=== PATIENT | male | born 1940 | race Caucasian/White ===

== ENCOUNTER 2018-04-08 19:12 | Inpatient (IN) | payer MEDICARE ==
--- NOTE | 2018-04-08 19:54 | C.PDOC ---
History Of Present Illness 78 year old male presents to the emergency department status-post falling in his bathroom and hitting his head on the bathtub. Patient complains of pain in the back of his head, but denies loss of consciousness. Patient reports that he is feeling nauseous, and states that he has had two episodes of vomiting since the incident. - HPI Chief Complaint (Nursing): Trauma History Per: Patient History/Exam Limitations: no limitations Onset/Duration Of Symptoms: Hrs Location Of Injury: Posterior: Head, Neck - Fall Fall:Prior To Injury: Slipped Past Medical History Reviewed: Historical Data, Nursing Documentation, Vital Signs Vital Signs: Last Vital Signs Temp 97.6 F 04/08/18 19:24 Pulse 60 04/08/18 21:02 Resp 12 04/08/18 21:02 BP 156/94 H 04/08/18 21:02 Pulse Ox 97 04/08/18 21:21 - Medical History PMH: HTN, Hypercholesterolemia Denies: Chronic Kidney Disease Surgical History: No Surg Hx - [facility] Procedures CLOSED ENDOSCOPIC BIOPSY OF LARGE INTESTINE (11/15/14) ESOPHAGOGASTRODUODENOSCOPY [EGD] W/CLOSED BIOPSY (11/15/14) Family History: States: No Known Family Hx - Social History Hx Tobacco Use: No Hx Alcohol Use: No Hx Substance Use: No - Immunization History Hx Tetanus Toxoid Vaccination: No Hx Influenza Vaccination: Yes Hx Pneumococcal Vaccination: Yes Review Of Systems Gastrointestinal: Positive for: Nausea, Vomiting (x2) Musculoskeletal: Positive for: Neck Pain Physical Exam - Physical Exam Appears: Non-toxic, No Acute Distress Skin: Warm, Dry, No Rash Head: Normacephalic Eye(s): bilateral: Normal Inspection Nose: Normal Neck: Normal ROM (no limitations), Midline Cervical Tenderness, Supple Chest: Symmetrical Cardiovascular: Rhythm Regular, No Murmur Respiratory: Normal Breath Sounds, No Rales, No Rhonchi, No Wheezing Gastrointestinal/Abdominal: Normal Exam, Soft, No Tenderness, No Guarding, No Rebound Extremity: Normal ROM Neurological/Psych: Oriented x3, Normal Speech, Normal Cognition, Normal Motor, Normal Sensation, Normal Reflexes ED Course And Treatment - Laboratory Results Result Diagrams: 04/08/18 20:26 04/08/18 20:26 ECG: Interpreted By Me, Viewed By Me ECG Rhythm: Sinus Rhythm, 1st Degree HB, R BBB Interpretation Of ECG: Sinus bradycardia, non-spc IVCD. no acute changes, borderline tracings. Rate From EC O2 Sat by Pulse Oximetry: 97 (RA) Pulse Ox Interpretation: Normal - Radiology CXR: Interpreted by Me CXR Interpretation: Yes: No Acute Disease, Other (multiple odl healed fractured ribs.). No: Infiltrates Nexus Criteria: . Focal Neuro Deficit - CT Scan/US Head Other Rad Studies (CT/US): Read By Radiologist, Radiology Report Reviewed CT/US Interpretation: EXAM: CT Head Without Intravenous Contrast. . EXAM DATE /TIME: 04/08/2018 7:51 PM. . CLINICAL HISTORY: 78 years old, male; Injury or trauma; Fall; Initial encounter; Blunt trauma. (contusions or hematomas) and concussion / head injury. . TECHNIQUE: Axial computed tomography images of the head/brain without intravenous. contrast. All CT scans at this facility use one or more dose reduction. techniques, viz.: automated exposure control; ma/kV adjustment per patient size. (including targeted exams where dose is matched to indication; i.e. head); or. iterative reconstruction technique. . COMPARISON: There are no prior studies for comparison. . FINDINGS: Brain: Ventricles, sulci and gyri appear mildly small for the patient's age. There is no midline shift. Jon white differentiation is maintained. There are. acute bilateral subdural hematomas. There is a chronic component to the. subdural collections bilaterally.. There is subarachnoid hemorrhage along the. right parietal lobe. There is subdural hemorrhage along the tentorium. There. are vascular calcifications. Ventricles: See above. Bones: Cranial vault is intact. Soft tissues: There is a left posterior parietal scalp hematoma. Sinuses: There is no acute sinusitis. There are retention cyst/polyps in the. sinuses. Ears and mastoids: Middle ears and mastoids are unremarkable. Orbits : Orbital contents are unremarkable. . IMPRESSION: Acute bilateral subdural hematomas with chronic component. bilaterally; small amount of subarachnoid hemorrhage along the right parietal. lobe; ventricles, sulci and gyri appear mildly small for patient's age. suggesting possible increase intracranial pressure. . Addendum Dictated By: Rosario Kaba MD. Addendum Dictated Date Time:04/08/18. Addendum Signed by:Rosario Kaba MD. Addendum signed Date Time: 04/08/182104. Addendum Transcribed By: [facility]. Addendum Transcribed Date Time: 04/08/18. . ELENA/ . EXAM: CT Head Without Intravenous Contrast. . EXAM DATE/TIME: 04/08/2018 7: 51 PM. . CLINICAL HISTORY: 78 years old, male; Injury or trauma; Fall; Initial encounter; Blunt trauma. (contusions or hematomas) and concussion / head injury. . TECHNIQUE: Axial computed tomography images of the head/brain without intravenous. contrast. All CT scans at this facility use one or more dose reduction. techniques, viz.: automated exposure control; ma/kV adjustment per patient size. (including targeted exams where dose is matched to indication ; i.e. head); or. iterative reconstruction technique. . COMPARISON: There are no prior studies for comparison. . FINDINGS: Brain: Ventricles, sulci and gyri appear mildly small for the patient's age. There is no midline shift. Jon white differentiation is maintained. There are. acute bilateral subdural hematomas. There is a chronic component to the. subdural collections bilaterally.. There is subarachnoid hemorrhage along the. right parietal lobe. There is subdural hemorrhage along the tentorium. There. are vascular calcifications. Ventricles: See above. Bones: Cranial vault is intact. Soft tissues: There is a left posterior parietal scalp hematoma. Sinuses: There is no acute sinusitis. There are retention cyst/polyps in the. sinuses. Ears and mastoids: Middle ears and mastoids are unremarkable. Orbits: Orbital contents are unremarkable. . IMPRESSION: Acute bilateral subdural hematomas with chronic component. bilaterally; small amount of subarachnoid hemorrhage along the right parietal. lobe; ventricles, sulci and gyri appear mildly small for patient's age. suggesting possible increase intracranial pressure C-Spine CT Other Rad Studies (CT/US): Read By Radiologist, Radiology Report Reviewed CT/US Interpretation: CLINICAL HISTORY: 78 years old, male; Pain; Neck pain; Additional info: Injury. . TECHNIQUE: Axial computed tomography images of the cervical spine without intravenous. contrast. All CT scans at this facility use one or more dose reduction. techniques, viz.: automated exposure control; ma/kV adjustment per patient size. (including targeted exams where dose is matched to indication; i.e. head); or. iterative reconstruction technique. Coronal and sagittal reformatted images were created and reviewed. . COMPARISON: There are no prior studies for comparison. . FINDINGS: Limitations: Technique limits evaluation of intracranial structures. Vertebrae : There is maintenance of the cervical lordosis. There is no. prevertebral soft tissue swelling. There are no fractures. There is multilevel. degenerative change. There is disc space narrowing greatest at C5-C6 and C6-C7. There are degenerative osteophytes greatest at C4-C7. There is degenerative. facet disease at multiple levels.. Facet joints align anatomically. Spinous. processes align in the expected fashion. bony structures are osteopenic. Discs/ spinal canal/neural foramina: See above. Soft tissues: See above. Vasculature: There are vascular calcifications. Dental: There are dental caries and erosions. Thyroid: Thyroid is not optimally demonstrated. Lung apices: Lung apices are clear. Progress Note: Plan: CT C-Spine w/o Contrast. CT Head w/o Contrast. EKG. CMP. CBC Disposition Discussed With Dr.: Israel Salinas Doctor Will See Patient In The: Hospital Counseled Patient/Family Regarding: Diagnosis - Disposition Disposition: HOSPITALIZED Disposition Time: 21:25 Condition: GUARDED Forms: [employer] (Stateless) - Clinical Impression Clinical Impression: Subdural hematoma, post-traumatic, Subarachnoidal hemorrhage - Scribe Statement The provider has reviewed the documentation as recorded by the Scribe (Samir Martinez) Provider Attestation: All medical record entries made by the Scribe were at my direction and personally dictated by me. I have reviewed the chart and agree that the record accurately reflects my personal performance of the history, physical exam, medical decision making, and the department course for this patient. I have also personally directed, reviewed, and agree with the discharge instructions and disposition.
--- NOTE | 2018-04-08 19:56 | C.PDOC ---
- HPI Chief Complaint (Nursing): Trauma Past Medical History Vital Signs: Last Vital Signs Temp 97.6 F 04/08/18 19:24 Pulse 60 04/08/18 19:24 Resp 16 04/08/18 19:24 BP 164/84 H 04/08/18 19:24 Pulse Ox 97 04/08/18 19:24 - Medical History PMH: HTN, Hypercholesterolemia Denies: Chronic Kidney Disease - [facility] Procedures CLOSED ENDOSCOPIC BIOPSY OF LARGE INTESTINE (11/15/14) ESOPHAGOGASTRODUODENOSCOPY [EGD] W/CLOSED BIOPSY (11/15/14) Family History: States: Unknown Family Hx - Social History Hx Tobacco Use: No Hx Alcohol Use: No Hx Substance Use: No - Immunization History Hx Tetanus Toxoid Vaccination: No Hx Influenza Vaccination: Yes Hx Pneumococcal Vaccination: Yes ED Course And Treatment O2 Sat by Pulse Oximetry: 97 Disposition - Disposition
[2018-04-08 20:29] LABS: BASO # 0.1 K/uL (0.0-0.2); BASO % 0.6 % (0.0-2.0); EOS # 0.4 K/uL (0.0-0.7); EOS % 4.2 % (0.0-4.0); HEMOGLOBIN 14.3 g/dL (12.0-18.0); LYMPH # 2.2 K/uL (1.0-4.3); LYMPH % 21.7 % (20.0-40.0); MEAN CELL VOLUME 91.5 fL (80.0-94.0); MEAN CORPUSCULAR HEMOGLOBIN 31.6 pg (27.0-31.0); MEAN CORPUSCULAR HGB CONC 34.5 g/dL (33.0-37.0); MONO # 0.5 K/uL (0.0-0.8); MONO % 4.8 % (0.0-10.0); NEUT # 7.1 K/uL (1.8-7.0); NEUT % 68.7 % (50.0-75.0); RBC 4.52 Mil/uL (4.40-5.90); RED CELL DISTRIBUTION WIDTH 14.6 % (11.5-14.5)
[2018-04-08 20:31] LABS: WHITE BLOOD COUNT 10.4 K/uL (4.8-10.8)
[2018-04-08 20:42] LABS: ALB/GLOB RATIO 1.2 (1.0-2.1); ALBUMIN 4.6 g/dL (3.5-5.0); ALT/SGPT 27 U/L (21-72); AST/SGOT 37 U/L (17-59); BLOOD UREA NITROGEN 19 mg/dL (9-20); CALCIUM 11.1 mg/dl (8.6-10.4); GFR AFRICAN-AMERICAN > 60; GFR NON-AFRICAN AMERICAN > 60
--- NOTE | 2018-04-08 21:03 | CT ---
EXAM: CT Head Without Intravenous Contrast EXAM DATE/TIME: 04/08/2018 7:51 PM CLINICAL HISTORY: 78 years old, male; Injury or trauma; Fall; Initial encounter; Blunt trauma (contusions or hematomas) and concussion / head injury TECHNIQUE: Axial computed tomography images of the head/brain without intravenous contrast. All CT scans at this facility use one or more dose reduction techniques, viz.: automated exposure control; ma/kV adjustment per patient size (including targeted exams where dose is matched to indication; i.e. head); or iterative reconstruction technique. COMPARISON: There are no prior studies for comparison. FINDINGS: Brain: Ventricles, sulci and gyri appear mildly small for the patient's age. There is no midline shift. Jon white differentiation is maintained. There are acute bilateral subdural hematomas. There is a chronic component to the subdural collections bilaterally.. There is subarachnoid hemorrhage along the right parietal lobe. There is subdural hemorrhage along the tentorium. There are vascular calcifications. Ventricles: See above Bones: Cranial vault is intact. Soft tissues: There is a left posterior parietal scalp hematoma Sinuses: There is no acute sinusitis. There are retention cyst/polyps in the sinuses. Ears and mastoids: Middle ears and mastoids are unremarkable Orbits: Orbital contents are unremarkable. IMPRESSION: Acute bilateral subdural hematomas with chronic component bilaterally; small amount of subarachnoid hemorrhage along the right parietal lobe; ventricles, sulci and gyri appear mildly small for patient's age suggesting possible increase intracranial pressure
--- NOTE | 2018-04-08 21:10 | CT ---
EXAM: CT Cervical Spine Without Intravenous Contrast EXAM DATE/TIME: 04/08/2018 7:53 PM CLINICAL HISTORY: 78 years old, male; Pain; Neck pain; Additional info: Injury TECHNIQUE: Axial computed tomography images of the cervical spine without intravenous contrast. All CT scans at this facility use one or more dose reduction techniques, viz.: automated exposure control; ma/kV adjustment per patient size (including targeted exams where dose is matched to indication; i.e. head); or iterative reconstruction technique. Coronal and sagittal reformatted images were created and reviewed. COMPARISON: There are no prior studies for comparison. FINDINGS: Limitations: Technique limits evaluation of intracranial structures. Vertebrae: There is maintenance of the cervical lordosis. There is no prevertebral soft tissue swelling. There are no fractures. There is multilevel degenerative change. There is disc space narrowing greatest at C5-C6 and C6-C7. There are degenerative osteophytes greatest at C4-C7. There is degenerative facet disease at multiple levels.. Facet joints align anatomically. Spinous processes align in the expected fashion. bony structures are osteopenic Discs/spinal canal/neural foramina: See above. Soft tissues: See above. Vasculature: There are vascular calcifications. Dental: There are dental caries and erosions. Thyroid: Thyroid is not optimally demonstrated. Lung apices: Lung apices are clear. IMPRESSION: Osteopenia and degenerative change, no fracture; dental disease
[2018-04-08 21:30] LABS: PROTHROMBIN TIME 10.8 SECONDS (9.7-12.2)
--- NOTE | 2018-04-08 22:37 | CT ---
EXAM: CT Head Without Intravenous Contrast EXAM DATE/TIME: 04/08/2018 10:05 PM CLINICAL HISTORY: 78 years old, male; Injury or trauma; Fall; Initial encounter; Bleeding / hemorrhage; Additional info: Change in mental status; Subdural hematoma TECHNIQUE: Axial computed tomography images of the head/brain without intravenous contrast. All CT scans at this facility use one or more dose reduction techniques, viz.: automated exposure control; ma/kV adjustment per patient size (including targeted exams where dose is matched to indication; i.e. head); or iterative reconstruction technique. Coronal and sagittal reformatted images were created and reviewed. COMPARISON: CT - HEAD W/O CONTRAST 2018-04-08 20:20 FINDINGS: Brain: Ventricles are mildly effaced. There is a 4 mm midline shift to the left at the level of the third ventricle. There is mild effacement of sulci and gyri. Jon white differentiation is visualized. There is been interval increase in size of the acute bilateral subdural hemorrhages. Small chronic components continue to be visualized. There is been interval increase in subarachnoid hemorrhage. There is increased subdural blood along the falx. There continues to be subdural hemorrhage along the tentorium. Ventricles: See above Bones: Cranial vault is intact. Soft tissues: There is a small left posterior parietal scalp hematoma. Sinuses: There is no acute sinusitis. There are retention cyst/polyps in the sinuses. Mastoid air cells: Ears and mastoids: Middle ears and mastoids are unremarkable Orbits: Orbital contents are unremarkable. IMPRESSION: Increasing size of bilateral subdural hematomas, increasing subdural hematoma along the falx; increasing right subarachnoid hemorrhage; interval development of 4 mm midline shift to the left Right subdural collection measures approximately 12.4 mm in the high right parietal region, image 43 series 602 Additional nonemergent findings as described above.
--- NOTE | 2018-04-08 23:07 | CP.PCM.HP ---
Past Patient History - Past Medical History & Family History Past Medical History?: Yes - Past Social History Smoking Status: Never Smoked - CARDIAC Hx Hypercholesterolemia: Yes Hx Hypertension: Yes - PULMONARY Hx Respiratory Disorders: No - NEUROLOGICAL Hx Neurological Disorder: Yes - HEENT Hx HEENT Problems: No - RENAL Hx Chronic Kidney Disease: No - ENDOCRINE/METABOLIC Hx Endocrine Disorders: Yes Hx Diabetes Mellitus Type 1: Yes - HEMATOLOGICAL/ONCOLOGICAL Hx Blood Disorders: No - INTEGUMENTARY Hx Dermatological Problems: No - MUSCULOSKELETAL/RHEUMATOLOGICAL Hx Musculoskeletal Disorders: No Hx Falls: No - GASTROINTESTINAL Hx Gastrointestinal Disorders: No Other/Comment: Colonoscopy 2011 - GENITOURINARY/GYNECOLOGICAL Hx Genitourinary Disorders: Yes Hx Prostate Problems: Yes - PSYCHIATRIC Hx Substance Use: No - SURGICAL HISTORY Hx Surgeries: Yes Hx Herniorrhaphy: Yes (2006) Other/Comment: Prostate sx. - ANESTHESIA Hx Anesthesia: Yes Hx Anesthesia Reactions: No Hx Malignant Hyperthermia: No Meds Allergies/Adverse Reactions: Allergies Allergy/AdvReac Type Severity Reaction Status Date / Time No Known Allergies Allergy Unverified 04/08/18 19:31 Results - Vital Signs Recent Vital Signs: Last Vital Signs Temp 97.6 F 04/08/18 19:24 Pulse 66 04/08/18 22:36 Resp 20 04/08/18 22:36 BP 152/107 H 04/08/18 22:41 Pulse Ox 100 04/08/18 22:36 - Labs Result Diagrams: 04/08/18 20:26 04/08/18 20:26 Labs: Laboratory Results - last 24 hr 04/08/18 04/08/18 04/08/18 20:26 20:26 21:13 WBC 10.4 D RBC 4.52 Hgb 14.3 Hct 41.4 MCV 91.5 MCH 31.6 H MCHC 34.5 RDW 14.6 H Plt Count 181 MPV 9.0 Neut % (Auto) 68.7 Lymph % (Auto) 21.7 [place] % (Auto) 4.8 Eos % (Auto) 4.2 H Baso % (Auto) 0.6 Neut # (Auto) 7.1 H Lymph # (Auto) 2.2 [place] # (Auto) 0.5 Eos # (Auto) 0.4 Baso # (Auto) 0.1 PT 10.8 INR 1.0 APTT 33 Sodium 142 Potassium 4.1 Chloride 104 Carbon Dioxide 27 Anion Gap 14 BUN 19 Creatinine 1.0 Est GFR ( Amer) > 60 Est GFR (Non-Af Amer) > 60 Random Glucose 127 H Calcium 11.1 H Total Bilirubin 0.6 AST 37 ALT 27 Alkaline Phosphatase 134 H Total Protein 8.5 H Albumin 4.6 Globulin 3.8 Albumin/Globulin Ratio 1.2
--- NOTE | 2018-04-08 23:36 | CP.PCM.CON ---
History of Present Illness - History of Present Illness History of Present Illness: 78 M with h/o htn, dm, hyperlipidimia, brought in post fall from the ladder back wards with hitting head during the fall. Patient vomited 3 times in he ER. Patient when he came to ER was awake, alert and no neurological weakness noted. Head CT showed small b/l acute and some suspected chronic subdural hematoma, and small right subarachnoid hemorrhage. Patient at time of my eval was slightly lethargic, speech was slightly slurred, during interview, exam also conducted showed 4/5 right arm, right leg, weakness, tongue deviated to the right, slight weakness and prominience of right eyebrow, and facial weakness on right. Patient still knew his age, current month, he was in the hospital and why. With changes in the neuro exam repeat CT was done which showed worsening of b/l subdural hematoma, midline shift towards the left. Neurosurgery called again and Dr Decker will come urgently to for urgent evacuation of hematoma. OR being arranged. PMH as above PSH hernia surg Allergies NKDA Social history lives with family, denies smoking, alcohol, illicit drugs Meds reviewed, patient is on low dose ASA Review of Systems - Review of Systems All systems: reviewed and no additional remarkable complaints except (HPI) Past Patient History - Past Medical History & Family History Past Medical History?: Yes - Past Social History Smoking Status: Never Smoked Alcohol: None Drugs: Denies Home Situation {Lives}: With Family - CARDIAC Hx Hypercholesterolemia: Yes Hx Hypertension: Yes - PULMONARY Hx Respiratory Disorders: No - NEUROLOGICAL Hx Neurological Disorder: Yes - HEENT Hx HEENT Problems: No - RENAL Hx Chronic Kidney Disease: No - ENDOCRINE/METABOLIC Hx Endocrine Disorders: Yes Hx Diabetes Mellitus Type 1: Yes - HEMATOLOGICAL/ONCOLOGICAL Hx Blood Disorders: No - INTEGUMENTARY Hx Dermatological Problems: No - MUSCULOSKELETAL/RHEUMATOLOGICAL Hx Musculoskeletal Disorders: No Hx Falls: No - GASTROINTESTINAL Hx Gastrointestinal Disorders: No Other/Comment: Colonoscopy 2011 - GENITOURINARY/GYNECOLOGICAL Hx Genitourinary Disorders: Yes Hx Prostate Problems: Yes - PSYCHIATRIC Hx Substance Use: No - SURGICAL HISTORY Hx Surgeries: Yes Hx Herniorrhaphy: Yes (2006) Other/Comment: Prostate sx. - ANESTHESIA Hx Anesthesia: Yes Hx Anesthesia Reactions: No Hx Malignant Hyperthermia: No Meds Allergies/Adverse Reactions: Allergies Allergy/AdvReac Type Severity Reaction Status Date / Time No Known Allergies Allergy Unverified 04/08/18 19:31 - Medications Medications: Current Medications Amlodipine Besylate (Norvasc) 5 mg PO DAILY [facility] Home Med (Carvedilol [Carvedilol]) 12.5 mg PO BID [facility] Losartan Potassium (Cozaar) 100 mg PO DAILY [facility] Metformin HCl (Glucophage) 500 mg PO BID [facility] Physical Exam - Additional Findings Additional findings: * HEENT ISAURA, * Neck Supple * Chest Clear * CVS Regular, no gallop or rub * PA soft, nt bs present * Ext No edema * [employer] lethargic, 4/5 weakness in right arm, right leg, tongue deviating to right , weak right NL fold, no clear sensory deficit, slurred speech, language fine, plantars going down b/l, patient knew he is in hospital, his age and current month. * Skin turgor normal. Results - Vital Signs Recent Vital Signs: Last Vital Signs Temp 97.6 F 04/08/18 19:24 Pulse 66 04/08/18 22:36 Resp 20 04/08/18 22:36 BP 152/107 H 04/08/18 22:41 Pulse Ox 100 04/08/18 22:36 - Labs Result Diagrams: 04/08/18 20:26 04/08/18 20:26 Labs: Laboratory Results - last 24 hr 04/08/18 04/08/18 04/08/18 20:26 20:26 21:13 WBC 10.4 D RBC 4.52 Hgb 14.3 Hct 41.4 MCV 91.5 MCH 31.6 H MCHC 34.5 RDW 14.6 H Plt Count 181 MPV 9.0 Neut % (Auto) 68.7 Lymph % (Auto) 21.7 [place] % (Auto) 4.8 Eos % (Auto) 4.2 H Baso % (Auto) 0.6 Neut # (Auto) 7.1 H Lymph # (Auto) 2.2 [place] # (Auto) 0.5 Eos # (Auto) 0.4 Baso # (Auto) 0.1 PT 10.8 INR 1.0 APTT 33 Sodium 142 Potassium 4.1 Chloride 104 Carbon Dioxide 27 Anion Gap 14 BUN 19 Creatinine 1.0 Est GFR ( Amer) > 60 Est GFR (Non-Af Amer) > 60 Random Glucose 127 H Calcium 11.1 H Total Bilirubin 0.6 AST 37 ALT 27 Alkaline Phosphatase 134 H Total Protein 8.5 H Albumin 4.6 Globulin 3.8 Albumin/Globulin Ratio 1.2 Assessment & Plan - Assessment and Plan (Free Text) Assessment: * Traumatic subdural b/l with worsening clinical findings and ct scan, will go for urgent evacuation tonight by neuro-surgery * H/o HTN, NIDDM, hyperlipidimia, * Patient is on low dose ASA. Plan: * Evacuation of hematoma, pt would come to icu post surg * Supportive care * GI/DVT prophylaxis * Keep head elevated * See orders for detail.
[2018-04-09] MEDS ORDERED: Propofol 10 mg/ml 1,000 MG/100 ML VIAL ONE ×2 (00:02)
[2018-04-09] MEDS ORDERED: Propofol 10 mg/ml Inj (20 ML) ONE ×2 (00:04→01:52)
[2018-04-09] MEDS ORDERED: Midazolam 2 MG/2 ML VIAL ONE (00:04)
[2018-04-09] MEDS ORDERED: Lidocaine/Epinephrine 1% 1:100000 10 ML IJ ONE (00:13)
[2018-04-09] MEDS ORDERED: Absorbable Gelatin Sponge Size 100 ONE (00:13)
[2018-04-09] MEDS ORDERED: Thrombin Topical 20,000 Intl Units Spray Kit TOP ONE (00:14)
[2018-04-09] MEDS ORDERED: Thrombin Topical 5,000 Int Units Spray Kit ONE (00:14)
[2018-04-09] MEDS ORDERED: Bacitracin Ointment 30 GM TUBE ONE (00:14)
[2018-04-09] MEDS ORDERED: cefTRIAXone IV 1 gm in Dextros 50 ML IVPB ONE ×2 (00:14→00:55)
[2018-04-09] MEDS ORDERED: Rocuronium 10 mg/ml (5 ml) ONE (01:34)
[2018-04-09 03:37] LABS: ARTERIAL BLOOD GAS HEMOGLOBIN 13.1 g/dL (11.7-17.4); ARTERIAL BLOOD GAS PCO2 52 mm/Hg (35-45); ARTERIAL BLOOD GAS PH 7.34 (7.35-7.45); ARTERIAL BLOOD GAS PO2 131 mm/Hg (80-100); ARTERIAL BLOOD GAS TCO2 29.7 mmol/L (22-28)
[2018-04-09 06:34] LABS: BASO % 0.2 % (0.0-2.0); LYMPH # 1.2 K/uL (1.0-4.3); LYMPH % 10.4 % (20.0-40.0); MEAN CELL VOLUME 90.7 fL (80.0-94.0); MEAN CORPUSCULAR HEMOGLOBIN 31.2 pg (27.0-31.0); MEAN CORPUSCULAR HGB CONC 34.4 g/dL (33.0-37.0); MONO # 0.7 K/uL (0.0-0.8); MONO % 5.8 % (0.0-10.0); NEUT # 9.5 K/uL (1.8-7.0); NEUT % 83.6 % (50.0-75.0); RBC 4.19 Mil/uL (4.40-5.90); RED CELL DISTRIBUTION WIDTH 14.4 % (11.5-14.5); WHITE BLOOD COUNT 11.4 K/uL (4.8-10.8)
[2018-04-09 06:48] LABS: ALB/GLOB RATIO 1.2 (1.0-2.1); ALBUMIN 4.1 g/dL (3.5-5.0); ALT/SGPT 23 U/L (21-72); AST/SGOT 36 U/L (17-59); BLOOD UREA NITROGEN 19 mg/dL (9-20); GFR AFRICAN-AMERICAN > 60; GFR NON-AFRICAN AMERICAN > 60
[2018-04-09] MEDS ORDERED: Propofol 10 mg/ml 1,000 MG/100 ML VIAL IV PRN ×2 (07:00→10:05)
[2018-04-09] MEDS: niCARdipine IV 25 MG in Sodium Chloride 0.9% 240 ML IV SCH ×6 (07:19→20:19)
--- NOTE | 2018-04-09 09:31 | RAD ---
HISTORY: ICU admit/ head injury COMPARISON: Frontal chest radiograph 11/13/2014. FINDINGS: LUNGS: No active pulmonary disease. PLEURA: No significant pleural effusion identified, no pneumothorax apparent. CARDIOVASCULAR: Normal. OSSEOUS STRUCTURES: No significant abnormalities. VISUALIZED UPPER ABDOMEN: Normal. OTHER FINDINGS: Stable mild left hemidiaphragm elevation is evident, indeterminate etiology. IMPRESSION: No acute cardiopulmonary is appreciable. Stable limited left hemidiaphragm elevation of uncertain origin.
--- NOTE | 2018-04-09 09:33 | RAD ---
HISTORY: intubation COMPARISON: Portable chest 04/08/2018. FINDINGS: LUNGS: Endotracheal tube has now been placed terminating prostate 4 cm above the brandon. Limited patchy atelectasis or infiltrate seen the left base in the interval. The hemidiaphragm remains mildly elevated. No right-sided alveolar disease. PLEURA: No significant pleural effusion identified, no pneumothorax apparent. CARDIOVASCULAR: Normal. OSSEOUS STRUCTURES: No significant abnormalities. VISUALIZED UPPER ABDOMEN: Normal. OTHER FINDINGS: None. IMPRESSION: ET tube in position as described above. Limited left basilar patchy airspace disease now evident. Stable mild left hemidiaphragm elevation reiterated.
[2018-04-09] MEDS ORDERED: Propofol 10 mg/ml 1,000 MG/100 ML VIAL IVP PRN ×2 (09:49→10:02)
[2018-04-09] MEDS ORDERED: Vancomycin 1 gm/NS 200 ml 1 GM/200 ML BAG IVPB SCH ×2 (10:00→11:00)
[2018-04-09] MEDS: Piperacillin/Tazobact 3.375 GM in Sodium Chloride 100 ML IVPB SCH ×3 (10:48→21:25)
[2018-04-09] MEDS ORDERED: Mannitol 12.5 gm/50 ml Inj IV ONE (13:34)
--- NOTE | 2018-04-09 13:40 | CT ---
PROCEDURE: CT HEAD WITHOUT CONTRAST. HISTORY: off sedation mo motor movement, COMPARISON: Noncontrast head CT 04/08/2018. TECHNIQUE: Axial computed tomography images were obtained through the head/brain without intravenous contrast. Radiation dose: Total exam DLP = 1571.27 mGy-cm. This CT exam was performed using one or more of the following dose reduction techniques: Automated exposure control, adjustment of the mA and/or kV according to patient size, and/or use of iterative reconstruction technique. FINDINGS: In the interval, the patient is status post right parietal Kalli craniotomy with evacuation of the majority of right subdural hematoma noted with significant residual remaining across the convexity of the mid to superior right cerebrum. Left convexity subdural hematoma persists measuring up to 1 cm greatest thickness with a reversal of midline shift, previously to the left only 4 mm and now toward the right and 8 mm. Diffuse loss of sulcation persists secondary mass effect trace parafalcine and subdural hematoma persists. No definite parenchymal edema is appreciated above or below the tentorium at this time this cyst in surrounding the brainstem remain completely effaced. PARANASAL SINUSES: Lymphocytic polyp persist again evident. MASTOID AIR CELLS: Unremarkable as visualized. No inflammatory changes. OTHER FINDINGS: None. IMPRESSION: Status post right parietal craniotomy and evacuation of right convexity subdural hematoma with limited residual noted. Stable left convexity subdural hematoma remains up to 1 cm greatest thickness as unchanged in overall appearance. Trace parafalcine and tentorial subdural remains as well. Mass-effect is against exerted on the brain with no sulcal spaces apparent at this time and the basilar cisterns are completely effaced. No definite parenchymal edema appreciable. Continued clinical and CT monitoring are advised.
--- NOTE | 2018-04-09 13:57 | CP.PCM.PN ---
Subjective - Date & Time of Evaluation Date of Evaluation: 04/09/18 Time of Evaluation: 13:51 - Subjective Subjective: Pt was following commands and ADDISON this AM suddenly deteriorated Now pupils 8mm and unreactive weak corneal on R absent L min gag decerebrates to noxious New CT expasion of SDH on L as well as diffuse SAH and cerebral edema R side well evacuated A and P unfortunately Pt must have bleeding disorder likely 2 to ASA prognosis now dismal to hopeless agree w Dr Salinas plan hyperosmolarity ,platelets etc but likely to be futile Objective - Vital Signs/Intake and Output Vital Signs (last 24 hours): Temp Pulse Resp BP Pulse Ox 97.7 F 70 13 141/75 100 04/09/18 12:00 04/09/18 13:44 04/09/18 13:44 04/09/18 13:44 04/09/18 13:44 Intake and Output: 04/09/18 04/09/18 06:59 18:59 Intake Total 1000.0 777.8 Output Total 0 680 Balance 1000.0 97.8 - Medications Medications: Current Medications Nicardipine HCl 25 mg/ Sodium (Chloride) 250 mls @ 50 mls/hr IV .Q5H CARIN; 5 MG/ HR PRN Reason: Protocol Last Titration: 04/09/18 13:48 Dose: 5 mg/hr, 50 mls/hr Mannitol (Mannitol) 250 mls @ 0 mls/hr IV .Q0M CARIN PRN Reason: UD Mannitol (Mannitol) 250 mls @ 0 mls/hr IV .Q0M CARIN PRN Reason: UD Piperacillin Sod/Tazobactam (Sod 3.375 gm/ Sodium Chloride) 100 mls @ 200 mls/ hr IVPB Q6H CARIN PRN Reason: Protocol Last Admin: 04/09/18 10:48 Dose: 200 mls/hr Levetiracetam 500 mg/ Dextrose 105 mls @ 420 mls/hr IVPB Q12H [facility] Last Admin: 04/09/18 10:47 Dose: 420 mls/hr Propofol (Diprivan) 1,000 mg in 100 mls @ 2.558 mls/hr IV .Q24H PRN; Protocol; 5 MCG/KG/MIN PRN Reason: TITRATE PER MD ORDER Last Titration: 05/27/18 12:10 Dose: 10 mcg/kg/min, 5.117 mls/hr Vancomycin/Sodium Chloride (Vancomycin 1 Gm/Ns 200 Ml) 1 gm in 200 mls @ 166.7 mls/hr IVPB STAT CARIN PRN Reason: Protocol Stop: 04/14/18 11:01 Last Admin: 04/09/18 11:12 Dose: 166.7 mls/hr Sodium Chloride (Hypertonic Saline 3%) 500 mls @ 75 mls/hr IV ONCE ONE Stop: 04/09/18 20:39 Ondansetron HCl (Zofran Inj) 4 mg IVP Q6H PRN PRN Reason: Nausea/Vomiting Pantoprazole Sodium (Protonix Inj) 40 mg IVP DAILY [facility] Last Admin: 04/09/18 10:02 Dose: 40 mg - Labs Labs: 04/09/18 06:27 04/09/18 06:27 PT 10.8 SECONDS (9.7-12.2) 04/08/18 21:13 INR 1.0 04/08/18 21:13 APTT 33 SECONDS (21-34) 04/08/18 21:13
[2018-04-09] MEDS ORDERED: MANNITOL IV ONE ×2 (14:00)
[2018-04-09] MEDS ORDERED: Sodium Chloride 3% 500 ML IV ONE (14:00)
[2018-04-09 15:26] LABS: URINE BACTERIA RARE (<OCC); URINE BILIRUBIN NEGATIVE (NEGATIVE); URINE BLOOD NEGATIVE (NEGATIVE); URINE CLARITY Hazy (Clear); URINE COLOR Yellow (YELLOW); URINE GLUCOSE (UA) NORMAL (Normal); URINE LEUKOCYTE ESTERASE NEG Leu/uL (Negative); URINE PROTEIN 1+ mg/dL (NEGATIVE); URINE UROBILINOGEN NORMAL mg/dL (0.2-1.0)
[2018-04-09 15:36] LABS: BARBITURATES, UR NEGATIVE (NEGATIVE); BENZODIAZEPINES, UR NEGATIVE (NEGATIVE); OPIATES, UR NEGATIVE (NEGATIVE); PHENCYCLIDINE, UR NEGATIVE (NEGATIVE)
[2018-04-09] MEDS: Sodium Chloride 0.9% 1,000 ML IV SCH (16:19)
--- NOTE | 2018-04-09 18:10 | RAD ---
HISTORY: post NGT insertion COMPARISON: Portable chest 04/09/2018 3:27 a.m.. FINDINGS: LUNGS: Endotracheal tube is unchanged in position with nasogastric tube now placed terminating at the left upper quadrant abdomen. There is improved aeration at the left base with no infiltrate appreciated bilaterally. PLEURA: No significant pleural effusion identified, no pneumothorax apparent. Only marginal left hemidiaphragm elevation is now identified. CARDIOVASCULAR: Normal. OSSEOUS STRUCTURES: No significant abnormalities. VISUALIZED UPPER ABDOMEN: Normal. OTHER FINDINGS: None. IMPRESSION: No acute infiltrate or pleural effusion appreciated bilaterally. Nasogastric tube identified in good apparent position with stable appearing endotracheal intubation.
--- NOTE | 2018-04-09 18:14 | CP.PCM.PN ---
Subjective - Date & Time of Evaluation Date of Evaluation: 04/09/18 Time of Evaluation: 13:40 - Subjective Subjective: clinically same Objective - Vital Signs/Intake and Output Vital Signs (last 24 hours): Temp Pulse Resp BP Pulse Ox 100.5 F H 56 L 0 L 118/66 100 04/09/18 16:00 04/09/18 18:00 04/09/18 18:00 04/09/18 17:08 04/09/18 18:00 Intake and Output: 04/09/18 04/09/18 06:59 18:59 Intake Total 1000.0 1888.8 Output Total 0 1630 Balance 1000.0 258.8 - Medications Medications: Current Medications Nicardipine HCl 25 mg/ Sodium (Chloride) 250 mls @ 50 mls/hr IV .Q5H CARIN; 5 MG/ HR PRN Reason: Protocol Last Admin: 04/09/18 15:23 Dose: Not Given Mannitol (Mannitol) 250 mls @ 0 mls/hr IV .Q0M CARIN PRN Reason: UD Mannitol (Mannitol) 250 mls @ 0 mls/hr IV .Q0M CARIN PRN Reason: UD Piperacillin Sod/Tazobactam (Sod 3.375 gm/ Sodium Chloride) 100 mls @ 200 mls/ hr IVPB Q6H CARIN PRN Reason: Protocol Last Admin: 04/09/18 16:18 Dose: 200 mls/hr Levetiracetam 500 mg/ Dextrose 105 mls @ 420 mls/hr IVPB Q12H [facility] Last Admin: 04/09/18 10:47 Dose: 420 mls/hr Propofol (Diprivan) 1,000 mg in 100 mls @ 2.558 mls/hr IV .Q24H PRN; Protocol; 5 MCG/KG/MIN PRN Reason: TITRATE PER MD ORDER Last Titration: 04/09/18 12:10 Dose: 10 mcg/kg/min, 5.117 mls/hr Vancomycin/Sodium Chloride (Vancomycin 1 Gm/Ns 200 Ml) 1 gm in 200 mls @ 166.7 mls/hr IVPB STAT CARIN PRN Reason: Protocol Stop: 04/14/18 11:01 Last Admin: 04/09/18 11:12 Dose: 166.7 mls/hr Sodium Chloride (Hypertonic Saline 3%) 500 mls @ 75 mls/hr IV ONCE ONE Stop: 04/09/18 20:39 Last Admin: 04/09/18 14:02 Dose: 75 mls/hr Sodium Chloride (Sodium Chloride 0.9%) 1,000 mls @ 75 mls/hr IV .[id number] [facility] Last Admin: 04/09/18 16:19 Dose: 75 mls/hr Ondansetron HCl (Zofran Inj) 4 mg IVP Q6H PRN PRN Reason: Nausea/Vomiting Pantoprazole Sodium (Protonix Inj) 40 mg IVP DAILY [facility] Last Admin: 04/09/18 10:02 Dose: 40 mg - Labs Labs: 04/09/18 06:27 04/09/18 06:27 PT 10.8 SECONDS (9.7-12.2) 04/08/18 21:13 INR 1.0 04/08/18 21:13 APTT 33 SECONDS (21-34) 04/08/18 21:13 - Constitutional Appears: Well - Head Exam Head Exam: ATRAUMATIC, NORMAL INSPECTION, NORMOCEPHALIC - Eye Exam Eye Exam: EOMI, Normal appearance, PERRL Pupil Exam: NORMAL ACCOMODATION, PERRL - ENT Exam ENT Exam: Mucous Membranes Moist, Normal Exam - Neck Exam Neck Exam: Full ROM, Normal Inspection. absent: Lymphadenopathy - Respiratory Exam Respiratory Exam: Decreased Breath Sounds - Cardiovascular Exam Cardiovascular Exam: REGULAR RHYTHM, +S1, +S2 - GI/Abdominal Exam GI & Abdominal Exam: Soft, Diminished Bowel Sounds - Rectal Exam Rectal Exam: Deferred Assessment and Plan (1) Coma Status: Acute (2) Subarachnoidal hemorrhage Status: Acute (3) Subdural hematoma, post-traumatic Status: Acute (4) H/O diverticulitis of colon Status: Acute (5) Hemorrhoids Status: Acute (6) Hyperlipidemia Status: Acute (7) Hypertension Status: Acute (8) Prophylactic measure Status: Acute (9) Rectal bleeding Status: Acute - Assessment and Plan (Free Text) Plan: iv zosyn iv mannitol angel same s/p neuro surg s/p intessivist s/pneurologist pulm follow up disc uss iwth famiy pt is lethagic post surg he was talking today am as per son but now he is not answering follow upwith neurog disucsed with nurse on duty
[2018-04-09] MEDS ORDERED: Acetaminophen 650mg/20.3ml solution UD PO ONE (20:00)
[2018-04-09 21:03] LABS: ALB/GLOB RATIO 1.2 (1.0-2.1); ALBUMIN 3.9 g/dL (3.5-5.0); ALT/SGPT 26 U/L (21-72); AST/SGOT 35 U/L (17-59); BLOOD UREA NITROGEN 19 mg/dL (9-20); CALCIUM 9.7 mg/dl (8.6-10.4); GFR AFRICAN-AMERICAN > 60; GFR NON-AFRICAN AMERICAN > 60
--- NOTE | 2018-04-09 23:15 | CON ---
DATE: ATTENDING PHYSICIAN: Bo Salinas MD LOCATION: The patient is in room number ICU bed 18. REASON FOR CONSULTATION: Head trauma, abnormal CAT scan, status post surgery. I was called in to assist his neuro status. CHIEF COMPLAINT: The patient was brought into [facility] by the family members through 911 with a history of trauma at home. From the history as per his son, while he was trying to fix up the curtain on finding the ladder in the bathroom, he fell backwards and hit his head on the tub. There is no clear documentation or witnessed how long he was on the floor or any loss of consciousness. From the fall, he did not have any external injuries; however, he had vomiting 3 times. He called his son for help. Son approached to him and brought him to the hospital for further evaluation. The patient was arrived here around 8 o'clock, has had a CAT scan which showed subdural hematoma. Two hours later, his mental status got worsened up. A repeat CAT scan was done, showed increasing his subdural hematoma. The patient was taken to the OR, and evacuation of the blood was done. Prior to that, ICP was brought down by mannitol properly. No clear history or witnessed seizure activities from the fall. No history of any symptoms related to this problem in the past. PAST MEDICAL HISTORY: Diabetes mellitus, hypertension, dyslipidemia, being followed regularly by his own primary care physician. PERSONAL HISTORY: Denies smoking or alcohol use. ALLERGIES: NO KNOWN ALLERGIES. REVIEW OF SYSTEMS: A 12-point system being reviewed from neuro, status post head trauma. MEDICATIONS: Propofol, levetiracetam, nicardipine, piperacillin, pantoprazole, vancomycin, ondansetron. PHYSICAL EXAMINATION: VITAL SIGNS: Blood pressure 110/56, mean artery pressure 77, respiratory rate 18, on vent, pulse rate 53. NEUROLOGIC: The patient is examined in the presence of his son. The patient is on sedation, being off propofol. Some movements have been noted. The patient was also seen in the presence of the nurse. I was told off propofol the patient has been moving all 4 extremities. Eyes are closed. On forcibly opening eye, pupil reactive to light from 5 mm to 3.5 mm equally on both sides. Corneal reflex brisk on his left than his right side. On manipulating the endotracheal tube, some gag movements noted. No spontaneous movements under sedation and off sedation. Left arm, some movements noted. On noxious stimuli, good movement on his left side appropriately and the right side arm moved with noxious stimuli. Right leg is not moving with a painful stimuli. Deep tendon reflexes are absent. Plantars are upgoing on both sides. Coordination and gait deferred at this time because of the above description. WORKUP: CT of the head which was done around 8 o'clock to 10 o'clock last night. The latest CAT scan was reviewed by me showed 2-compartmental bleed subdural, right more than his left side with subfalcine herniation about 4 mm to the left side. Subarachnoid bleed also noted in the right parietal region. This current bleed was somewhat worsening than the previous one which he did not show any mass effect and shift. EKG: Sinus bradycardia with some PVCs. BLOOD WORKUP: WBC 11.4, hemoglobin 13, hematocrit 38, platelets 174. Sodium 142, potassium 3.7, chloride 103, bicarbonate 27, BUN 19, creatinine 0.9, GFR more than 60, glucose 158. Alkaline phosphatase 134, protein 8.5. CONCLUSION: Mr. Adryan Devi has been presenting with status post head trauma with bicompartmental bleed, which he requires decompression to suppress his intracranial pressure. Following surgery, the patient under sedation showed some right hemiparesis more on his leg than his arm. The patient also showed evidence of Babinski sign and also has left more than right supratentorial dysfunction. RECOMMENDATIONS: 1. Continue hydration. Keep the mean arterial pressure around 100. 2. Propofol can be given lower dose for his comfort. 3. Agree with Keppra for now for seizure prophylaxis. 4. Keep euglycemic stage. 5. The patient should have CT of the head, which can be done tomorrow morning to assess his intracranial status. When medically stable, the patient will also need MRI of the brain as well as electroencephalogram will be done. In the meantime, continue the present management. The patient's condition has been discussed with his son extensively. Sina Scruggs MD
[2018-04-10] MEDS: niCARdipine IV 25 MG in Sodium Chloride 0.9% 240 ML IV SCH ×7 (00:45→20:45)
[2018-04-10] MEDS: Piperacillin/Tazobact 3.375 GM in Sodium Chloride 100 ML IVPB SCH ×4 (03:02→21:28)
[2018-04-10 05:34] LABS: BASO % 0.2 % (0.0-2.0); HEMOGLOBIN 12.9 g/dL (12.0-18.0); LYMPH # 1.1 K/uL (1.0-4.3); LYMPH % 8.7 % (20.0-40.0); MEAN CELL VOLUME 92.3 fL (80.0-94.0); MEAN CORPUSCULAR HEMOGLOBIN 30.8 pg (27.0-31.0); MEAN CORPUSCULAR HGB CONC 33.3 g/dL (33.0-37.0); MEAN PLATELET VOLUME 8.8 fL (7.2-11.7); MONO % 8.2 % (0.0-10.0); NEUT # 10.3 K/uL (1.8-7.0); NEUT % 82.9 % (50.0-75.0); PLATELET COUNT 193 K/uL (130-400); RED CELL DISTRIBUTION WIDTH 14.8 % (11.5-14.5); WHITE BLOOD COUNT 12.4 K/uL (4.8-10.8)
[2018-04-10 05:54] LABS: ARTERIAL BLOOD GAS HCO3 28.6 mmol/L (21-28); ARTERIAL BLOOD GAS HEMOGLOBIN 13.3 g/dL (11.7-17.4); ARTERIAL BLOOD GAS O2 SAT 99.1 % (95-98); ARTERIAL BLOOD GAS PCO2 37 mm/Hg (35-45); ARTERIAL BLOOD GAS PH 7.49 (7.35-7.45); ARTERIAL BLOOD GAS PO2 161 mm/Hg (80-100); ARTERIAL BLOOD GAS TCO2 29.3 mmol/L (22-28)
[2018-04-10 06:07] LABS: ALB/GLOB RATIO 1.2 (1.0-2.1); ALBUMIN 4.5 g/dL (3.5-5.0); ALT/SGPT 14 U/L (21-72); AST/SGOT 47 U/L (17-59); BLOOD UREA NITROGEN 16 mg/dL (9-20); CALCIUM 10.4 mg/dl (8.6-10.4); GFR AFRICAN-AMERICAN > 60; GFR NON-AFRICAN AMERICAN 58
[2018-04-10] MEDS: Sodium Chloride 0.9% 1,000 ML IV SCH ×3 (06:45→21:31)
--- NOTE | 2018-04-10 08:04 | RAD ---
HISTORY: vented COMPARISON: Portable chest 04/09/2018. FINDINGS: Endotracheal tube is unchanged in position as well as nasogastric tube. LUNGS: No active pulmonary disease. PLEURA: No significant pleural effusion identified, no pneumothorax apparent. CARDIOVASCULAR: Normal. OSSEOUS STRUCTURES: No significant abnormalities. VISUALIZED UPPER ABDOMEN: Normal. OTHER FINDINGS: None. IMPRESSION: No interval infiltrate, pleural effusion or pneumothorax identified. No pulmonary vascular congestion.
[2018-04-10 08:37] LABS: LYMPHOCYTE 9 % (20-40); MONOCYTE 6 % (0-10); NEUTROPHIL 85 % (50-75); PLATELET ESTIMATE NORMAL (NORMAL); TOTAL CELLS COUNTED 100
[2018-04-10 08:38] LABS: ANISOCYTOSIS SLIGHT; TOXIC GRANULATION PRESENT
--- NOTE | 2018-04-10 13:04 | CP.PCM.PN ---
Subjective - Date & Time of Evaluation Date of Evaluation: 04/10/18 Time of Evaluation: 13:01 - Subjective Subjective: pt in nuc med for CBF study apparently further deteriorated certainly prognosis dismal would certainly agree with withdrawal care as dictated by study Objective - Vital Signs/Intake and Output Vital Signs (last 24 hours): Temp Pulse Resp BP Pulse Ox 99.8 F H 85 19 148/98 H 100 04/10/18 07:53 04/10/18 12:05 04/10/18 12:05 04/10/18 12:05 04/10/18 12:05 Intake and Output: 04/10/18 04/10/18 06:59 18:59 Intake Total 2190.8 810 Output Total 3350 1700 Balance -1159.2 -890 - Medications Medications: Current Medications Nicardipine HCl 25 mg/ Sodium (Chloride) 250 mls @ 50 mls/hr IV .Q5H CARIN; 5 MG/ HR PRN Reason: Protocol Last Admin: 04/10/18 12:07 Dose: Not Given Mannitol (Mannitol) 250 mls @ 0 mls/hr IV .Q0M CARIN PRN Reason: UD Mannitol (Mannitol) 250 mls @ 0 mls/hr IV .Q0M CARIN PRN Reason: UD Piperacillin Sod/Tazobactam (Sod 3.375 gm/ Sodium Chloride) 100 mls @ 200 mls/ hr IVPB Q6H CARIN PRN Reason: Protocol Last Admin: 04/10/18 09:26 Dose: 200 mls/hr Levetiracetam 500 mg/ Dextrose 105 mls @ 420 mls/hr IVPB Q12H [facility] Last Admin: 04/10/18 09:26 Dose: 420 mls/hr Propofol (Diprivan) 1,000 mg in 100 mls @ 2.558 mls/hr IV .Q24H PRN; Protocol; 5 MCG/KG/MIN PRN Reason: TITRATE PER MD ORDER Last Titration: 04/10/18 00:00 Dose: 0 mcg/kg/min, 0 mls/hr Vancomycin/Sodium Chloride (Vancomycin 1 Gm/Ns 200 Ml) 1 gm in 200 mls @ 166.7 mls/hr IVPB STAT CARIN PRN Reason: Protocol Stop: 04/14/18 11:01 Last Admin: 04/09/18 11:12 Dose: 166.7 mls/hr Sodium Chloride (Sodium Chloride 0.9%) 1,000 mls @ 75 mls/hr IV .[id number] [facility] Last Admin: 04/10/18 06:45 Dose: 75 mls/hr Ondansetron HCl (Zofran Inj) 4 mg IVP Q6H PRN PRN Reason: Nausea/Vomiting Pantoprazole Sodium (Protonix Inj) 40 mg IVP DAILY [facility] Last Admin: 04/10/18 09:29 Dose: 40 mg - Labs Labs: 04/10/18 05:22 04/10/18 05:22 PT 10.8 SECONDS (9.7-12.2) 04/08/18 21:13 INR 1.0 04/08/18 21:13 APTT 33 SECONDS (21-34) 04/08/18 21:13
--- NOTE | 2018-04-10 13:45 | CP.CCUPN ---
CCU Subjective - Physician Review Events Since Last Encounter (Free Text): 04/10/18 13:43 Patient is a 78-year-old male with a history of diabetes hypertension and high cholesterol admitted with the subdural, intracerebral bleeding. Underwent surgical intervention, craniotomy. Postoperatively patient was doing okay, but since yesterday known family history of having increasing lethargic. Currently patient is very poorly responding. No gag reflex noted, he is not having any eye contact, no reflexes noted. CCU Objective - Vital Signs / Intake & Output Vital Signs (Last 4 hours): Vital Signs Pulse Resp BP Pulse Ox 04/10/18 12:05 85 19 148/98 H 100 04/10/18 11:26 83 19 136/82 100 04/10/18 10:08 69 19 141/75 100 04/10/18 10:00 66 19 100 Intake and Output (Last 8hrs): Intake & Output 04/09/18 04/10/18 04/10/18 22:59 06:59 14:59 Intake Total 1921.6 1195.2 910 Output Total 1650 2550 1850 Balance 271.6 -1354.8 -940 Weight 178 lb 9.6 oz Intake: IV 210 290 Intake, IV Amount 1591.6 905.2 910 Left Antecubital 0 Right Antecubital 41.6 5.2 0 Right Distal Port Femoral 525 110 Right External Jugular 0 Right Medial Port Femoral 625 600 625 Right Proximal Port 200 200 175 Femoral right medial port y 200 100 Oral 0 Other 120 Output: Urine 1650 2550 1850 Urethral (Jimenez) 1650 2550 1850 - Physical Exam Narrative Physical Exam (Free Text): 04/10/18 13:43 Patient vital signs are stable. On ventilator. No extra breathing effort noted Regular heart sound, nontender abdomen. Pedal edema noted [employer] comatose to Extensor reflexes in the legs noted Knee and ankle reflexes unelicitable No gag reflex, no cough reflex noted, bilateral pupils dilated and fixed. Fixed eye. No pain reflexes noted. There is no spontaneous breathing effort noted. Physical Exam Limitations: Positive for: Altered Mental Status Head: Positive for: Normocephalic Extroacular Muscles: Positive for: EOMI Conjunctiva: Positive for: Normal Mouth: Positive for: Moist Mucous Membranes Pharnyx: Positive for: Normal Nose (External): Positive for: Atraumatic Nose (Internal): Positive for: Normal Inspection Neck: Positive for: Normal Range of Motion Respiratory/Chest: Positive for: Clear to Auscultation Cardiovascular: Positive for: Regular Rate and Rhythm Abdomen: Negative for: Tenderness Back: Positive for: GCS, CN, SP Upper Extremity: Positive for: Normal Inspection. Negative for: Cyanosis, Edema Lower Extremity: Positive for: Normal Inspection. Negative for: Edema Skin: Positive for: Warm, Dry, Normal Color. Negative for: Rashes Psychiatric: Positive for: Alert, Oriented x 3, Normal Insight, Normal Concentration - Medications Active Medications: Active Medications Generic Name Dose Route Start Last Admin Trade Name Freq PRN Reason Stop Dose Admin Nicardipine HCl 25 mg/ Sodium 250 mls @ 50 mls/hr 04/08/18 23:45 04/10/18 12: 07 Chloride IV Not Given .Q5H CARIN Protocol 5 MG/HR Mannitol 250 mls @ 0 mls/hr 04/09/18 01:45 Mannitol IV .Q0M CARIN UD Mannitol 250 mls @ 0 mls/hr 04/09/18 01:45 Mannitol IV .Q0M CARIN UD Piperacillin Sod/Tazobactam 100 mls @ 200 mls/hr 04/09/18 10:00 04/10/18 09: 26 Sod 3.375 gm/ Sodium Chloride IVPB 200 mls/hr Q6H CARIN Administration Protocol Levetiracetam 500 mg/ Dextrose 105 mls @ 420 mls/hr 04/09/18 10:00 04/10/18 09:26 IVPB 420 mls/hr Q12H CARIN Administration Propofol 1,000 mg in 100 mls @ 2.558 mls/hr 04/09/18 07:00 04/10/18 00:00 Diprivan IV 0 mcg/kg/min .Q24H PRN 0 mls/hr TITRATE PER MD ORDER Titration Protocol 5 MCG/KG/MIN Vancomycin/Sodium Chloride 1 gm in 200 mls @ 166.7 mls/hr 04/09/18 11:00 11:12 Vancomycin 1 Gm/Ns 200 Ml IVPB 04/14/18 11:01 166.7 mls/hr STAT CARIN Administration Protocol Sodium Chloride 1,000 mls @ 75 mls/hr 04/09/18 15:45 04/10/18 06:45 Sodium Chloride 0.9% IV 75 mls/hr .[id number] CARIN Administration Ondansetron HCl 4 mg 04/08/18 23:37 Zofran Inj IVP Q6H PRN Nausea/Vomiting Pantoprazole Sodium 40 mg 04/09/18 10:00 04/10/18 09:29 Protonix Inj IVP 40 mg DAILY CARIN Administration - Patient Studies Lab Studies: Microbiology Studies 04/09/18 Unknown MRSA Culture (Admit) - Final Nose MRSA NOT DETECTED 04/09/18 14:57 Urine Culture - Final Urine,Jimenez No Growth (<1,000 CFU/ML) Lab Studies 04/10/18 04/10/18 04/10/18 Range/Units 06:03 05:38 05:22 WBC (4.8-10.8) K/uL RBC (4.40-5.90) Mil/uL Hgb (12.0-18.0) g/dL Hct (35.0-51.0) % MCV (80.0-94.0) fL MCH (27.0-31.0) pg MCHC (33.0-37.0) g/dL RDW (11.5-14.5) % Plt Count (130-400) K/uL MPV (7.2-11.7) fL Neut % (Auto) (50.0-75.0) % Lymph % (Auto) (20.0-40.0) % Carter % (Auto) (0.0-10.0) % Eos % (Auto) (0.0-4.0) % Baso % (Auto) (0.0-2.0) % Neut # (Auto) (1.8-7.0) K/uL Lymph # (Auto) (1.0-4.3) K/uL Carter # (Auto) (0.0-0.8) K/uL Eos # (Auto) (0.0-0.7) K/uL Baso # (Auto) (0.0-0.2) K/uL Neutrophils % (Manual) (50-75) % Lymphocytes % (Manual) (20-40) % Monocytes % (Manual) (0-10) % Toxic Granulation Platelet Estimate (NORMAL) Anisocytosis (manual) Puncture Site Selam pCO2 37 (35-45) mm/Hg pO2 161 H (80-100) mm/Hg HCO3 28.6 H (21-28) mmol/L ABG pH 7.49 H (7.35-7.45) ABG Total CO2 29.3 H (22-28) mmol/L ABG O2 Saturation 99.1 H (95-98) % ABG Base Excess 4.7 H (-2.0-3.0) mmol/L ABG Hemoglobin 13.3 (11.7-17.4) g/dL ABG Carboxyhemoglobin 1.2 (0.5-1.5) % POC ABG HHb (Measured) 0.9 (0.0-5.0) % ABG Methemoglobin 1.1 (0.0-3.0) % Tres Test Na A-a O2 Difference 78.0 mm/Hg Respiratory Index 0.5 Hgb O2 Saturation 96.9 (95.0-98.0) % Vent Mode Prvc Mechanical Rate 19 FiO2 40.0 % Tidal Volume 500 PEEP 5 Sodium 159 H (132-148) mmol/L Potassium 3.7 (3.6-5.2) mmol/L Chloride 118 H (98-107) mmol/L Carbon Dioxide 28 (22-30) mmol/L Anion Gap 16 (10-20) BUN 16 (9-20) mg/dL Creatinine 1.2 (0.8-1.5) mg/dL Est GFR ( Amer) > 60 Est GFR (Non-Af Amer) 58 POC Glucose (mg/dL) (65-110) mg/dL Random Glucose 155 H (75-110) mg/dL Serum Osmolality 330 H (272-300) mosm/kg Calcium 10.4 (8.6-10.4) mg/dl Phosphorus 2.6 (2.5-4.5) mg/dL Magnesium 2.7 H (1.6-2.3) mg/dL Total Bilirubin 0.9 (0.2-1.3) mg/dL AST 47 (17-59) U/L ALT 14 L D (21-72) U/L Alkaline Phosphatase 88 (38-126) U/L Total Protein 8.2 (6.3-8.3) g/dL Albumin 4.5 (3.5-5.0) g/dL Globulin 3.7 (2.2-3.9) gm/dL Albumin/Globulin Ratio 1.2 (1.0-2.1) Urine Color (YELLOW) Urine Clarity (Clear) Urine pH (5.0-8.0) Ur Specific [place] (1.003-1.030) Urine Protein (NEGATIVE) mg/dL Urine Glucose (UA) (Normal) mg/dL Urine Ketones (NEGATIVE) mg/dL Urine Blood (NEGATIVE) Urine Nitrate (NEGATIVE) Urine Bilirubin (NEGATIVE) Urine Urobilinogen (0.2-1.0) mg/dL Ur Leukocyte Esterase (Negative) John/uL Urine WBC (Auto) (0-5) /hpf Urine RBC (Auto) (0-3) /hpf Urine Bacteria (<OCC) Urine Opiates Screen (NEGATIVE) Urine Methadone Screen (NEGATIVE) Ur Barbiturates Screen (NEGATIVE) Ur Phencyclidine Scrn (NEGATIVE) Ur Amphetamines Screen (NEGATIVE) U Benzodiazepines Scrn (NEGATIVE) U Oth Cocaine Metabols (NEGATIVE) U Cannabinoids Screen (NEGATIVE) Blood Type Antibody Screen 04/10/18 04/10/18 04/10/18 Range/Units 05:22 05:13 00:13 WBC 12.4 H (4.8-10.8) K/uL RBC 4.20 L (4.40-5.90) Mil/uL Hgb 12.9 (12.0-18.0) g/dL Hct 38.8 (35.0-51.0) % MCV 92.3 (80.0-94.0) fL MCH 30.8 (27.0-31.0) pg MCHC 33.3 (33.0-37.0) g/dL RDW 14.8 H (11.5-14.5) % Plt Count 193 (130-400) K/uL MPV 8.8 (7.2-11.7) fL Neut % (Auto) 82.9 H (50.0-75.0) % Lymph % (Auto) 8.7 L (20.0-40.0) % Carter % (Auto) 8.2 (0.0-10.0) % Eos % (Auto) 0.0 (0.0-4.0) % Baso % (Auto) 0.2 (0.0-2.0) % Neut # (Auto) 10.3 H (1.8-7.0) K/uL Lymph # (Auto) 1.1 (1.0-4.3) K/uL Carter # (Auto) 1.0 H (0.0-0.8) K/uL Eos # (Auto) 0.0 (0.0-0.7) K/uL Baso # (Auto) 0.0 (0.0-0.2) K/uL Neutrophils % (Manual) 85 H (50-75) % Lymphocytes % (Manual) 9 L (20-40) % Monocytes % (Manual) 6 (0-10) % Toxic Granulation Present Platelet Estimate Normal (NORMAL) Anisocytosis (manual) Slight Puncture Site pCO2 (35-45) mm/Hg pO2 (80-100) mm/Hg HCO3 (21-28) mmol/L ABG pH (7.35-7.45) ABG Total CO2 (22-28) mmol/L ABG O2 Saturation (95-98) % ABG Base Excess (-2.0-3.0) mmol/L ABG Hemoglobin (11.7-17.4) g/dL ABG Carboxyhemoglobin (0.5-1.5) % POC ABG HHb (Measured) (0.0-5.0) % ABG Methemoglobin (0.0-3.0) % Tres Test A-a O2 Difference mm/Hg Respiratory Index Hgb O2 Saturation (95.0-98.0) % Vent Mode Mechanical Rate FiO2 % Tidal Volume PEEP Sodium (132-148) mmol/L Potassium (3.6-5.2) mmol/L Chloride (98-107) mmol/L Carbon Dioxide (22-30) mmol/L Anion Gap (10-20) BUN (9-20) mg/dL Creatinine (0.8-1.5) mg/dL Est GFR ( Amer) Est GFR (Non-Af Amer) POC Glucose (mg/dL) 181 H 171 H (65-110) mg/dL Random Glucose (75-110) mg/dL Serum Osmolality (272-300) mosm/kg Calcium (8.6-10.4) mg/dl Phosphorus (2.5-4.5) mg/dL Magnesium (1.6-2.3) mg/dL Total Bilirubin (0.2-1.3) mg/dL AST (17-59) U/L ALT (21-72) U/L Alkaline Phosphatase (38-126) U/L Total Protein (6.3-8.3) g/dL Albumin (3.5-5.0) g/dL Globulin (2.2-3.9) gm/dL Albumin/Globulin Ratio (1.0-2.1) Urine Color (YELLOW) Urine Clarity (Clear) Urine pH (5.0-8.0) Ur Specific [place] (1.003-1.030) Urine Protein (NEGATIVE) mg/dL Urine Glucose (UA) (Normal) mg/dL Urine Ketones (NEGATIVE) mg/dL Urine Blood (NEGATIVE) Urine Nitrate (NEGATIVE) Urine Bilirubin (NEGATIVE) Urine Urobilinogen (0.2-1.0) mg/dL Ur Leukocyte Esterase (Negative) John/uL Urine WBC (Auto) (0-5) /hpf Urine RBC (Auto) (0-3) /hpf Urine Bacteria (<OCC) Urine Opiates Screen (NEGATIVE) Urine Methadone Screen (NEGATIVE) Ur Barbiturates Screen (NEGATIVE) Ur Phencyclidine Scrn (NEGATIVE) Ur Amphetamines Screen (NEGATIVE) U Benzodiazepines Scrn (NEGATIVE) U Oth Cocaine Metabols (NEGATIVE) U Cannabinoids Screen (NEGATIVE) Blood Type Antibody Screen 04/09/18 04/09/18 04/09/18 Range/Units 20:38 20:38 17:44 WBC (4.8-10.8) K/uL RBC (4.40-5.90) Mil/uL Hgb (12.0-18.0) g/dL Hct (35.0-51.0) % MCV (80.0-94.0) fL MCH (27.0-31.0) pg MCHC (33.0-37.0) g/dL RDW (11.5-14.5) % Plt Count (130-400) K/uL MPV (7.2-11.7) fL Neut % (Auto) (50.0-75.0) % Lymph % (Auto) (20.0-40.0) % Carter % (Auto) (0.0-10.0) % Eos % (Auto) (0.0-4.0) % Baso % (Auto) (0.0-2.0) % Neut # (Auto) (1.8-7.0) K/uL Lymph # (Auto) (1.0-4.3) K/uL Carter # (Auto) (0.0-0.8) K/uL Eos # (Auto) (0.0-0.7) K/uL Baso # (Auto) (0.0-0.2) K/uL Neutrophils % (Manual) (50-75) % Lymphocytes % (Manual) (20-40) % Monocytes % (Manual) (0-10) % Toxic Granulation Platelet Estimate (NORMAL) Anisocytosis (manual) Puncture Site pCO2 (35-45) mm/Hg pO2 (80-100) mm/Hg HCO3 (21-28) mmol/L ABG pH (7.35-7.45) ABG Total CO2 (22-28) mmol/L ABG O2 Saturation (95-98) % ABG Base Excess (-2.0-3.0) mmol/L ABG Hemoglobin (11.7-17.4) g/dL ABG Carboxyhemoglobin (0.5-1.5) % POC ABG HHb (Measured) (0.0-5.0) % ABG Methemoglobin (0.0-3.0) % Tres Test A-a O2 Difference mm/Hg Respiratory Index Hgb O2 Saturation (95.0-98.0) % Vent Mode Mechanical Rate FiO2 % Tidal Volume PEEP Sodium 149 H (132-148) mmol/L Potassium 3.6 (3.6-5.2) mmol/L Chloride 111 H (98-107) mmol/L Carbon Dioxide 27 (22-30) mmol/L Anion Gap 15 (10-20) BUN 19 (9-20) mg/dL Creatinine 1.0 (0.8-1.5) mg/dL Est GFR ( Amer) > 60 Est GFR (Non-Af Amer) > 60 POC Glucose (mg/dL) 154 H (65-110) mg/dL Random Glucose 160 H (75-110) mg/dL Serum Osmolality 318 H (272-300) mosm/kg Calcium 9.7 (8.6-10.4) mg/dl Phosphorus 2.9 (2.5-4.5) mg/dL Magnesium 2.1 (1.6-2.3) mg/dL Total Bilirubin 0.9 (0.2-1.3) mg/dL AST 35 (17-59) U/L ALT 26 (21-72) U/L Alkaline Phosphatase 86 (38-126) U/L Total Protein 7.1 (6.3-8.3) g/dL Albumin 3.9 (3.5-5.0) g/dL Globulin 3.3 (2.2-3.9) gm/dL Albumin/Globulin Ratio 1.2 (1.0-2.1) Urine Color (YELLOW) Urine Clarity (Clear) Urine pH (5.0-8.0) Ur Specific [place] (1.003-1.030) Urine Protein (NEGATIVE) mg/dL Urine Glucose (UA) (Normal) mg/dL Urine Ketones (NEGATIVE) mg/dL Urine Blood (NEGATIVE) Urine Nitrate (NEGATIVE) Urine Bilirubin (NEGATIVE) Urine Urobilinogen (0.2-1.0) mg/dL Ur Leukocyte Esterase (Negative) John/uL Urine WBC (Auto) (0-5) /hpf Urine RBC (Auto) (0-3) /hpf Urine Bacteria (<OCC) Urine Opiates Screen (NEGATIVE) Urine Methadone Screen (NEGATIVE) Ur Barbiturates Screen (NEGATIVE) Ur Phencyclidine Scrn (NEGATIVE) Ur Amphetamines Screen (NEGATIVE) U Benzodiazepines Scrn (NEGATIVE) U Oth Cocaine Metabols (NEGATIVE) U Cannabinoids Screen (NEGATIVE) Blood Type Antibody Screen 04/09/18 04/09/18 04/08/18 Range/Units 15:01 14:57 23:25 WBC (4.8-10.8) K/uL RBC (4.40-5.90) Mil/uL Hgb (12.0-18.0) g/dL Hct (35.0-51.0) % MCV (80.0-94.0) fL MCH (27.0-31.0) pg MCHC (33.0-37.0) g/dL RDW (11.5-14.5) % Plt Count (130-400) K/uL MPV (7.2-11.7) fL Neut % (Auto) (50.0-75.0) % Lymph % (Auto) (20.0-40.0) % Carter % (Auto) (0.0-10.0) % Eos % (Auto) (0.0-4.0) % Baso % (Auto) (0.0-2.0) % Neut # (Auto) (1.8-7.0) K/uL Lymph # (Auto) (1.0-4.3) K/uL Carter # (Auto) (0.0-0.8) K/uL Eos # (Auto) (0.0-0.7) K/uL Baso # (Auto) (0.0-0.2) K/uL Neutrophils % (Manual) (50-75) % Lymphocytes % (Manual) (20-40) % Monocytes % (Manual) (0-10) % Toxic Granulation Platelet Estimate (NORMAL) Anisocytosis (manual) Puncture Site pCO2 (35-45) mm/Hg pO2 (80-100) mm/Hg HCO3 (21-28) mmol/L ABG pH (7.35-7.45) ABG Total CO2 (22-28) mmol/L ABG O2 Saturation (95-98) % ABG Base Excess (-2.0-3.0) mmol/L ABG Hemoglobin (11.7-17.4) g/dL ABG Carboxyhemoglobin (0.5-1.5) % POC ABG HHb (Measured) (0.0-5.0) % ABG Methemoglobin (0.0-3.0) % Tres Test A-a O2 Difference mm/Hg Respiratory Index Hgb O2 Saturation (95.0-98.0) % Vent Mode Mechanical Rate FiO2 % Tidal Volume PEEP Sodium (132-148) mmol/L Potassium (3.6-5.2) mmol/L Chloride (98-107) mmol/L Carbon Dioxide (22-30) mmol/L Anion Gap (10-20) BUN (9-20) mg/dL Creatinine (0.8-1.5) mg/dL Est GFR ( Amer) Est GFR (Non-Af Amer) POC Glucose (mg/dL) (65-110) mg/dL Random Glucose (75-110) mg/dL Serum Osmolality (272-300) mosm/kg Calcium (8.6-10.4) mg/dl Phosphorus (2.5-4.5) mg/dL Magnesium (1.6-2.3) mg/dL Total Bilirubin (0.2-1.3) mg/dL AST (17-59) U/L ALT (21-72) U/L Alkaline Phosphatase (38-126) U/L Total Protein (6.3-8.3) g/dL Albumin (3.5-5.0) g/dL Globulin (2.2-3.9) gm/dL Albumin/Globulin Ratio (1.0-2.1) Urine Color Yellow (YELLOW) Urine Clarity Hazy (Clear) Urine pH 5.0 (5.0-8.0) Ur Specific [place] 1.018 (1.003-1.030) Urine Protein 1+ H (NEGATIVE) mg/dL Urine Glucose (UA) Normal (Normal) mg/dL Urine Ketones Trace (NEGATIVE) mg/dL Urine Blood Negative (NEGATIVE) Urine Nitrate Negative (NEGATIVE) Urine Bilirubin Negative (NEGATIVE) Urine Urobilinogen Normal (0.2-1.0) mg/dL Ur Leukocyte Esterase Neg (Negative) John/uL Urine WBC (Auto) 6 H (0-5) /hpf Urine RBC (Auto) 4 H (0-3) /hpf Urine Bacteria Rare (<OCC) Urine Opiates Screen Negative (NEGATIVE) Urine Methadone Screen Negative (NEGATIVE) Ur Barbiturates Screen Negative (NEGATIVE) Ur Phencyclidine Scrn Negative (NEGATIVE) Ur Amphetamines Screen Negative (NEGATIVE) U Benzodiazepines Scrn Negative (NEGATIVE) U Oth Cocaine Metabols Negative (NEGATIVE) U Cannabinoids Screen Negative (NEGATIVE) Blood Type O POSITIVE Antibody Screen Negative Laboratory Results - last 24 hr 04/08/18 04/09/18 04/09/18 23:25 14:57 15:01 WBC RBC Hgb Hct MCV MCH MCHC RDW Plt Count MPV Neut % (Auto) Lymph % (Auto) Carter % (Auto) Eos % (Auto) Baso % (Auto) Neut # (Auto) Lymph # (Auto) Carter # (Auto) Eos # (Auto) Baso # (Auto) Neutrophils % (Manual) Lymphocytes % (Manual) Monocytes % (Manual) Toxic Granulation Platelet Estimate Anisocytosis (manual) Puncture Site pCO2 pO2 HCO3 ABG pH ABG Total CO2 ABG O2 Saturation ABG Base Excess ABG Hemoglobin ABG Carboxyhemoglobin POC ABG HHb (Measured) ABG Methemoglobin Tres Test A-a O2 Difference Respiratory Index Hgb O2 Saturation Vent Mode Mechanical Rate FiO2 Tidal Volume PEEP Sodium Potassium Chloride Carbon Dioxide Anion Gap BUN Creatinine Est GFR ( Amer) Est GFR (Non-Af Amer) POC Glucose (mg/dL) Random Glucose Serum Osmolality Calcium Phosphorus Magnesium Total Bilirubin AST ALT Alkaline Phosphatase Total Protein Albumin Globulin Albumin/Globulin Ratio Urine Color Yellow Urine Clarity Hazy Urine pH 5.0 Ur Specific [place] 1.018 Urine Protein 1+ H Urine Glucose (UA) Normal Urine Ketones Trace Urine Blood Negative Urine Nitrate Negative Urine Bilirubin Negative Urine Urobilinogen Normal Ur Leukocyte Esterase Neg Urine WBC (Auto) 6 H Urine RBC (Auto) 4 H Urine Bacteria Rare Urine Opiates Screen Negative Urine Methadone Screen Negative Ur Barbiturates Screen Negative Ur Phencyclidine Scrn Negative Ur Amphetamines Screen Negative U Benzodiazepines Scrn Negative U Oth Cocaine Metabols Negative U Cannabinoids Screen Negative Blood Type O POSITIVE Antibody Screen Negative 04/09/18 04/09/18 04/09/18 17:44 20:38 20:38 WBC RBC Hgb Hct MCV MCH MCHC RDW Plt Count MPV Neut % (Auto) Lymph % (Auto) Carter % (Auto) Eos % (Auto) Baso % (Auto) Neut # (Auto) Lymph # (Auto) Carter # (Auto) Eos # (Auto) Baso # (Auto) Neutrophils % (Manual) Lymphocytes % (Manual) Monocytes % (Manual) Toxic Granulation Platelet Estimate Anisocytosis (manual) Puncture Site pCO2 pO2 HCO3 ABG pH ABG Total CO2 ABG O2 Saturation ABG Base Excess ABG Hemoglobin ABG Carboxyhemoglobin POC ABG HHb (Measured) ABG Methemoglobin Tres Test A-a O2 Difference Respiratory Index Hgb O2 Saturation Vent Mode Mechanical Rate FiO2 Tidal Volume PEEP Sodium 149 H Potassium 3.6 Chloride 111 H Carbon Dioxide 27 Anion Gap 15 BUN 19 Creatinine 1.0 Est GFR ( Amer) > 60 Est GFR (Non-Af Amer) > 60 POC Glucose (mg/dL) 154 H Random Glucose 160 H Serum Osmolality 318 H Calcium 9.7 Phosphorus 2.9 Magnesium 2.1 Total Bilirubin 0.9 AST 35 ALT 26 Alkaline Phosphatase 86 Total Protein 7.1 Albumin 3.9 Globulin 3.3 Albumin/Globulin Ratio 1.2 Urine Color Urine Clarity Urine pH Ur Specific [place] Urine Protein Urine Glucose (UA) Urine Ketones Urine Blood Urine Nitrate Urine Bilirubin Urine Urobilinogen Ur Leukocyte Esterase Urine WBC (Auto) Urine RBC (Auto) Urine Bacteria Urine Opiates Screen Urine Methadone Screen Ur Barbiturates Screen Ur Phencyclidine Scrn Ur Amphetamines Screen U Benzodiazepines Scrn U Oth Cocaine Metabols U Cannabinoids Screen Blood Type Antibody Screen 04/10/18 04/10/18 04/10/18 00:13 05:13 05:22 WBC 12.4 H RBC 4.20 L Hgb 12.9 Hct 38.8 MCV 92.3 MCH 30.8 MCHC 33.3 RDW 14.8 H Plt Count 193 MPV 8.8 Neut % (Auto) 82.9 H Lymph % (Auto) 8.7 L Carter % (Auto) 8.2 Eos % (Auto) 0.0 Baso % (Auto) 0.2 Neut # (Auto) 10.3 H Lymph # (Auto) 1.1 Carter # (Auto) 1.0 H Eos # (Auto) 0.0 Baso # (Auto) 0.0 Neutrophils % (Manual) 85 H Lymphocytes % (Manual) 9 L Monocytes % (Manual) 6 Toxic Granulation Present Platelet Estimate Normal Anisocytosis (manual) Slight Puncture Site pCO2 pO2 HCO3 ABG pH ABG Total CO2 ABG O2 Saturation ABG Base Excess ABG Hemoglobin ABG Carboxyhemoglobin POC ABG HHb (Measured) ABG Methemoglobin Tres Test A-a O2 Difference Respiratory Index Hgb O2 Saturation Vent Mode Mechanical Rate FiO2 Tidal Volume PEEP Sodium Potassium Chloride Carbon Dioxide Anion Gap BUN Creatinine Est GFR ( Amer) Est GFR (Non-Af Amer) POC Glucose (mg/dL) 171 H 181 H Random Glucose Serum Osmolality Calcium Phosphorus Magnesium Total Bilirubin AST ALT Alkaline Phosphatase Total Protein Albumin Globulin Albumin/Globulin Ratio Urine Color Urine Clarity Urine pH Ur Specific [place] Urine Protein Urine Glucose (UA) Urine Ketones Urine Blood Urine Nitrate Urine Bilirubin Urine Urobilinogen Ur Leukocyte Esterase Urine WBC (Auto) Urine RBC (Auto) Urine Bacteria Urine Opiates Screen Urine Methadone Screen Ur Barbiturates Screen Ur Phencyclidine Scrn Ur Amphetamines Screen U Benzodiazepines Scrn U Oth Cocaine Metabols U Cannabinoids Screen Blood Type Antibody Screen 04/10/18 04/10/18 04/10/18 05:22 05:38 06:03 WBC RBC Hgb Hct MCV MCH MCHC RDW Plt Count MPV Neut % (Auto) Lymph % (Auto) Carter % (Auto) Eos % (Auto) Baso % (Auto) Neut # (Auto) Lymph # (Auto) Carter # (Auto) Eos # (Auto) Baso # (Auto) Neutrophils % (Manual) Lymphocytes % (Manual) Monocytes % (Manual) Toxic Granulation Platelet Estimate Anisocytosis (manual) Puncture Site Selam pCO2 37 pO2 161 H HCO3 28.6 H ABG pH 7.49 H ABG Total CO2 29.3 H ABG O2 Saturation 99.1 H ABG Base Excess 4.7 H ABG Hemoglobin 13.3 ABG Carboxyhemoglobin 1.2 POC ABG HHb (Measured) 0.9 ABG Methemoglobin 1.1 Tres Test Na A-a O2 Difference 78.0 Respiratory Index 0.5 Hgb O2 Saturation 96.9 Vent Mode Prvc Mechanical Rate 19 FiO2 40.0 Tidal Volume 500 PEEP 5 Sodium 159 H Potassium 3.7 Chloride 118 H Carbon Dioxide 28 Anion Gap 16 BUN 16 Creatinine 1.2 Est GFR ( Amer) > 60 Est GFR (Non-Af Amer) 58 POC Glucose (mg/dL) Random Glucose 155 H Serum Osmolality 330 H Calcium 10.4 Phosphorus 2.6 Magnesium 2.7 H Total Bilirubin 0.9 AST 47 ALT 14 L D Alkaline Phosphatase 88 Total Protein 8.2 Albumin 4.5 Globulin 3.7 Albumin/Globulin Ratio 1.2 Urine Color Urine Clarity Urine pH Ur Specific [place] Urine Protein Urine Glucose (UA) Urine Ketones Urine Blood Urine Nitrate Urine Bilirubin Urine Urobilinogen Ur Leukocyte Esterase Urine WBC (Auto) Urine RBC (Auto) Urine Bacteria Urine Opiates Screen Urine Methadone Screen Ur Barbiturates Screen Ur Phencyclidine Scrn Ur Amphetamines Screen U Benzodiazepines Scrn U Oth Cocaine Metabols U Cannabinoids Screen Blood Type Antibody Screen Fingerstick Blood Sugar Results: 181 Review of Systems - Review of Systems All systems: reviewed and no additional remarkable complaints except Assessment/Plan (1) Coma Assessment and plan: Patient is now comatose 2. Not responding. Repeat CAT scan currently pending. Nuclear scan for brain flow also pending Clinically patient has no brainstem reflexes We will continue to monitor the IV fluids. Electrolytes. Hydration. Maintain osmolality near 320. poor prognosis Current Visit: Yes Status: Acute (2) Subarachnoidal hemorrhage Current Visit: Yes Status: Acute (3) Subdural hematoma, post-traumatic Current Visit: Yes Status: Acute
--- NOTE | 2018-04-10 14:37 | CP.PCM.PN ---
Subjective - Date & Time of Evaluation Date of Evaluation: 04/10/18 Time of Evaluation: 14:00 - Subjective Subjective: clinically same Objective - Vital Signs/Intake and Output Vital Signs (last 24 hours): Temp Pulse Resp BP Pulse Ox 99.8 F H 72 10 L 123/73 100 04/10/18 07:53 04/10/18 14:08 04/10/18 14:08 04/10/18 14:08 04/10/18 14:08 Intake and Output: 04/10/18 04/10/18 06:59 18:59 Intake Total 2190.8 1010 Output Total 3350 2350 Balance -1159.2 -1340 - Medications Medications: Current Medications Nicardipine HCl 25 mg/ Sodium (Chloride) 250 mls @ 50 mls/hr IV .Q5H CARIN; 5 MG/ HR PRN Reason: Protocol Last Admin: 04/10/18 12:07 Dose: Not Given Mannitol (Mannitol) 250 mls @ 0 mls/hr IV .Q0M CARIN PRN Reason: UD Mannitol (Mannitol) 250 mls @ 0 mls/hr IV .Q0M [facility]IN PRN Reason: UD Piperacillin Sod/Tazobactam (Sod 3.375 gm/ Sodium Chloride) 100 mls @ 200 mls/ hr IVPB Q6H [facility]IN PRN Reason: Protocol Last Admin: 04/10/18 09:26 Dose: 200 mls/hr Levetiracetam 500 mg/ Dextrose 105 mls @ 420 mls/hr IVPB Q12H [facility] Last Admin: 04/10/18 09:26 Dose: 420 mls/hr Propofol (Diprivan) 1,000 mg in 100 mls @ 2.558 mls/hr IV .Q24H PRN; Protocol; 5 MCG/KG/MIN PRN Reason: TITRATE PER MD ORDER Last Titration: 04/10/18 00:00 Dose: 0 mcg/kg/min, 0 mls/hr Vancomycin/Sodium Chloride (Vancomycin 1 Gm/Ns 200 Ml) 1 gm in 200 mls @ 166.7 mls/hr IVPB STAT CARIN PRN Reason: Protocol Stop: 04/14/18 11:01 Last Admin: 04/09/18 11:12 Dose: 166.7 mls/hr Sodium Chloride (Sodium Chloride 0.9%) 1,000 mls @ 75 mls/hr IV .[id number] [facility] Last Admin: 04/10/18 06:45 Dose: 75 mls/hr Ondansetron HCl (Zofran Inj) 4 mg IVP Q6H PRN PRN Reason: Nausea/Vomiting Pantoprazole Sodium (Protonix Inj) 40 mg IVP DAILY [facility] Last Admin: 04/10/18 09:29 Dose: 40 mg - Labs Labs: 04/10/18 05:22 04/10/18 05:22 PT 10.8 SECONDS (9.7-12.2) 04/08/18 21:13 INR 1.0 04/08/18 21:13 APTT 33 SECONDS (21-34) 04/08/18 21:13 - Constitutional Appears: Well - Head Exam Head Exam: ATRAUMATIC, NORMAL INSPECTION, NORMOCEPHALIC - Eye Exam Eye Exam: EOMI, Normal appearance, PERRL Pupil Exam: NORMAL ACCOMODATION, PERRL - ENT Exam ENT Exam: Mucous Membranes Moist, Normal Exam - Neck Exam Neck Exam: Full ROM, Normal Inspection. absent: Lymphadenopathy - Respiratory Exam Respiratory Exam: Decreased Breath Sounds - Cardiovascular Exam Cardiovascular Exam: REGULAR RHYTHM, +S1, +S2 - GI/Abdominal Exam GI & Abdominal Exam: Soft, Diminished Bowel Sounds - Rectal Exam Rectal Exam: Deferred Assessment and Plan (1) Coma Status: Acute (2) Subarachnoidal hemorrhage Status: Acute (3) Subdural hematoma, post-traumatic Status: Acute (4) H/O diverticulitis of colon Status: Acute (5) Hemorrhoids Status: Acute (6) Hyperlipidemia Status: Acute (7) Hypertension Status: Acute (8) Prophylactic measure Status: Acute (9) Rectal bleeding Status: Acute - Assessment and Plan (Free Text) Plan: Patient is not responding No gag reflex Status post craniotomy Follow-up with the neurosurgery Follow-up with the neuro IV mannitol Follow-up with the pulmonary Status post optical lab technician
--- NOTE | 2018-04-10 15:03 | NM ---
PROCEDURE: Nuclear Cerebral Blood Flow Examination HISTORY: brain COMPARISON: Head CT examinations without contrast 04/10/2018 and 04/09/2018. TECHNIQUE: Following the intravenous administration of technetium 99 M DTPA 21.5 mCi, the Nuclear Cerebral Blood Flow examine a was performed using dynamic as well as immediate and delayed static imaging of the head. Multiple projections of been submitted. FINDINGS: Dynamic phase images demonstrate prompt uptake into the cervical carotid arterial system bilaterally but no intracranial uptake. The so-called "Hot nose in "Sinus seen throughout the examination as well as scalp activity. No significant uptake is appreciated in the brain however, defining brain in the proper clinical setting. IMPRESSION: Pattern is compatible with brain in the proper clinical setting. Findings discussed with Drs. Sevilla and Kael with written down read back verification 04/10/2018, 2:45 p.m..
--- NOTE | 2018-04-10 15:04 | CT ---
PROCEDURE: CT HEAD WITHOUT CONTRAST. HISTORY: post op follow up for SDH COMPARISON: Noncontrast head CT 04/09/2018. TECHNIQUE: Axial computed tomography images were obtained through the head/brain without intravenous contrast. Radiation dose: Total exam DLP = 1329.72 mGy-cm. This CT exam was performed using one or more of the following dose reduction techniques: Automated exposure control, adjustment of the mA and/or kV according to patient size, and/or use of iterative reconstruction technique. FINDINGS: HEMORRHAGE: Minimal new 4th ventricular hemorrhage is seen and likely at the at the lower vermis and lower phil. Trace acute hemorrhage is also appreciate the left thalamus/cerebral peduncle and potentially also the right cerebral peduncle. Left convexity subdural hematoma is increased in thickness measuring 1.3 cm with midline shift stable at 8 mm to the right. There is diminishing pneumocephaly postoperatively status post right parietal surgery for decompression of right subdural hematoma. No recurrence of right subdural hematoma is appreciate with limited hemorrhagic elements remaining at the right subdural space near the vertex once again. Posterior left parieto-occipital subdural is stable at 11 mm thickness. Trace parafalcine and tentorial subdural hematoma appear unchanged. BRAIN: Loss of the basilar cisterns persist due to sub uncal herniation. There is now marked cytotoxic edema throughout the entire brainstem and bilateral SPECIAL DISTRIBUTION CLERK distribution related to global ischemic event exerting edema throughout the brain which caused loss of the cisterns. Acute infarction is now affecting the bilateral [employer] DISTRI[employer]ION [employer]ERK distribution though the posteromedial parietal lobe is spared at this time. There elements of the acute subacute infarction of minimal segments of the upper right SOSA distribution at the bilateral frontal lobes. Infarction has also developed at the left basal ganglia and bilateral thalami. An inversion of cerebral density is seen relative to the cerebellum with the cerebellum paying greater in density than the cerebrum which can be seen in cases of the brain . VENTRICLES: Mild hydrocephalus is developing at the bilateral lateral ventricles. CALVARIUM: Prior right parietal ann holes reiterated. PARANASAL SINUSES: Unremarkable as visualized. No significant inflammatory changes. MASTOID AIR CELLS: Unremarkable as visualized. No inflammatory changes. OTHER FINDINGS: Postoperative changes seen at the right parietal scalp extending into the right mosque appear per occipital scalp with diminished sense emphysematous changes postoperatively. IMPRESSION: 1. Significant compression on the brainstem results in bilateral [employer] DIST[employer]ION [employer]ERK and diffuse brainstem infarction also affecting bilateral cerebral peduncles. New limited hemorrhage is seen affecting phil moderately and left cerebral peduncle minimally and likely the right cerebral peduncle as well. Limited acute subacute hemorrhage is seen involving the inferior margin of the vermis and is likely present in the 4th ventricle as well. Left convexity subdural hematoma stable though rightward midline shift is stable at 8 mm toward the right. 2. Although corticomedullary differentiation is adequate at the upper mid cerebrum, lower cerebral corticomedullary differentiation is poor and global ischemia is suggested with infarction suggested early at the inferior frontotemporal and parietal distribution. Cortical lucency is minimal at medial bilateral frontal lobes superiorly, indicating acute to subacute infarctions. Bilateral thalamic and left groin right basal ganglia acute to subacute infarcts are identified. 3. Right-sided op postoperative scalp changes are slightly diminished. 4. Inversion of cerebral versus cerebellar density which can be seen in cases of brain . Please see separate cerebral blood flow nuclear medicine exam also performed 04/10/2018. Findings discussed with Drs. Sevilla and Kael with written down read back verification 04/10/2018, 2:45 p.m..
[2018-04-11] MEDS: niCARdipine IV 25 MG in Sodium Chloride 0.9% 240 ML IV SCH ×2 (01:45→04:08)
[2018-04-11] MEDS: Piperacillin/Tazobact 3.375 GM in Sodium Chloride 100 ML IVPB SCH (04:06)
[2018-04-11] MEDS ORDERED: Sodium Chloride 0.9% 1,000 ML IV ONE ×2 (05:30→07:00)
[2018-04-11 05:49] LABS: ARTERIAL BLOOD GAS HEMOGLOBIN 13.3 g/dL (11.7-17.4); ARTERIAL BLOOD GAS O2 SAT 99.3 % (95-98); ARTERIAL BLOOD GAS PCO2 34 mm/Hg (35-45); ARTERIAL BLOOD GAS PH 7.45 (7.35-7.45); ARTERIAL BLOOD GAS PO2 129 mm/Hg (80-100); ARTERIAL BLOOD GAS TCO2 24.6 mmol/L (22-28)
[2018-04-11 06:42] LABS: BASO % 0.1 % (0.0-2.0); HEMOGLOBIN 13.7 g/dL (12.0-18.0); LYMPH # 0.9 K/uL (1.0-4.3); LYMPH % 6.9 % (20.0-40.0); MEAN CELL VOLUME 94.7 fL (80.0-94.0); MEAN CORPUSCULAR HEMOGLOBIN 30.6 pg (27.0-31.0); MEAN CORPUSCULAR HGB CONC 32.4 g/dL (33.0-37.0); MEAN PLATELET VOLUME 9.7 fL (7.2-11.7); MONO # 1.2 K/uL (0.0-0.8); MONO % 9.1 % (0.0-10.0); NEUT # 10.8 K/uL (1.8-7.0); NEUT % 83.9 % (50.0-75.0); PLATELET COUNT 171 K/uL (130-400); RBC 4.46 Mil/uL (4.40-5.90); RED CELL DISTRIBUTION WIDTH 15.6 % (11.5-14.5); WHITE BLOOD COUNT 12.8 K/uL (4.8-10.8)
--- NOTE | 2018-04-11 07:15 | OP ---
PROCEDURE DATE: 04/09/2018 PREOPERATIVE DIAGNOSIS: Acute right central subdural hematoma. POSTOPERATIVE DIAGNOSIS: Acute right central subdural hematoma. PROCEDURE: Right central craniotomy evacuation of subdural hematoma. SURGEON: Vinayak Decker MD ANESTHESIA: General endotracheal. ESTIMATED BLOOD LOSS: 75 mL. COMPLICATIONS: None. JUSTIFICATION: This procedure was performed under the emergency circumstances. The patient was admitted to the ER Tuesday night, was initially found to have relatively small to just moderated sized bilateral subdural hematomas, and he was neurologically intact. He deteriorated in the ER fairly quickly and became lethargic. He underwent a second CT scan, which documented marked expansion of the right-sided hematoma now with 4 mm of midline shift. Thus, he was brought to the operating room in an emergent fashion. He had been taking aspirin, but obviously there was nothing that we could do about. This was an urgent situation. I explained to the patient and his son the nature of the procedure, the rationale behind it, potential risks and complications including the potential for rebleeding, expansion of the left-sided hematoma etc. They understood all the above and elected to proceed. DESCRIPTION OF PROCEDURE: The patient was taken to the operating room, intubated, anesthetized. He was placed to the OR table in a predominantly supine position with a large rope placed under his right shoulder. Head turned maximally to the left on a donut. Table was tilted. Head was elevated, the entire posterior frontal and parietal and occipital regions were hair clipped, scrubbed, painted and draped in the usual sterile manner. Incision was traced down in a U fashion, starting at the area of the posterior temporalis heading towards the midline and then down towards the occipital region. This was infiltrated with 1% lidocaine with epinephrine. After prepping and draping, the incision was made with a 10-blade knife. The myocutaneous flap was fixed anteriorly. Production Editor was used to make 3 ann holes. The craniotome was used to elevate the flap. The epidural bleeding controlled with thrombinated powdered Gelfoam. The dura was then opened in a cruciate fashion to be encountered, was a mix of a solid and liquid clot. Some of this was suctioned into Lukens trap and sent to pathology, and then much clot as possible was evacuated using predominantly forceps, suction and irrigation. When the great majority of the clot was evacuated, hemostasis was assured with ____ and observation. A layer of Surgicel was placed in the exposed cortex. The dura was reapproximated using Nurolon layer and solid Gelfoam placed to the epidural space. The bone flap was reapproximated using 3 cranial ____. The wound was copiously irrigated with antibiotic solution. The galea was closed using interrupted inverted 2-0 Vicryl. Skin was closed with shelton. Bacitracin ointment and self-adhering dressing was placed. The patient was stable throughout the procedure. The patient was intentionally intubated and brought to the ICU directly in a stable fashion. Vinayak Decker MD
[2018-04-11 07:18] LABS: ALB/GLOB RATIO 1.1 (1.0-2.1); ALBUMIN 4.3 g/dL (3.5-5.0); CALCIUM 11.3 mg/dl (8.6-10.4)
[2018-04-11] MEDS ORDERED: Potassium Phosphate 15 MMOLE in Dextrose 5% In Water 250 ML IVPB ONE (08:15)
--- NOTE | 2018-04-11 08:24 | RAD ---
Chest x-ray single frontal view History: Vented. Comparison: 04/10/2018 Findings: Lines and tubes in stable position. Hyperinflation suggestive for COPD and or emphysematous changes. Biapical pleural thickening with upper lobe granulomatous changes. Diffuse increased interstitial lung markings. Right hilar prominence. Mild cardiomegaly with calcification at the aortic knob. Degenerative changes in the spine with paravertebral osteophytes. Impression: Lines and tubes in stable position. Hyperinflation suggestive for COPD and or emphysematous changes. Biapical pleural thickening with upper lobe granulomatous changes. Diffuse increased interstitial lung markings. Right hilar prominence. Mild cardiomegaly with calcification at the aortic knob. Degenerative changes in the spine with paravertebral osteophytes.
[2018-04-11 08:42] LABS: ANISOCYTOSIS SLIGHT; BANDS 4 % (0-2); LYMPHOCYTE 6 % (20-40); MONOCYTE 10 % (0-10); NEUTROPHIL 79 % (50-75); PLATELET ESTIMATE NORMAL (NORMAL); REACTIVE LYMPHOCYTES 1 % (0-0); TOTAL CELLS COUNTED 100
[2018-04-11] MEDS: Piperacill/Tazo 3.375gm in Dex 3.375 GM/50 ML BAG IVPB SCH ×3 (10:31→21:59)
--- NOTE | 2018-04-11 10:49 | PN ---
DATE: 04/11/2018 NEUROLOGICAL FOLLOWUP EVALUATION TIME OF EVALUATION: 7:05 a.m. NEUROLOGICAL PROBLEM: Posttraumatic dual compartmental bleed, status post subarachnoid evacuation on his right parietal area. Postoperative day #3, declining in his neural status yesterday. PHYSICAL EXAMINATION: VITAL SIGNS: His current vital signs, blood pressure 82/51, with mean arterial pressure of 58, respiratory rate 11 on vent, pulse rate 60 sinus. GENERAL: The patient is deeply comatose. No spontaneous movements noted. Both eyes are closed. Forcibly opening eyelids. HEENT: Pupils are fixed, 5 mm on both sides. No corneal reflexes noted. No oculocephalic response. No gag on manipulating the endotracheal tube. EXTREMITIES: Flaccid, quadriplegic, areflexic. Left leg externally rotated. Plantars are upgoing on both sides. Followup CT of the head being reviewed showed diffuse cerebral ischemia with hyperlucency over SOSA territory, bilateral thalamic area with shift left to the right in supracompartmental area and infracompartmentally left to right shift with significant pressure at the brainstem region. The patient also showed significant subdural hematoma with subarachnoid and intraventricular bleed also noted in the fourth ventricle region. The patient also did undergo nuclear cerebral blood flow studies, which also did not show any blood flow. This radiological evidence being discussed with the radiologist. The patient attained irreversible central nervous system damage. Overall prognosis is dismal. At this point, if the family agrees, I will advise to have a thermal extubation. No further workup is needed from neuro. Sina Scruggs MD
[2018-04-11] MEDS: Norepinephrine 8 MG in Dextrose 5% In Water 500 ML IV PRN (11:19)
--- NOTE | 2018-04-11 13:46 | CP.PCM.CON ---
History of Present Illness - History of Present Illness History of Present Illness: Palliative consult requested by Doctor Ward for goals of care discussion Patient is a 78 yo male admitted from home after fall in the bathroom and hitting the head. Patient initially denied LOC but later complained of nausea and vomiting. His son called 911. On admission the CT head was significant for B /L sdubdural hematoma and subarchnoid hemathoma, indicating elevated IC pressure. Patient underwent surgical decompensation of hematoma. PMH: HTN Soc. Hx: lives at home with son, and daughter in [facility]. Hx: denied by patient's son Review of Systems - Review of Systems All systems: reviewed and no additional remarkable complaints except Review of Systems: ROS obtained from nursing due to patient's status. Patient remained unresponsive Past Patient History - Past Medical History & Family History Past Medical History?: Yes - Past Social History Smoking Status: Never Smoked - CARDIAC Hx Hypercholesterolemia: Yes Hx Hypertension: Yes - PULMONARY Hx Respiratory Disorders: No - NEUROLOGICAL Hx Neurological Disorder: Yes - HEENT Hx HEENT Problems: No - RENAL Hx Chronic Kidney Disease: No - ENDOCRINE/METABOLIC Hx Endocrine Disorders: Yes Hx Diabetes Mellitus Type 1: Yes - HEMATOLOGICAL/ONCOLOGICAL Hx Blood Disorders: No - INTEGUMENTARY Hx Dermatological Problems: No - MUSCULOSKELETAL/RHEUMATOLOGICAL Hx Falls: Yes - GASTROINTESTINAL Hx Gastrointestinal Disorders: No Other/Comment: Colonoscopy 2011 - GENITOURINARY/GYNECOLOGICAL Hx Genitourinary Disorders: Yes Hx Prostate Problems: Yes - PSYCHIATRIC Hx Substance Use: No - SURGICAL HISTORY Hx Surgeries: Yes Hx Herniorrhaphy: Yes (2006) Other/Comment: Prostate sx. - ANESTHESIA Hx Anesthesia: Yes Hx Anesthesia Reactions: No Hx Malignant Hyperthermia: No Has any member of the family had a problem w/ anesthesia?: No Meds Allergies/Adverse Reactions: Allergies Allergy/AdvReac Type Severity Reaction Status Date / Time No Known Allergies Allergy Unverified 04/08/18 19:31 - Medications Medications: Current Medications Mannitol (Mannitol) 250 mls @ 0 mls/hr IV .Q0M CARIN PRN Reason: UD Mannitol (Mannitol) 250 mls @ 0 mls/hr IV .Q0M CARIN PRN Reason: UD Levetiracetam 500 mg/ Dextrose 105 mls @ 420 mls/hr IVPB Q12H CARIN Last Admin: 04/11/18 10:46 Dose: 420 mls/hr Vancomycin/Sodium Chloride (Vancomycin 1 Gm/Ns 200 Ml) 1 gm in 200 mls @ 166.7 mls/hr IVPB STAT [facility] PRN Reason: Protocol Stop: 04/14/18 11:01 Last Admin: 04/09/18 11:12 Dose: 166.7 mls/hr Potassium Phosphate 15 mmole/ (Dextrose) 255 mls @ 42.5 mls/hr IVPB ONCE ONE Stop: 04/11/18 14:14 Last Admin: 04/11/18 10:58 Dose: 42.5 mls/hr Desmopressin Acetate 2 mcg/ (Sodium Chloride) 50.5 mls @ 100 mls/hr IV BID [facility] Last Admin: 04/11/18 10:10 Dose: 100 mls/hr Dextrose (Dextrose 5% In Water 1000 Ml) 1,000 mls @ 200 mls/hr IV .Q5H [facility] Last Admin: 04/11/18 10:00 Dose: 200 mls/hr Piperacillin Sod/Tazobactam Sod (Zosyn 3.375 Gm Iv Premix) 3.375 gm in 50 mls @ 100 mls/hr IVPB Q6H [facility] PRN Reason: Protocol Last Admin: 04/11/18 10:31 Dose: 100 mls/hr Norepinephrine Bitartrate 8 mg (/ Dextrose) 508 mls @ 15.24 mls/hr IV .Q24H PRN ; Protocol; 4 MCG/MIN PRN Reason: TITRATE PER MD ORDER Last Admin: 04/11/18 11:19 Dose: 9.84 mcg/min, 37.5 mls/hr Ondansetron HCl (Zofran Inj) 4 mg IVP Q6H PRN PRN Reason: Nausea/Vomiting Pantoprazole Sodium (Protonix Inj) 40 mg IVP DAILY [facility] Last Admin: 04/11/18 10:25 Dose: 40 mg Physical Exam - Constitutional Appears: In Acute Distress - Head Exam Additional comments: Post craniotomy - Eye Exam Pupil Exam: Fixed - ENT Exam Additional comments: Intubated - Neck Exam Neck exam: Positive for: Normal Inspection - Respiratory Exam Additional comments: On MV - Cardiovascular Exam Cardiovascular Exam: Bradycardia - GI/Abdominal Exam GI & Abdominal Exam: Hypoactive Bowel Sounds - Rectal Exam Rectal Exam: Deferred - Extremities Exam Extremities exam: Positive for: pedal edema - Back Exam Back exam: NORMAL INSPECTION - Neurological Exam Neurological exam: Motor Sensory Deficit - Psychiatric Exam Psychiatric exam: Flat Affect - Skin Skin Exam: Pallor Results - Vital Signs Recent Vital Signs: Last Vital Signs Temp 98.3 F 04/11/18 12:00 Pulse 68 04/11/18 12:04 Resp 19 04/11/18 12:04 BP 100/57 L 04/11/18 12:04 Pulse Ox 99 04/11/18 12:04 - Labs Result Diagrams: 04/11/18 06:35 04/11/18 06:36 Labs: Laboratory Results - last 24 hr 04/10/18 04/10/18 04/10/18 14:14 17:30 23:38 WBC RBC Hgb Hct MCV MCH MCHC RDW Plt Count MPV Neut % (Auto) Lymph % (Auto) Glynn % (Auto) Eos % (Auto) Baso % (Auto) Neut # (Auto) Lymph # (Auto) Glynn # (Auto) Eos # (Auto) Baso # (Auto) Neutrophils % (Manual) Band Neutrophils % Lymphocytes % (Manual) Reactive Lymphs % Monocytes % (Manual) Platelet Estimate Anisocytosis (manual) Puncture Site pCO2 pO2 HCO3 ABG pH ABG Total CO2 ABG O2 Saturation ABG Base Excess ABG Hemoglobin ABG Carboxyhemoglobin POC ABG HHb (Measured) ABG Methemoglobin Tres Test A-a O2 Difference Respiratory Index Hgb O2 Saturation Vent Mode Mechanical Rate FiO2 Tidal Volume PEEP Sodium Potassium Chloride Carbon Dioxide Anion Gap BUN Creatinine Est GFR ( Amer) Est GFR (Non-Af Amer) POC Glucose (mg/dL) 173 H 167 H 168 H Random Glucose Serum Osmolality Calcium Phosphorus Magnesium Total Bilirubin AST ALT Alkaline Phosphatase Total Protein Albumin Globulin Albumin/Globulin Ratio 04/11/18 04/11/18 04/11/18 05:08 05:30 06:35 WBC 12.8 H RBC 4.46 Hgb 13.7 Hct 42.2 MCV 94.7 H D MCH 30.6 MCHC 32.4 L RDW 15.6 H Plt Count 171 MPV 9.7 Neut % (Auto) 83.9 H Lymph % (Auto) 6.9 L Glynn % (Auto) 9.1 Eos % (Auto) 0.0 Baso % (Auto) 0.1 Neut # (Auto) 10.8 H Lymph # (Auto) 0.9 L Glynn # (Auto) 1.2 H Eos # (Auto) 0.0 Baso # (Auto) 0.0 Neutrophils % (Manual) 79 H Band Neutrophils % 4 H Lymphocytes % (Manual) 6 L Reactive Lymphs % 1 H Monocytes % (Manual) 10 Platelet Estimate Normal Anisocytosis (manual) Slight Puncture Site Selam pCO2 34 L pO2 129 H HCO3 25.0 ABG pH 7.45 ABG Total CO2 24.6 ABG O2 Saturation 99.3 H ABG Base Excess 0.1 ABG Hemoglobin 13.3 ABG Carboxyhemoglobin 1.4 POC ABG HHb (Measured) 0.7 ABG Methemoglobin 0.8 Tres Test Na A-a O2 Difference 114.0 Respiratory Index 0.9 Hgb O2 Saturation 97.1 Vent Mode Prvc Mechanical Rate 19 FiO2 40.0 Tidal Volume 500 PEEP 5 Sodium Potassium Chloride Carbon Dioxide Anion Gap BUN Creatinine Est GFR ( Amer) Est GFR (Non-Af Amer) POC Glucose (mg/dL) 161 H Random Glucose Serum Osmolality Calcium Phosphorus Magnesium Total Bilirubin AST ALT Alkaline Phosphatase Total Protein Albumin Globulin Albumin/Globulin Ratio 04/11/18 04/11/18 04/11/18 06:36 11:00 11:21 WBC RBC Hgb Hct MCV MCH MCHC RDW Plt Count MPV Neut % (Auto) Lymph % (Auto) Glynn % (Auto) Eos % (Auto) Baso % (Auto) Neut # (Auto) Lymph # (Auto) Glynn # (Auto) Eos # (Auto) Baso # (Auto) Neutrophils % (Manual) Band Neutrophils % Lymphocytes % (Manual) Reactive Lymphs % Monocytes % (Manual) Platelet Estimate Anisocytosis (manual) Puncture Site pCO2 pO2 HCO3 ABG pH ABG Total CO2 ABG O2 Saturation ABG Base Excess ABG Hemoglobin ABG Carboxyhemoglobin POC ABG HHb (Measured) ABG Methemoglobin Tres Test A-a O2 Difference Respiratory Index Hgb O2 Saturation Vent Mode Mechanical Rate FiO2 Tidal Volume PEEP Sodium 183 H* Potassium 3.2 L Chloride 140 H Carbon Dioxide 29 Anion Gap 17 BUN 16 Creatinine 1.7 H Est GFR ( Amer) 47 Est GFR (Non-Af Amer) 39 POC Glucose (mg/dL) 289 H Random Glucose 167 H Serum Osmolality 367 H Calcium 11.3 H Phosphorus 1.3 L Magnesium 3.2 H Total Bilirubin 1.0 AST 95 H D ALT 12 L Alkaline Phosphatase 80 Total Protein 8.3 Albumin 4.3 Globulin 4.0 H Albumin/Globulin Ratio 1.1 Assessment & Plan - Assessment and Plan (Free Text) Assessment: Palliative consult Full code, no Advance Directive on chart, PPS o% I reviewed medical records, all diagnostic studies, examined patient n the bed. Patient looks acutely ill, with no corneal nor gag reflex. GCS 3. The bran flow test from yesterday showed no brain flow. Patient is only kept alive by implementation of aggressive measures . BP 82/51, HR 58. Pressors initiated Na 168 I discussed patient's condition with Doctor Eusebio pichardo. We agreed that at this point patient's condition is irreversible and was imminent but to be compliant with [place] Law regarding brain , we needed o correct electrolyte imbalance and BP. Than the apnea test will fallow. I met with patient's son Mr. Devi in the separate room. Mr. Devi was fully aware of his father;s severe condition. He remembers him as a very strong and healthy man and is in disbelief what happened. Mr. Devi wishes his mother and sister arrive here before patient is pronounced . I explained what next we had to do in order to fallow standards and provide everything necessary for his father. He agreed. Further we discussed the protocol after the was pronounced as [place] needed to know how much will he have to organize burial. Code status discussed. I explained that due to severe brain damage patient's heart may not be able to perform normally and could stop. I asked if we should do chest compressions if that happens. Mr. Devi said no and wanted us to allow patient to naturally. POLST completed. DNR/DNI entered. This was shared with ICU staff and Doctor Ward. Impression * This is critically ill man with clinical presentation of man * To comply with [place] Law of Brain standard, further interventions are needed ; electrolyte and BP corrections * Patient's son aware of critical condition * Son wishes, patient lasts until his and daughter arrive from [facility]; if not, he choose natural with out CPR Suggestions * [place] standards and allow natural or this very unfortunate man * Pastoral care for spiritual support * DNR/DNI Advance Care discussion 45 min
[2018-04-11 15:29] VITALS: O2SAT 100
--- NOTE | 2018-04-11 15:36 | CP.PCM.PN ---
Subjective - Date & Time of Evaluation Date of Evaluation: 04/11/18 Time of Evaluation: 13:00 - Subjective Subjective: clinically same Objective - Vital Signs/Intake and Output Vital Signs (last 24 hours): Temp Pulse Resp BP Pulse Ox 98.3 F 58 L 19 105/67 100 04/11/18 12:00 04/11/18 15:04 04/11/18 15:04 04/11/18 15:04 04/11/18 15:04 Intake and Output: 04/11/18 04/11/18 06:59 18:59 Intake Total 2625 3950.0 Output Total 1905 105 Balance 720 3845.0 - Medications Medications: Current Medications Mannitol (Mannitol) 250 mls @ 0 mls/hr IV .Q0M CARIN PRN Reason: UD Mannitol (Mannitol) 250 mls @ 0 mls/hr IV .Q0M CARIN PRN Reason: UD Levetiracetam 500 mg/ Dextrose 105 mls @ 420 mls/hr IVPB Q12H [facility] Last Admin: 04/11/18 10:46 Dose: 420 mls/hr Vancomycin/Sodium Chloride (Vancomycin 1 Gm/Ns 200 Ml) 1 gm in 200 mls @ 166.7 mls/hr IVPB STAT CARIN PRN Reason: Protocol Stop: 04/14/18 11:01 Last Admin: 04/09/18 11:12 Dose: 166.7 mls/hr Desmopressin Acetate 2 mcg/ (Sodium Chloride) 50.5 mls @ 100 mls/hr IV BID [facility] Last Admin: 04/11/18 10:10 Dose: 100 mls/hr Dextrose (Dextrose 5% In Water 1000 Ml) 1,000 mls @ 200 mls/hr IV .Q5H [facility] Last Admin: 04/11/18 10:00 Dose: 200 mls/hr Piperacillin Sod/Tazobactam Sod (Zosyn 3.375 Gm Iv Premix) 3.375 gm in 50 mls @ 100 mls/hr IVPB Q6H [facility]IN PRN Reason: Protocol Last Admin: 04/11/18 10:31 Dose: 100 mls/hr Norepinephrine Bitartrate 8 mg (/ Dextrose) 508 mls @ 15.24 mls/hr IV .Q24H PRN ; Protocol; 4 MCG/MIN PRN Reason: TITRATE PER MD ORDER Last Admin: 04/11/18 11:19 Dose: 9.84 mcg/min, 37.5 mls/hr Ondansetron HCl (Zofran Inj) 4 mg IVP Q6H PRN PRN Reason: Nausea/Vomiting Pantoprazole Sodium (Protonix Inj) 40 mg IVP DAILY [facility] Last Admin: 04/11/18 10:25 Dose: 40 mg - Labs Labs: 04/11/18 06:35 04/11/18 06:36 PT 10.8 SECONDS (9.7-12.2) 04/08/18 21:13 INR 1.0 04/08/18 21:13 APTT 33 SECONDS (21-34) 04/08/18 21:13 - Constitutional Appears: Well - Head Exam Head Exam: ATRAUMATIC, NORMAL INSPECTION, NORMOCEPHALIC - Eye Exam Eye Exam: EOMI, Normal appearance, PERRL Pupil Exam: NORMAL ACCOMODATION, PERRL - ENT Exam ENT Exam: Mucous Membranes Moist, Normal Exam - Neck Exam Neck Exam: Full ROM, Normal Inspection. absent: Lymphadenopathy - Respiratory Exam Respiratory Exam: Decreased Breath Sounds - Cardiovascular Exam Cardiovascular Exam: REGULAR RHYTHM, +S1, +S2 - GI/Abdominal Exam GI & Abdominal Exam: Soft, Diminished Bowel Sounds - Rectal Exam Rectal Exam: Deferred Assessment and Plan (1) Coma Status: Acute (2) Subarachnoidal hemorrhage Status: Acute (3) Subdural hematoma, post-traumatic Status: Acute (4) H/O diverticulitis of colon Status: Acute (5) Hemorrhoids Status: Acute (6) Hyperlipidemia Status: Acute (7) Hypertension Status: Acute (8) Prophylactic measure Status: Acute (9) Rectal bleeding Status: Acute
--- NOTE | 2018-04-11 17:28 | CP.CCUPN ---
<HomerannyJo - Last Filed: 04/11/18 17:08> CCU Subjective - Physician Review Subjective (Free Text): Patient seen and examined at bedside. On mechanical vent PRVC mode. CCU Objective - Vital Signs / Intake & Output Vital Signs (Last 4 hours): Vital Signs Pulse Resp BP Pulse Ox 04/11/18 15:04 58 L 19 105/67 100 04/11/18 14:04 60 19 105/59 L 100 Intake and Output (Last 8hrs): Intake & Output 04/11/18 04/11/18 04/11/18 06:59 14:59 22:59 Intake Total 2125 3670.0 280.0 Output Total 1030 75 30 Balance 1095 3595.0 250.0 Intake: IV 250 Intake, IV Amount 1875 3670.0 280.0 Left Antecubital 0 Right Antecubital 0 Right Distal Port Femoral 250.0 37.5 Right External Jugular 0 Right Medial Port Femoral 600 345.0 42.5 Right Proximal Port 175 2075 200 Femoral right medial port y 1100 1000 Output: Urine 1030 75 30 Urethral (Jimenez) 1030 75 30 - Physical Exam Head: Positive for: Normocephalic Extroacular Muscles: Positive for: EOMI Conjunctiva: Positive for: Normal Mouth: Positive for: Moist Mucous Membranes Pharnyx: Positive for: Normal Nose (External): Positive for: Atraumatic Nose (Internal): Positive for: Normal Inspection Neck: Positive for: Normal Range of Motion Respiratory/Chest: Positive for: Clear to Auscultation Cardiovascular: Positive for: Regular Rate and Rhythm Abdomen: Negative for: Tenderness Back: Positive for: GCS, CN, SP Upper Extremity: Positive for: Normal Inspection. Negative for: Cyanosis, Edema Lower Extremity: Positive for: Normal Inspection. Negative for: Edema Skin: Positive for: Warm, Dry, Normal Color. Negative for: Rashes Psychiatric: Positive for: Alert, Oriented x 3, Normal Insight, Normal Concentration - Medications Active Medications: Active Medications Generic Name Dose Route Start Last Admin Trade Name Freq PRN Reason Stop Dose Admin Mannitol 250 mls @ 0 mls/hr 04/09/18 01:45 Mannitol IV .Q0M [facility] UD Mannitol 250 mls @ 0 mls/hr 04/09/18 01:45 Mannitol IV .Q0M [facility] UD Levetiracetam 500 mg/ Dextrose 105 mls @ 420 mls/hr 04/09/18 10:00 04/11/18 10:46 IVPB 420 mls/hr Q12H CARIN Administration Vancomycin/Sodium Chloride 1 gm in 200 mls @ 166.7 mls/hr 04/09/18 11:00 11:12 Vancomycin 1 Gm/Ns 200 Ml IVPB 04/14/18 11:01 166.7 mls/hr STAT CARIN Administration Protocol Desmopressin Acetate 2 mcg/ 50.5 mls @ 100 mls/hr 04/11/18 10:00 04/11/18 10: 10 Sodium Chloride IV 100 mls/hr BID CARIN Administration Dextrose 1,000 mls @ 200 mls/hr 04/11/18 09:45 04/11/18 16:00 Dextrose 5% In Water 1000 Ml IV 200 mls/hr .Q5H CARIN Administration Piperacillin Sod/Tazobactam Sod 3.375 gm in 50 mls @ 100 mls/hr 04/11/18 10: 30 04/11/18 16:44 Zosyn 3.375 Gm Iv Premix IVPB 100 mls/hr Q6H CARIN Administration Protocol Norepinephrine Bitartrate 8 mg 508 mls @ 15.24 mls/hr 04/11/18 11:00 11:19 / Dextrose IV 9.84 mcg/min .Q24H PRN 37.5 mls/hr TITRATE PER MD ORDER Administration Protocol 4 MCG/MIN Ondansetron HCl 4 mg 04/08/18 23:37 Zofran Inj IVP Q6H PRN Nausea/Vomiting Pantoprazole Sodium 40 mg 04/09/18 10:00 04/11/18 10:25 Protonix Inj IVP 40 mg DAILY CARIN Administration - Patient Studies Lab Studies: Lab Studies 04/11/18 04/11/18 04/11/18 Range/Units 11:21 11:00 06:36 WBC (4.8-10.8) K/uL RBC (4.40-5.90) Mil/uL Hgb (12.0-18.0) g/dL Hct (35.0-51.0) % MCV (80.0-94.0) fL MCH (27.0-31.0) pg MCHC (33.0-37.0) g/dL RDW (11.5-14.5) % Plt Count (130-400) K/uL MPV (7.2-11.7) fL Neut % (Auto) (50.0-75.0) % Lymph % (Auto) (20.0-40.0) % [place] % (Auto) (0.0-10.0) % Eos % (Auto) (0.0-4.0) % Baso % (Auto) (0.0-2.0) % Neut # (Auto) (1.8-7.0) K/uL Lymph # (Auto) (1.0-4.3) K/uL [place] # (Auto) (0.0-0.8) K/uL Eos # (Auto) (0.0-0.7) K/uL Baso # (Auto) (0.0-0.2) K/uL Neutrophils % (Manual) (50-75) % Band Neutrophils % (0-2) % Lymphocytes % (Manual) (20-40) % Reactive Lymphs % (0-0) % Monocytes % (Manual) (0-10) % Platelet Estimate (NORMAL) Anisocytosis (manual) Puncture Site pCO2 (35-45) mm/Hg pO2 (80-100) mm/Hg HCO3 (21-28) mmol/L ABG pH (7.35-7.45) ABG Total CO2 (22-28) mmol/L ABG O2 Saturation (95-98) % ABG Base Excess (-2.0-3.0) mmol/L ABG Hemoglobin (11.7-17.4) g/dL ABG Carboxyhemoglobin (0.5-1.5) % POC ABG HHb (Measured) (0.0-5.0) % ABG Methemoglobin (0.0-3.0) % Tres Test A-a O2 Difference mm/Hg Respiratory Index Hgb O2 Saturation (95.0-98.0) % Vent Mode Mechanical Rate FiO2 % Tidal Volume PEEP Sodium 183 H* (132-148) mmol/L Potassium 3.2 L (3.6-5.2) mmol/L Chloride 140 H (98-107) mmol/L Carbon Dioxide 29 (22-30) mmol/L Anion Gap 17 (10-20) BUN 16 (9-20) mg/dL Creatinine 1.7 H (0.8-1.5) mg/dL Est GFR ( Amer) 47 Est GFR (Non-Af Amer) 39 POC Glucose (mg/dL) 289 H (65-110) mg/dL Random Glucose 167 H (75-110) mg/dL Serum Osmolality 367 H (272-300) mosm/kg Calcium 11.3 H (8.6-10.4) mg/dl Phosphorus 1.3 L (2.5-4.5) mg/dL Magnesium 3.2 H (1.6-2.3) mg/dL Total Bilirubin 1.0 (0.2-1.3) mg/dL AST 95 H D (17-59) U/L ALT 12 L (21-72) U/L Alkaline Phosphatase 80 (38-126) U/L Total Protein 8.3 (6.3-8.3) g/dL Albumin 4.3 (3.5-5.0) g/dL Globulin 4.0 H (2.2-3.9) gm/dL Albumin/Globulin Ratio 1.1 (1.0-2.1) 04/11/18 04/11/18 04/11/18 Range/Units 06:35 05:30 05:08 WBC 12.8 H (4.8-10.8) K/uL RBC 4.46 (4.40-5.90) Mil/uL Hgb 13.7 (12.0-18.0) g/dL Hct 42.2 (35.0-51.0) % MCV 94.7 H D (80.0-94.0) fL MCH 30.6 (27.0-31.0) pg MCHC 32.4 L (33.0-37.0) g/dL RDW 15.6 H (11.5-14.5) % Plt Count 171 (130-400) K/uL MPV 9.7 (7.2-11.7) fL Neut % (Auto) 83.9 H (50.0-75.0) % Lymph % (Auto) 6.9 L (20.0-40.0) % [place] % (Auto) 9.1 (0.0-10.0) % Eos % (Auto) 0.0 (0.0-4.0) % Baso % (Auto) 0.1 (0.0-2.0) % Neut # (Auto) 10.8 H (1.8-7.0) K/uL Lymph # (Auto) 0.9 L (1.0-4.3) K/uL [place] # (Auto) 1.2 H (0.0-0.8) K/uL Eos # (Auto) 0.0 (0.0-0.7) K/uL Baso # (Auto) 0.0 (0.0-0.2) K/uL Neutrophils % (Manual) 79 H (50-75) % Band Neutrophils % 4 H (0-2) % Lymphocytes % (Manual) 6 L (20-40) % Reactive Lymphs % 1 H (0-0) % Monocytes % (Manual) 10 (0-10) % Platelet Estimate Normal (NORMAL) Anisocytosis (manual) Slight Puncture Site [place] pCO2 34 L (35-45) mm/Hg pO2 129 H (80-100) mm/Hg HCO3 25.0 (21-28) mmol/L ABG pH 7.45 (7.35-7.45) ABG Total CO2 24.6 (22-28) mmol/L ABG O2 Saturation 99.3 H (95-98) % ABG Base Excess 0.1 (-2.0-3.0) mmol/L ABG Hemoglobin 13.3 (11.7-17.4) g/dL ABG Carboxyhemoglobin 1.4 (0.5-1.5) % POC ABG HHb (Measured) 0.7 (0.0-5.0) % ABG Methemoglobin 0.8 (0.0-3.0) % Tres Test Na A-a O2 Difference 114.0 mm/Hg Respiratory Index 0.9 Hgb O2 Saturation 97.1 (95.0-98.0) % Vent Mode Prvc Mechanical Rate 19 FiO2 40.0 % Tidal Volume 500 PEEP 5 Sodium (132-148) mmol/L Potassium (3.6-5.2) mmol/L Chloride (98-107) mmol/L Carbon Dioxide (22-30) mmol/L Anion Gap (10-20) BUN (9-20) mg/dL Creatinine (0.8-1.5) mg/dL Est GFR ( Amer) Est GFR (Non-Af Amer) POC Glucose (mg/dL) 161 H (65-110) mg/dL Random Glucose (75-110) mg/dL Serum Osmolality (272-300) mosm/kg Calcium (8.6-10.4) mg/dl Phosphorus (2.5-4.5) mg/dL Magnesium (1.6-2.3) mg/dL Total Bilirubin (0.2-1.3) mg/dL AST (17-59) U/L ALT (21-72) U/L Alkaline Phosphatase (38-126) U/L Total Protein (6.3-8.3) g/dL Albumin (3.5-5.0) g/dL Globulin (2.2-3.9) gm/dL Albumin/Globulin Ratio (1.0-2.1) 04/10/18 04/10/18 Range/Units 23:38 17:30 WBC (4.8-10.8) K/uL RBC (4.40-5.90) Mil/uL Hgb (12.0-18.0) g/dL Hct (35.0-51.0) % MCV (80.0-94.0) fL MCH (27.0-31.0) pg MCHC (33.0-37.0) g/dL RDW (11.5-14.5) % Plt Count (130-400) K/uL MPV (7.2-11.7) fL Neut % (Auto) (50.0-75.0) % Lymph % (Auto) (20.0-40.0) % [place] % (Auto) (0.0-10.0) % Eos % (Auto) (0.0-4.0) % Baso % (Auto) (0.0-2.0) % Neut # (Auto) (1.8-7.0) K/uL Lymph # (Auto) (1.0-4.3) K/uL [place] # (Auto) (0.0-0.8) K/uL Eos # (Auto) (0.0-0.7) K/uL Baso # (Auto) (0.0-0.2) K/uL Neutrophils % (Manual) (50-75) % Band Neutrophils % (0-2) % Lymphocytes % (Manual) (20-40) % Reactive Lymphs % (0-0) % Monocytes % (Manual) (0-10) % Platelet Estimate (NORMAL) Anisocytosis (manual) Puncture Site pCO2 (35-45) mm/Hg pO2 (80-100) mm/Hg HCO3 (21-28) mmol/L ABG pH (7.35-7.45) ABG Total CO2 (22-28) mmol/L ABG O2 Saturation (95-98) % ABG Base Excess (-2.0-3.0) mmol/L ABG Hemoglobin (11.7-17.4) g/dL ABG Carboxyhemoglobin (0.5-1.5) % POC ABG HHb (Measured) (0.0-5.0) % ABG Methemoglobin (0.0-3.0) % Tres Test A-a O2 Difference mm/Hg Respiratory Index Hgb O2 Saturation (95.0-98.0) % Vent Mode Mechanical Rate FiO2 % Tidal Volume PEEP Sodium (132-148) mmol/L Potassium (3.6-5.2) mmol/L Chloride (98-107) mmol/L Carbon Dioxide (22-30) mmol/L Anion Gap (10-20) BUN (9-20) mg/dL Creatinine (0.8-1.5) mg/dL Est GFR ( Amer) Est GFR (Non-Af Amer) POC Glucose (mg/dL) 168 H 167 H (65-110) mg/dL Random Glucose (75-110) mg/dL Serum Osmolality (272-300) mosm/kg Calcium (8.6-10.4) mg/dl Phosphorus (2.5-4.5) mg/dL Magnesium (1.6-2.3) mg/dL Total Bilirubin (0.2-1.3) mg/dL AST (17-59) U/L ALT (21-72) U/L Alkaline Phosphatase (38-126) U/L Total Protein (6.3-8.3) g/dL Albumin (3.5-5.0) g/dL Globulin (2.2-3.9) gm/dL Albumin/Globulin Ratio (1.0-2.1) Laboratory Results - last 24 hr 04/10/18 04/10/18 04/11/18 17:30 23:38 05:08 WBC RBC Hgb Hct MCV MCH MCHC RDW Plt Count MPV Neut % (Auto) Lymph % (Auto) [place] % (Auto) Eos % (Auto) Baso % (Auto) Neut # (Auto) Lymph # (Auto) [place] # (Auto) Eos # (Auto) Baso # (Auto) Neutrophils % (Manual) Band Neutrophils % Lymphocytes % (Manual) Reactive Lymphs % Monocytes % (Manual) Platelet Estimate Anisocytosis (manual) Puncture Site pCO2 pO2 HCO3 ABG pH ABG Total CO2 ABG O2 Saturation ABG Base Excess ABG Hemoglobin ABG Carboxyhemoglobin POC ABG HHb (Measured) ABG Methemoglobin Tres Test A-a O2 Difference Respiratory Index Hgb O2 Saturation Vent Mode Mechanical Rate FiO2 Tidal Volume PEEP Sodium Potassium Chloride Carbon Dioxide Anion Gap BUN Creatinine Est GFR ( Amer) Est GFR (Non-Af Amer) POC Glucose (mg/dL) 167 H 168 H 161 H Random Glucose Serum Osmolality Calcium Phosphorus Magnesium Total Bilirubin AST ALT Alkaline Phosphatase Total Protein Albumin Globulin Albumin/Globulin Ratio 04/11/18 04/11/18 04/11/18 05:30 06:35 06:36 WBC 12.8 H RBC 4.46 Hgb 13.7 Hct 42.2 MCV 94.7 H D MCH 30.6 MCHC 32.4 L RDW 15.6 H Plt Count 171 MPV 9.7 Neut % (Auto) 83.9 H Lymph % (Auto) 6.9 L [place] % (Auto) 9.1 Eos % (Auto) 0.0 Baso % (Auto) 0.1 Neut # (Auto) 10.8 H Lymph # (Auto) 0.9 L [place] # (Auto) 1.2 H Eos # (Auto) 0.0 Baso # (Auto) 0.0 Neutrophils % (Manual) 79 H Band Neutrophils % 4 H Lymphocytes % (Manual) 6 L Reactive Lymphs % 1 H Monocytes % (Manual) 10 Platelet Estimate Normal Anisocytosis (manual) Slight Puncture Site [place] pCO2 34 L pO2 129 H HCO3 25.0 ABG pH 7.45 ABG Total CO2 24.6 ABG O2 Saturation 99.3 H ABG Base Excess 0.1 ABG Hemoglobin 13.3 ABG Carboxyhemoglobin 1.4 POC ABG HHb (Measured) 0.7 ABG Methemoglobin 0.8 Tres Test Na A-a O2 Difference 114.0 Respiratory Index 0.9 Hgb O2 Saturation 97.1 Vent Mode Prvc Mechanical Rate 19 FiO2 40.0 Tidal Volume 500 PEEP 5 Sodium 183 H* Potassium 3.2 L Chloride 140 H Carbon Dioxide 29 Anion Gap 17 BUN 16 Creatinine 1.7 H Est GFR ( Amer) 47 Est GFR (Non-Af Amer) 39 POC Glucose (mg/dL) Random Glucose 167 H Serum Osmolality Calcium 11.3 H Phosphorus 1.3 L Magnesium 3.2 H Total Bilirubin 1.0 AST 95 H D ALT 12 L Alkaline Phosphatase 80 Total Protein 8.3 Albumin 4.3 Globulin 4.0 H Albumin/Globulin Ratio 1.1 04/11/18 04/11/18 11:00 11:21 WBC RBC Hgb Hct MCV MCH MCHC RDW Plt Count MPV Neut % (Auto) Lymph % (Auto) [place] % (Auto) Eos % (Auto) Baso % (Auto) Neut # (Auto) Lymph # (Auto) [place] # (Auto) Eos # (Auto) Baso # (Auto) Neutrophils % (Manual) Band Neutrophils % Lymphocytes % (Manual) Reactive Lymphs % Monocytes % (Manual) Platelet Estimate Anisocytosis (manual) Puncture Site pCO2 pO2 HCO3 ABG pH ABG Total CO2 ABG O2 Saturation ABG Base Excess ABG Hemoglobin ABG Carboxyhemoglobin POC ABG HHb (Measured) ABG Methemoglobin Tres Test A-a O2 Difference Respiratory Index Hgb O2 Saturation Vent Mode Mechanical Rate FiO2 Tidal Volume PEEP Sodium Potassium Chloride Carbon Dioxide Anion Gap BUN Creatinine Est GFR ( Amer) Est GFR (Non-Af Amer) POC Glucose (mg/dL) 289 H Random Glucose Serum Osmolality 367 H Calcium Phosphorus Magnesium Total Bilirubin AST ALT Alkaline Phosphatase Total Protein Albumin Globulin Albumin/Globulin Ratio Fingerstick Blood Sugar Results: 289 Assessment/Plan - Assessment and Plan (Free Text) Assessment: Patient is a 78-year-old male with a history of diabetes hypertension and high cholesterol admitted with the subdural, intracerebral bleeding. Underwent surgical intervention, craniotomy. Postoperatively patient was doing okay, but since yesterday known family history of having increasing lethargic.Currently patient is very poorly responding. No gag reflex noted, he is not having any eye contact, no reflexes noted. Plan: Neuro: GCS: 3T Sedation: None A: Subdural hematoma, s/p Right Central craniotomy evacuation of subdural hematoma. Brain Flow Nuclear Medicine (04/10/18): Pattern is compatible with brain in the proper clinical setting Head CT (04/10/18): 1.Significant compression on the brainstem results in bilateral FISCAL ASSISTANT and diffuse brainstem infarction also affecting bilateral cerebral peduncles. New limited hemorrhage is seen affecting phil moderately and left cerebral peduncle minimally and likely the right cerebral peduncle as well. Limited acute subacute hemorrhage is seen involving the inferior margin of the vermis and is likely present in the 4th ventricle as well. Left convexity subdural hematoma stable though rightward midline shift is stable at 8 mm toward the right. 2. Although corticomedullary differentiation is adequate at the upper mid cerebrum, lower cerebral corticomedullary differentiation is poor and global ischemia is suggested with infarction suggested early at the inferior frontotemporal and parietal distribution. Cortical lucency is minimal at medial bilateral frontal lobes superiorly, indicating acute to subacute infarctions. Bilateral thalamic and left groin right basal ganglia acute to subacute infarcts are identified. 3. Right-sided op postoperative scalp changes are slightly diminished. 4. Inversion of cerebral versus cerebellar density which can be seen in cases of brain . Please see separate cerebral blood flow nuclear medicine exam also performed 04/10/2018. Palliative Care Consulted DNR/DNI form Signed this AM Neurology/NeuroSurgery on Consult Cont. Mannitorl IV UD Continue Keppra 500mg IV Q12H Pulm A: COPD (per CXR) PRVC mode: 19Rate, 40%Fi02, 500TV, 5 PEEP AB.45/34/129/25 CXR (04/11): Lines and tubes in stable position. Hyperinflation suggestive for COPD and or emphysematous changes. Biapical pleural thickening with upper lobe granulomatous changes. Diffuse increased interstitial lung markings. Right hilar prominence. Mild cardiomegaly with calcification at the aortic knob. Degenerative changes in the spine with paravertebral osteophytes. Cardiology A: Hypotension Levophed Started NS 1L Bolus x 2 Given D50 in Water Bolus Given Renal: A: Hypernatremia, Hypokalemia, Hypophosphatemia d50 in Water Bolus Given Started D50 in Water at 200mls/hr Ddavp 2mcg IVP Given Repeat BMP at 16:30 - F/U Low Electrolytes Replaced. ID A: Leukocytosis MRSA Negative Urine Cultures NEGATIVE Patient on Vanc Dispo: Palliative Care Consulted. [place] standards to be followed and allow for natural . Pastoral Care for spiritual support, DNR/DNI Patient discussed with Attending Jo Sandoval, PGY-1 <Rk Kaplan S - Last Filed: 04/11/18 18:06> CCU Objective - Vital Signs / Intake & Output Vital Signs (Last 4 hours): Vital Signs Temp Pulse Resp BP Pulse Ox 04/11/18 17:04 56 L 5 L 109/72 100 04/11/18 16:04 57 L 20 115/66 100 04/11/18 16:00 97.6 F 04/11/18 15:04 58 L 19 105/67 100 04/11/18 14:04 60 19 105/59 L 100 Intake and Output (Last 8hrs): Intake & Output 04/11/18 04/11/18 04/11/18 06:59 14:59 22:59 Intake Total 2125 3670.0 797.5 Output Total 1030 75 65 Balance 1095 3595.0 732.5 Intake: IV 250 Intake, IV Amount 1875 3670.0 797.5 Left Antecubital 0 Right Antecubital 0 Right Distal Port Femoral 250.0 112.5 Right External Jugular 0 Right Medial Port Femoral 600 345.0 85.0 Right Proximal Port 175 2075 600 Femoral right medial port y 1100 1000 Output: Urine 1030 75 65 Urethral (Jimenez) 1030 75 65 - Medications Active Medications: Active Medications Generic Name Dose Route Start Last Admin Trade Name Freq PRN Reason Stop Dose Admin Mannitol 250 mls @ 0 mls/hr 04/09/18 01:45 Mannitol IV .Q0M [facility]D Mannitol 250 mls @ 0 mls/hr 04/09/18 01:45 Mannitol IV .Q0M [facility] Levetiracetam 500 mg/ Dextrose 105 mls @ 420 mls/hr 04/09/18 10:00 04/11/18 10:46 IVPB 420 mls/hr Q12H [facility] Administration Vancomycin/Sodium Chloride 1 gm in 200 mls @ 166.7 mls/hr 04/09/18 11:00 11:12 Vancomycin 1 Gm/Ns 200 Ml IVPB 04/14/18 11:01 166.7 mls/hr STAT [facility]IN Administration Protocol Desmopressin Acetate 2 mcg/ 50.5 mls @ 100 mls/hr 04/11/18 10:00 04/11/18 18: 01 Sodium Chloride IV 100 mls/hr BID [facility] Administration Dextrose 1,000 mls @ 200 mls/hr 04/11/18 09:45 04/11/18 16:00 Dextrose 5% In Water 1000 Ml IV 200 mls/hr .Q5H [facility] Administration Piperacillin Sod/Tazobactam Sod 3.375 gm in 50 mls @ 100 mls/hr 04/11/18 10: 30 04/11/18 16:44 Zosyn 3.375 Gm Iv Premix IVPB 100 mls/hr Q6H [facility] Administration Protocol Norepinephrine Bitartrate 8 mg 508 mls @ 15.24 mls/hr 04/11/18 11:00 11:19 / Dextrose IV 9.84 mcg/min .Q24H PRN 37.5 mls/hr TITRATE PER MD ORDER Administration Protocol 4 MCG/MIN Ondansetron HCl 4 mg 04/08/18 23:37 Zofran Inj IVP Q6H PRN Nausea/Vomiting Pantoprazole Sodium 40 mg 04/09/18 10:00 04/11/18 10:25 Protonix Inj IVP 40 mg DAILY CARIN Administration - Patient Studies Lab Studies: Lab Studies 04/11/18 04/11/18 04/11/18 Range/Units 17:43 17:07 11:21 WBC (4.8-10.8) K/uL RBC (4.40-5.90) Mil/uL Hgb (12.0-18.0) g/dL Hct (35.0-51.0) % MCV (80.0-94.0) fL MCH (27.0-31.0) pg MCHC (33.0-37.0) g/dL RDW (11.5-14.5) % Plt Count (130-400) K/uL MPV (7.2-11.7) fL Neut % (Auto) (50.0-75.0) % Lymph % (Auto) (20.0-40.0) % [place] % (Auto) (0.0-10.0) % Eos % (Auto) (0.0-4.0) % Baso % (Auto) (0.0-2.0) % Neut # (Auto) (1.8-7.0) K/uL Lymph # (Auto) (1.0-4.3) K/uL [place] # (Auto) (0.0-0.8) K/uL Eos # (Auto) (0.0-0.7) K/uL Baso # (Auto) (0.0-0.2) K/uL Neutrophils % (Manual) (50-75) % Band Neutrophils % (0-2) % Lymphocytes % (Manual) (20-40) % Reactive Lymphs % (0-0) % Monocytes % (Manual) (0-10) % Platelet Estimate (NORMAL) Anisocytosis (manual) Puncture Site pCO2 (35-45) mm/Hg pO2 (80-100) mm/Hg HCO3 (21-28) mmol/L ABG pH (7.35-7.45) ABG Total CO2 (22-28) mmol/L ABG O2 Saturation (95-98) % ABG Base Excess (-2.0-3.0) mmol/L ABG Hemoglobin (11.7-17.4) g/dL ABG Carboxyhemoglobin (0.5-1.5) % POC ABG HHb (Measured) (0.0-5.0) % ABG Methemoglobin (0.0-3.0) % Tres Test A-a O2 Difference mm/Hg Respiratory Index Hgb O2 Saturation (95.0-98.0) % Vent Mode Mechanical Rate FiO2 % Tidal Volume PEEP Sodium 170 H* (132-148) mmol/L Potassium 2.8 L (3.6-5.2) mmol/L Chloride 133 H (98-107) mmol/L Carbon Dioxide 24 (22-30) mmol/L Anion Gap 15 (10-20) BUN 26 H (9-20) mg/dL Creatinine 1.9 H (0.8-1.5) mg/dL Est GFR ( Amer) 42 Est GFR (Non-Af Amer) 34 POC Glucose (mg/dL) 276 H 289 H (65-110) mg/dL Random Glucose 277 H (75-110) mg/dL Serum Osmolality (272-300) mosm/kg Calcium 10.8 H (8.6-10.4) mg/dl Phosphorus (2.5-4.5) mg/dL Magnesium (1.6-2.3) mg/dL Total Bilirubin (0.2-1.3) mg/dL AST (17-59) U/L ALT (21-72) U/L Alkaline Phosphatase (38-126) U/L Total Protein (6.3-8.3) g/dL Albumin (3.5-5.0) g/dL Globulin (2.2-3.9) gm/dL Albumin/Globulin Ratio (1.0-2.1) 04/11/18 04/11/18 04/11/18 Range/Units 11:00 06:36 06:35 WBC 12.8 H (4.8-10.8) K/uL RBC 4.46 (4.40-5.90) Mil/uL Hgb 13.7 (12.0-18.0) g/dL Hct 42.2 (35.0-51.0) % MCV 94.7 H D (80.0-94.0) fL MCH 30.6 (27.0-31.0) pg MCHC 32.4 L (33.0-37.0) g/dL RDW 15.6 H (11.5-14.5) % Plt Count 171 (130-400) K/uL MPV 9.7 (7.2-11.7) fL Neut % (Auto) 83.9 H (50.0-75.0) % Lymph % (Auto) 6.9 L (20.0-40.0) % [place] % (Auto) 9.1 (0.0-10.0) % Eos % (Auto) 0.0 (0.0-4.0) % Baso % (Auto) 0.1 (0.0-2.0) % Neut # (Auto) 10.8 H (1.8-7.0) K/uL Lymph # (Auto) 0.9 L (1.0-4.3) K/uL [place] # (Auto) 1.2 H (0.0-0.8) K/uL Eos # (Auto) 0.0 (0.0-0.7) K/uL Baso # (Auto) 0.0 (0.0-0.2) K/uL Neutrophils % (Manual) 79 H (50-75) % Band Neutrophils % 4 H (0-2) % Lymphocytes % (Manual) 6 L (20-40) % Reactive Lymphs % 1 H (0-0) % Monocytes % (Manual) 10 (0-10) % Platelet Estimate Normal (NORMAL) Anisocytosis (manual) Slight Puncture Site pCO2 (35-45) mm/Hg pO2 (80-100) mm/Hg HCO3 (21-28) mmol/L ABG pH (7.35-7.45) ABG Total CO2 (22-28) mmol/L ABG O2 Saturation (95-98) % ABG Base Excess (-2.0-3.0) mmol/L ABG Hemoglobin (11.7-17.4) g/dL ABG Carboxyhemoglobin (0.5-1.5) % POC ABG HHb (Measured) (0.0-5.0) % ABG Methemoglobin (0.0-3.0) % Tres Test A-a O2 Difference mm/Hg Respiratory Index Hgb O2 Saturation (95.0-98.0) % Vent Mode Mechanical Rate FiO2 % Tidal Volume PEEP Sodium 183 H* (132-148) mmol/L Potassium 3.2 L (3.6-5.2) mmol/L Chloride 140 H (98-107) mmol/L Carbon Dioxide 29 (22-30) mmol/L Anion Gap 17 (10-20) BUN 16 (9-20) mg/dL Creatinine 1.7 H (0.8-1.5) mg/dL Est GFR ( Amer) 47 Est GFR (Non-Af Amer) 39 POC Glucose (mg/dL) (65-110) mg/dL Random Glucose 167 H (75-110) mg/dL Serum Osmolality 367 H (272-300) mosm/kg Calcium 11.3 H (8.6-10.4) mg/dl Phosphorus 1.3 L (2.5-4.5) mg/dL Magnesium 3.2 H (1.6-2.3) mg/dL Total Bilirubin 1.0 (0.2-1.3) mg/dL AST 95 H D (17-59) U/L ALT 12 L (21-72) U/L Alkaline Phosphatase 80 (38-126) U/L Total Protein 8.3 (6.3-8.3) g/dL Albumin 4.3 (3.5-5.0) g/dL Globulin 4.0 H (2.2-3.9) gm/dL Albumin/Globulin Ratio 1.1 (1.0-2.1) 04/11/18 04/11/18 04/10/18 Range/Units 05:30 05:08 23:38 WBC (4.8-10.8) K/uL RBC (4.40-5.90) Mil/uL Hgb (12.0-18.0) g/dL Hct (35.0-51.0) % MCV (80.0-94.0) fL MCH (27.0-31.0) pg MCHC (33.0-37.0) g/dL RDW (11.5-14.5) % Plt Count (130-400) K/uL MPV (7.2-11.7) fL Neut % (Auto) (50.0-75.0) % Lymph % (Auto) (20.0-40.0) % [place] % (Auto) (0.0-10.0) % Eos % (Auto) (0.0-4.0) % Baso % (Auto) (0.0-2.0) % Neut # (Auto) (1.8-7.0) K/uL Lymph # (Auto) (1.0-4.3) K/uL [place] # (Auto) (0.0-0.8) K/uL Eos # (Auto) (0.0-0.7) K/uL Baso # (Auto) (0.0-0.2) K/uL Neutrophils % (Manual) (50-75) % Band Neutrophils % (0-2) % Lymphocytes % (Manual) (20-40) % Reactive Lymphs % (0-0) % Monocytes % (Manual) (0-10) % Platelet Estimate (NORMAL) Anisocytosis (manual) Puncture Site [place] pCO2 34 L (35-45) mm/Hg pO2 129 H (80-100) mm/Hg HCO3 25.0 (21-28) mmol/L ABG pH 7.45 (7.35-7.45) ABG Total CO2 24.6 (22-28) mmol/L ABG O2 Saturation 99.3 H (95-98) % ABG Base Excess 0.1 (-2.0-3.0) mmol/L ABG Hemoglobin 13.3 (11.7-17.4) g/dL ABG Carboxyhemoglobin 1.4 (0.5-1.5) % POC ABG HHb (Measured) 0.7 (0.0-5.0) % ABG Methemoglobin 0.8 (0.0-3.0) % Tres Test Na A-a O2 Difference 114.0 mm/Hg Respiratory Index 0.9 Hgb O2 Saturation 97.1 (95.0-98.0) % Vent Mode Prvc Mechanical Rate 19 FiO2 40.0 % Tidal Volume 500 PEEP 5 Sodium (132-148) mmol/L Potassium (3.6-5.2) mmol/L Chloride (98-107) mmol/L Carbon Dioxide (22-30) mmol/L Anion Gap (10-20) BUN (9-20) mg/dL Creatinine (0.8-1.5) mg/dL Est GFR ( Amer) Est GFR (Non-Af Amer) POC Glucose (mg/dL) 161 H 168 H (65-110) mg/dL Random Glucose (75-110) mg/dL Serum Osmolality (272-300) mosm/kg Calcium (8.6-10.4) mg/dl Phosphorus (2.5-4.5) mg/dL Magnesium (1.6-2.3) mg/dL Total Bilirubin (0.2-1.3) mg/dL AST (17-59) U/L ALT (21-72) U/L Alkaline Phosphatase (38-126) U/L Total Protein (6.3-8.3) g/dL Albumin (3.5-5.0) g/dL Globulin (2.2-3.9) gm/dL Albumin/Globulin Ratio (1.0-2.1) Laboratory Results - last 24 hr 04/10/18 04/11/18 04/11/18 23:38 05:08 05:30 WBC RBC Hgb Hct MCV MCH MCHC RDW Plt Count MPV Neut % (Auto) Lymph % (Auto) [place] % (Auto) Eos % (Auto) Baso % (Auto) Neut # (Auto) Lymph # (Auto) [place] # (Auto) Eos # (Auto) Baso # (Auto) Neutrophils % (Manual) Band Neutrophils % Lymphocytes % (Manual) Reactive Lymphs % Monocytes % (Manual) Platelet Estimate Anisocytosis (manual) Puncture Site [place] pCO2 34 L pO2 129 H HCO3 25.0 ABG pH 7.45 ABG Total CO2 24.6 ABG O2 Saturation 99.3 H ABG Base Excess 0.1 ABG Hemoglobin 13.3 ABG Carboxyhemoglobin 1.4 POC ABG HHb (Measured) 0.7 ABG Methemoglobin 0.8 Tres Test Na A-a O2 Difference 114.0 Respiratory Index 0.9 Hgb O2 Saturation 97.1 Vent Mode Prvc Mechanical Rate 19 FiO2 40.0 Tidal Volume 500 PEEP 5 Sodium Potassium Chloride Carbon Dioxide Anion Gap BUN Creatinine Est GFR ( Amer) Est GFR (Non-Af Amer) POC Glucose (mg/dL) 168 H 161 H Random Glucose Serum Osmolality Calcium Phosphorus Magnesium Total Bilirubin AST ALT Alkaline Phosphatase Total Protein Albumin Globulin Albumin/Globulin Ratio 04/11/18 04/11/18 04/11/18 06:35 06:36 11:00 WBC 12.8 H RBC 4.46 Hgb 13.7 Hct 42.2 MCV 94.7 H D MCH 30.6 MCHC 32.4 L RDW 15.6 H Plt Count 171 MPV 9.7 Neut % (Auto) 83.9 H Lymph % (Auto) 6.9 L [place] % (Auto) 9.1 Eos % (Auto) 0.0 Baso % (Auto) 0.1 Neut # (Auto) 10.8 H Lymph # (Auto) 0.9 L [place] # (Auto) 1.2 H Eos # (Auto) 0.0 Baso # (Auto) 0.0 Neutrophils % (Manual) 79 H Band Neutrophils % 4 H Lymphocytes % (Manual) 6 L Reactive Lymphs % 1 H Monocytes % (Manual) 10 Platelet Estimate Normal Anisocytosis (manual) Slight Puncture Site pCO2 pO2 HCO3 ABG pH ABG Total CO2 ABG O2 Saturation ABG Base Excess ABG Hemoglobin ABG Carboxyhemoglobin POC ABG HHb (Measured) ABG Methemoglobin Tres Test A-a O2 Difference Respiratory Index Hgb O2 Saturation Vent Mode Mechanical Rate FiO2 Tidal Volume PEEP Sodium 183 H* Potassium 3.2 L Chloride 140 H Carbon Dioxide 29 Anion Gap 17 BUN 16 Creatinine 1.7 H Est GFR ( Amer) 47 Est GFR (Non-Af Amer) 39 POC Glucose (mg/dL) Random Glucose 167 H Serum Osmolality 367 H Calcium 11.3 H Phosphorus 1.3 L Magnesium 3.2 H Total Bilirubin 1.0 AST 95 H D ALT 12 L Alkaline Phosphatase 80 Total Protein 8.3 Albumin 4.3 Globulin 4.0 H Albumin/Globulin Ratio 1.1 04/11/18 04/11/18 04/11/18 11:21 17:07 17:43 WBC RBC Hgb Hct MCV MCH MCHC RDW Plt Count MPV Neut % (Auto) Lymph % (Auto) [place] % (Auto) Eos % (Auto) Baso % (Auto) Neut # (Auto) Lymph # (Auto) [place] # (Auto) Eos # (Auto) Baso # (Auto) Neutrophils % (Manual) Band Neutrophils % Lymphocytes % (Manual) Reactive Lymphs % Monocytes % (Manual) Platelet Estimate Anisocytosis (manual) Puncture Site pCO2 pO2 HCO3 ABG pH ABG Total CO2 ABG O2 Saturation ABG Base Excess ABG Hemoglobin ABG Carboxyhemoglobin POC ABG HHb (Measured) ABG Methemoglobin Tres Test A-a O2 Difference Respiratory Index Hgb O2 Saturation Vent Mode Mechanical Rate FiO2 Tidal Volume PEEP Sodium 170 H* Potassium 2.8 L Chloride 133 H Carbon Dioxide 24 Anion Gap 15 BUN 26 H Creatinine 1.9 H Est GFR ( Amer) 42 Est GFR (Non-Af Amer) 34 POC Glucose (mg/dL) 289 H 276 H Random Glucose 277 H Serum Osmolality Calcium 10.8 H Phosphorus Magnesium Total Bilirubin AST ALT Alkaline Phosphatase Total Protein Albumin Globulin Albumin/Globulin Ratio Attending/Attestation - Attestation I have personally seen and examined this patient.: Yes I have fully participated in the care of the patient.: Yes I have reviewed all pertinent clinical information: Yes Notes (Text): 04/11/18 18:01 patient seen and examined in the intensive care unit. On ventilatory support with no triggering of ventilator No response to any painful stimuli No corneal and gag reflexes No flow on brain flow study Started on DDAVP for diabetes insipidus and hyponatremia Continue D5W Possible terminal extubation Patient DNR/DNI
[2018-04-11 17:51] LABS: CALCIUM 10.8 mg/dl (8.6-10.4)
[2018-04-12] MEDS: Norepinephrine 8 MG in Dextrose 5% In Water 500 ML IV PRN (04:13)
[2018-04-12] MEDS: Piperacill/Tazo 3.375gm in Dex 3.375 GM/50 ML BAG IVPB SCH ×4 (04:18→21:54)
[2018-04-12 06:18] LABS: BASO % 0.2 % (0.0-2.0); EOS % 0.3 % (0.0-4.0); LYMPH # 1.5 K/uL (1.0-4.3); LYMPH % 12.8 % (20.0-40.0); MEAN CELL VOLUME 93.3 fL (80.0-94.0); MEAN CORPUSCULAR HEMOGLOBIN 31.5 pg (27.0-31.0); MEAN CORPUSCULAR HGB CONC 33.8 g/dL (33.0-37.0); MEAN PLATELET VOLUME 9.4 fL (7.2-11.7); MONO # 0.6 K/uL (0.0-0.8); MONO % 4.9 % (0.0-10.0); NEUT # 9.7 K/uL (1.8-7.0); NEUT % 81.8 % (50.0-75.0); RBC 3.49 Mil/uL (4.40-5.90); WHITE BLOOD COUNT 11.9 K/uL (4.8-10.8)
[2018-04-12 06:51] LABS: ALB/GLOB RATIO 0.9 (1.0-2.1); ALT/SGPT 22 U/L (21-72); AST/SGOT 57 U/L (17-59); BLOOD UREA NITROGEN 21 mg/dL (9-20); CALCIUM 10.7 mg/dl (8.6-10.4); GFR AFRICAN-AMERICAN > 60; GFR NON-AFRICAN AMERICAN 58
[2018-04-12 06:52] LABS: PROTHROMBIN TIME 14.3 SECONDS (9.7-12.2)
[2018-04-12 07:06] LABS: INR 1.3
--- NOTE | 2018-04-12 10:08 | PN ---
DATE: 04/12/2018 TIME OF EVALUATION: 7:20 a.m. NEUROLOGIC PROBLEM: Posttraumatic three compartmental bleed, status post surgical evacuation of subdural hematoma on his right side, status post craniotomy day #4. PHYSICAL EXAMINATION: VITAL SIGNS: Blood pressure 130/76, mean arterial pressure of 98, respiratory rate of 40 with pulse rate of 44. The patient is under pressors. The patient remains the same as previous exam yesterday. Deeply comatose. Eyes are closed. Pupil fixed, 5.5 mm. Nonreactive to light. Not oculocephalic. No gag on manipulating the endotracheal tube. 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 Overall prognosis is dismal. The patient is under supportive care and electrolytes at present. Continue the supportive care at present. Sina Scruggs MD
[2018-04-12] MEDS ORDERED: Potassium Phosphate 15 MMOLE in Sodium Chloride 0.9% 250 ML IVPB ONE (13:00)
--- NOTE | 2018-04-12 13:36 | CP.CCUPN ---
<Jo Sandoval - Last Filed: 04/12/18 13:29> CCU Subjective - Physician Review Subjective (Free Text): Patient seen and examined at bedside. On mechanical vent PRVC mode. CCU Objective - Vital Signs / Intake & Output Vital Signs (Last 4 hours): Vital Signs Pulse Resp BP Pulse Ox 04/12/18 13:04 45 L 19 112/62 04/12/18 12:04 45 L 10 L 122/65 100 04/12/18 11:04 45 L 19 127/74 100 04/12/18 10:04 44 L 19 123/72 100 Intake and Output (Last 8hrs): Intake & Output 04/11/18 04/12/18 04/12/18 22:59 06:59 14:59 Intake Total 2665.5 2023 1475 Output Total 265 425 295 Balance 2400.5 1598 1180 Intake: IV 438 88 140 Intake, IV Amount 2227.5 1935 1335 Right Distal Port Femoral 292.5 185 85 Right Medial Port Femoral 185.0 100 100 Right Proximal Port 1600 1600 1000 Femoral right proximal port y 150 50 150 Output: Urine 265 425 295 Urethral (Jimenez) 265 425 295 - Physical Exam Head: Positive for: Normocephalic Pupils: Positive for: Non-Reactive Extroacular Muscles: Negative for: EOMI Conjunctiva: Positive for: Normal Mouth: Positive for: Moist Mucous Membranes Pharnyx: Positive for: Normal Nose (External): Positive for: Atraumatic Nose (Internal): Positive for: Normal Inspection Neck: Positive for: Normal Range of Motion Respiratory/Chest: Positive for: Clear to Auscultation Cardiovascular: Positive for: Regular Rate and Rhythm, Normal S1, S2 Abdomen: Negative for: Tenderness Back: Positive for: GCS, CN, SP Upper Extremity: Positive for: Normal Inspection. Negative for: Cyanosis, Edema Lower Extremity: Positive for: Normal Inspection. Negative for: Edema Neurological: Negative for: GCS=15 (GCS-3T) Skin: Positive for: Dry, Normal Color, Cold. Negative for: Rashes Psychiatric: Negative for: Alert, Oriented x 3 - Medications Active Medications: Active Medications Generic Name Dose Route Start Last Admin Trade Name Freq PRN Reason Stop Dose Admin Mannitol 250 mls @ 0 mls/hr 04/09/18 01:45 Mannitol IV .Q0M CARIN UD Mannitol 250 mls @ 0 mls/hr 04/09/18 01:45 Mannitol IV .Q0M CARIN UD Desmopressin Acetate 2 mcg/ 50.5 mls @ 100 mls/hr 04/11/18 10:00 04/12/18 10: 23 Sodium Chloride IV 100 mls/hr BID CARIN Administration Dextrose 1,000 mls @ 200 mls/hr 04/11/18 09:45 04/12/18 08:30 Dextrose 5% In Water 1000 Ml IV 200 mls/hr .Q5H CARIN Administration Piperacillin Sod/Tazobactam Sod 3.375 gm in 50 mls @ 100 mls/hr 04/11/18 10: 30 04/12/18 10:23 Zosyn 3.375 Gm Iv Premix IVPB 100 mls/hr Q6H CARIN Administration Protocol Norepinephrine Bitartrate 8 mg 508 mls @ 15.24 mls/hr 04/11/18 11:00 12:00 / Dextrose IV 2.96 mcg/min .Q24H PRN 11.3 mls/hr TITRATE PER MD ORDER Titration Protocol 4 MCG/MIN Levetiracetam 500 mg/ Dextrose 105 mls @ 420 mls/hr 04/12/18 22:00 IVPB Q12H CARIN Potassium Phosphate 15 mmole/ 255 mls @ 42.5 mls/hr 04/12/18 13:00 04/12/18 13:20 Sodium Chloride IVPB 04/12/18 18:59 42.5 mls/hr ONCE ONE Administration Potassium Chloride 20 meq in 100 mls @ 50 mls/hr 04/12/18 11:31 04/12/18 12: 08 Potassium Chloride 20 Meq/100 Ml IVPB 04/12/18 13:30 50 mls/hr ONCE ONE Administration Ondansetron HCl 4 mg 04/08/18 23:37 Zofran Inj IVP Q6H PRN Nausea/Vomiting Pantoprazole Sodium 40 mg 04/09/18 10:00 04/12/18 10:22 Protonix Inj IVP 40 mg DAILY CARIN Administration - Patient Studies Lab Studies: Lab Studies 04/12/18 04/12/18 04/12/18 Range/Units 11:58 06:10 06:10 WBC (4.8-10.8) K/uL RBC (4.40-5.90) Mil/uL Hgb (12.0-18.0) g/dL Hct (35.0-51.0) % MCV (80.0-94.0) fL MCH (27.0-31.0) pg MCHC (33.0-37.0) g/dL RDW (11.5-14.5) % Plt Count (130-400) K/uL MPV (7.2-11.7) fL Neut % (Auto) (50.0-75.0) % Lymph % (Auto) (20.0-40.0) % [place] % (Auto) (0.0-10.0) % Eos % (Auto) (0.0-4.0) % Baso % (Auto) (0.0-2.0) % Neut # (Auto) (1.8-7.0) K/uL Lymph # (Auto) (1.0-4.3) K/uL [place] # (Auto) (0.0-0.8) K/uL Eos # (Auto) (0.0-0.7) K/uL Baso # (Auto) (0.0-0.2) K/uL PT 14.3 H (9.7-12.2) SECONDS INR 1.3 APTT 31 (21-34) SECONDS Sodium 162 H* (132-148) mmol/L Potassium 3.2 L (3.6-5.2) mmol/L Chloride 127 H (98-107) mmol/L Carbon Dioxide 25 (22-30) mmol/L Anion Gap 13 (10-20) BUN 21 H (9-20) mg/dL Creatinine 1.2 (0.8-1.5) mg/dL Est GFR ( Amer) > 60 Est GFR (Non-Af Amer) 58 POC Glucose (mg/dL) 223 H (65-110) mg/dL Random Glucose 216 H (75-110) mg/dL Calcium 10.7 H (8.6-10.4) mg/dl Phosphorus 1.9 L (2.5-4.5) mg/dL Magnesium 2.4 H (1.6-2.3) mg/dL Total Bilirubin 1.2 (0.2-1.3) mg/dL AST 57 (17-59) U/L ALT 22 (21-72) U/L Alkaline Phosphatase 61 (38-126) U/L Total Protein 6.1 L (6.3-8.3) g/dL Albumin 3.0 L D (3.5-5.0) g/dL Globulin 3.1 (2.2-3.9) gm/dL Albumin/Globulin Ratio 0.9 L (1.0-2.1) 04/12/18 04/12/18 04/11/18 Range/Units 06:10 05:59 17:43 WBC 11.9 H (4.8-10.8) K/uL RBC 3.49 L (4.40-5.90) Mil/uL Hgb 11.0 L D (12.0-18.0) g/dL Hct 32.6 L (35.0-51.0) % MCV 93.3 (80.0-94.0) fL MCH 31.5 H (27.0-31.0) pg MCHC 33.8 (33.0-37.0) g/dL RDW 15.0 H (11.5-14.5) % Plt Count 126 L D (130-400) K/uL MPV 9.4 (7.2-11.7) fL Neut % (Auto) 81.8 H (50.0-75.0) % Lymph % (Auto) 12.8 L (20.0-40.0) % [place] % (Auto) 4.9 (0.0-10.0) % Eos % (Auto) 0.3 (0.0-4.0) % Baso % (Auto) 0.2 (0.0-2.0) % Neut # (Auto) 9.7 H (1.8-7.0) K/uL Lymph # (Auto) 1.5 (1.0-4.3) K/uL [place] # (Auto) 0.6 (0.0-0.8) K/uL Eos # (Auto) 0.0 (0.0-0.7) K/uL Baso # (Auto) 0.0 (0.0-0.2) K/uL PT (9.7-12.2) SECONDS INR APTT (21-34) SECONDS Sodium (132-148) mmol/L Potassium (3.6-5.2) mmol/L Chloride (98-107) mmol/L Carbon Dioxide (22-30) mmol/L Anion Gap (10-20) BUN (9-20) mg/dL Creatinine (0.8-1.5) mg/dL Est GFR ( Amer) Est GFR (Non-Af Amer) POC Glucose (mg/dL) 185 H 276 H (65-110) mg/dL Random Glucose (75-110) mg/dL Calcium (8.6-10.4) mg/dl Phosphorus (2.5-4.5) mg/dL Magnesium (1.6-2.3) mg/dL Total Bilirubin (0.2-1.3) mg/dL AST (17-59) U/L ALT (21-72) U/L Alkaline Phosphatase (38-126) U/L Total Protein (6.3-8.3) g/dL Albumin (3.5-5.0) g/dL Globulin (2.2-3.9) gm/dL Albumin/Globulin Ratio (1.0-2.1) 04/11/18 Range/Units 17:07 WBC (4.8-10.8) K/uL RBC (4.40-5.90) Mil/uL Hgb (12.0-18.0) g/dL Hct (35.0-51.0) % MCV (80.0-94.0) fL MCH (27.0-31.0) pg MCHC (33.0-37.0) g/dL RDW (11.5-14.5) % Plt Count (130-400) K/uL MPV (7.2-11.7) fL Neut % (Auto) (50.0-75.0) % Lymph % (Auto) (20.0-40.0) % [place] % (Auto) (0.0-10.0) % Eos % (Auto) (0.0-4.0) % Baso % (Auto) (0.0-2.0) % Neut # (Auto) (1.8-7.0) K/uL Lymph # (Auto) (1.0-4.3) K/uL [place] # (Auto) (0.0-0.8) K/uL Eos # (Auto) (0.0-0.7) K/uL Baso # (Auto) (0.0-0.2) K/uL PT (9.7-12.2) SECONDS INR APTT (21-34) SECONDS Sodium 170 H* (132-148) mmol/L Potassium 2.8 L (3.6-5.2) mmol/L Chloride 133 H (98-107) mmol/L Carbon Dioxide 24 (22-30) mmol/L Anion Gap 15 (10-20) BUN 26 H (9-20) mg/dL Creatinine 1.9 H (0.8-1.5) mg/dL Est GFR ( Amer) 42 Est GFR (Non-Af Amer) 34 POC Glucose (mg/dL) (65-110) mg/dL Random Glucose 277 H (75-110) mg/dL Calcium 10.8 H (8.6-10.4) mg/dl Phosphorus (2.5-4.5) mg/dL Magnesium (1.6-2.3) mg/dL Total Bilirubin (0.2-1.3) mg/dL AST (17-59) U/L ALT (21-72) U/L Alkaline Phosphatase (38-126) U/L Total Protein (6.3-8.3) g/dL Albumin (3.5-5.0) g/dL Globulin (2.2-3.9) gm/dL Albumin/Globulin Ratio (1.0-2.1) Laboratory Results - last 24 hr 04/11/18 04/11/18 04/12/18 17:07 17:43 05:59 WBC RBC Hgb Hct MCV MCH MCHC RDW Plt Count MPV Neut % (Auto) Lymph % (Auto) [place] % (Auto) Eos % (Auto) Baso % (Auto) Neut # (Auto) Lymph # (Auto) [place] # (Auto) Eos # (Auto) Baso # (Auto) PT INR APTT Sodium 170 H* Potassium 2.8 L Chloride 133 H Carbon Dioxide 24 Anion Gap 15 BUN 26 H Creatinine 1.9 H Est GFR ( Amer) 42 Est GFR (Non-Af Amer) 34 POC Glucose (mg/dL) 276 H 185 H Random Glucose 277 H Calcium 10.8 H Phosphorus Magnesium Total Bilirubin AST ALT Alkaline Phosphatase Total Protein Albumin Globulin Albumin/Globulin Ratio 04/12/18 04/12/18 04/12/18 06:10 06:10 06:10 WBC 11.9 H RBC 3.49 L Hgb 11.0 L D Hct 32.6 L MCV 93.3 MCH 31.5 H MCHC 33.8 RDW 15.0 H Plt Count 126 L D MPV 9.4 Neut % (Auto) 81.8 H Lymph % (Auto) 12.8 L [place] % (Auto) 4.9 Eos % (Auto) 0.3 Baso % (Auto) 0.2 Neut # (Auto) 9.7 H Lymph # (Auto) 1.5 [place] # (Auto) 0.6 Eos # (Auto) 0.0 Baso # (Auto) 0.0 PT 14.3 H INR 1.3 APTT 31 Sodium 162 H* Potassium 3.2 L Chloride 127 H Carbon Dioxide 25 Anion Gap 13 BUN 21 H Creatinine 1.2 Est GFR ( Amer) > 60 Est GFR (Non-Af Amer) 58 POC Glucose (mg/dL) Random Glucose 216 H Calcium 10.7 H Phosphorus 1.9 L Magnesium 2.4 H Total Bilirubin 1.2 AST 57 ALT 22 Alkaline Phosphatase 61 Total Protein 6.1 L Albumin 3.0 L D Globulin 3.1 Albumin/Globulin Ratio 0.9 L 04/12/18 11:58 WBC RBC Hgb Hct MCV MCH MCHC RDW Plt Count MPV Neut % (Auto) Lymph % (Auto) [place] % (Auto) Eos % (Auto) Baso % (Auto) Neut # (Auto) Lymph # (Auto) [place] # (Auto) Eos # (Auto) Baso # (Auto) PT INR APTT Sodium Potassium Chloride Carbon Dioxide Anion Gap BUN Creatinine Est GFR ( Amer) Est GFR (Non-Af Amer) POC Glucose (mg/dL) 223 H Random Glucose Calcium Phosphorus Magnesium Total Bilirubin AST ALT Alkaline Phosphatase Total Protein Albumin Globulin Albumin/Globulin Ratio Fingerstick Blood Sugar Results: 185 Review of Systems - Review of Systems Systems not reviewed;Unavailable: Intubated Assessment/Plan - Assessment and Plan (Free Text) Assessment: Patient is a 78-year-old male with a history of diabetes hypertension and high cholesterol admitted with the subdural, intracerebral bleeding. Underwent surgical intervention, craniotomy. Postoperatively patient was doing okay, but since yesterday known family history of having increasing lethargic.Currently patient is very poorly responding. No gag reflex noted, he is not having any eye contact, no reflexes noted. Plan: Neuro: GCS: 3T Sedation: None A: Subdural hematoma, s/p Right Central craniotomy evacuation of subdural hematoma. Brain Flow Nuclear Medicine (04/10/18): Pattern is compatible with brain in the proper clinical setting Head CT (04/10/18): 1.Significant compression on the brainstem results in bilateral [employer] and diffuse brainstem infarction also affecting bilateral cerebral peduncles. New limited hemorrhage is seen affecting phil moderately and left cerebral peduncle minimally and likely the right cerebral peduncle as well. Limited acute subacute hemorrhage is seen involving the inferior margin of the vermis and is likely present in the 4th ventricle as well. Left convexity subdural hematoma stable though rightward midline shift is stable at 8 mm toward the right. 2. Although corticomedullary differentiation is adequate at the upper mid cerebrum, lower cerebral corticomedullary differentiation is poor and global ischemia is suggested with infarction suggested early at the inferior frontotemporal and parietal distribution. Cortical lucency is minimal at medial bilateral frontal lobes superiorly, indicating acute to subacute infarctions. Bilateral thalamic and left groin right basal ganglia acute to subacute infarcts are identified. 3. Right-sided op postoperative scalp changes are slightly diminished. 4. Inversion of cerebral versus cerebellar density which can be seen in cases of brain . Please see separate cerebral blood flow nuclear medicine exam also performed 04/10/2018. Palliative Care Consulted DNR/DNI form Signed this AM Neurology/NeuroSurgery on Consult Cont. Mannitol IV UD Continue Keppra 500mg IV Q12H Pulm A: COPD (per CXR) PRVC mode: 19Rate, 40%Fi02, 500TV, 5 PEEP AB.45/34/129/25 CXR (04/11): Lines and tubes in stable position. Hyperinflation suggestive for COPD and or emphysematous changes. Biapical pleural thickening with upper lobe granulomatous changes. Diffuse increased interstitial lung markings. Right hilar prominence. Mild cardiomegaly with calcification at the aortic knob. Degenerative changes in the spine with paravertebral osteophytes. Cardiology A: Hypotension, Bradycardia Continue Levophed Drip Renal: A: Hypernatremia, Hypokalemia, Hypophosphatemia d50 in Water Bolus Given Started D50 in Water at 200mls/hr Ddavp 2mcg IVP Given Repeat BMP at 16:30 - F/U Low Electrolytes Replaced. ID A: Leukocytosis (Improving), Hypothermia MRSA Negative Urine Cultures NEGATIVE Patient on [employer] [place]. Dispo: Palliative Care Consulted. [place] standards to be followed and allow for natural . Pastoral Care for spiritual support, DNR/DNI Patient discussed with Attending Jo Sandoval, PGY-1 <Rk Kaplan S - Last Filed: 04/12/18 15:52> CCU Objective - Vital Signs / Intake & Output Vital Signs (Last 4 hours): Vital Signs Pulse Resp BP Pulse Ox 04/12/18 15:04 55 L 19 110/58 L 04/12/18 14:04 51 L 19 105/52 L 04/12/18 13:04 45 L 19 112/62 04/12/18 12:04 45 L 10 L 122/65 100 Intake and Output (Last 8hrs): Intake & Output 04/12/18 04/12/18 04/12/18 06:59 14:59 22:59 Intake Total 2022 2297.7 250.0 Output Total 425 380 75 Balance 1598 1917.7 175.0 Intake: IV 88 151 Intake, IV Amount 5 2146.7 250.0 Right Distal Port Femoral 185 111.7 7.5 Right Medial Port Femoral 100 285.0 42.5 Right Proximal Port 1600 1600 200 Femoral right proximal port y 50 150 Output: Urine 425 380 75 Urethral (Jimenez) 425 380 75 - Medications Active Medications: Active Medications Generic Name Dose Route Start Last Admin Trade Name Freq PRN Reason Stop Dose Admin Mannitol 250 mls @ 0 mls/hr 04/09/18 01:45 Mannitol IV .Q0M CARIN UD Mannitol 250 mls @ 0 mls/hr 04/09/18 01:45 Mannitol IV .Q0M CARIN UD Desmopressin Acetate 2 mcg/ 50.5 mls @ 100 mls/hr 04/11/18 10:00 04/12/18 10: 23 Sodium Chloride IV 100 mls/hr BID CARIN Administration Piperacillin Sod/Tazobactam Sod 3.375 gm in 50 mls @ 100 mls/hr 04/11/18 10: 30 04/12/18 10:23 Zosyn 3.375 Gm Iv Premix IVPB 100 mls/hr Q6H CARIN Administration Protocol Norepinephrine Bitartrate 8 mg 508 mls @ 15.24 mls/hr 04/11/18 11:00 13:00 / Dextrose IV 1.96 mcg/min .Q24H PRN 7.5 mls/hr TITRATE PER MD ORDER Titration Protocol 4 MCG/MIN Levetiracetam 500 mg/ Dextrose 105 mls @ 420 mls/hr 04/12/18 22:00 IVPB Q12H CARIN Potassium Phosphate 15 mmole/ 255 mls @ 42.5 mls/hr 04/12/18 13:00 04/12/18 13:20 Sodium Chloride IVPB 04/12/18 18:59 42.5 mls/hr ONCE ONE Administration Dextrose 500 mls @ 100 mls/hr 04/12/18 15:15 04/12/18 14:00 Dextrose 5% In Water IV 04/12/18 20:14 100 mls/hr .Q5H CARIN Administration Ondansetron HCl 4 mg 04/08/18 23:37 Zofran Inj IVP Q6H PRN Nausea/Vomiting Pantoprazole Sodium 40 mg 04/09/18 10:00 04/12/18 10:22 Protonix Inj IVP 40 mg DAILY CARIN Administration - Patient Studies Lab Studies: Lab Studies 04/12/18 04/12/18 04/12/18 Range/Units 11:58 06:10 06:10 WBC (4.8-10.8) K/uL RBC (4.40-5.90) Mil/uL Hgb (12.0-18.0) g/dL Hct (35.0-51.0) % MCV (80.0-94.0) fL MCH (27.0-31.0) pg MCHC (33.0-37.0) g/dL RDW (11.5-14.5) % Plt Count (130-400) K/uL MPV (7.2-11.7) fL Neut % (Auto) (50.0-75.0) % Lymph % (Auto) (20.0-40.0) % [place] % (Auto) (0.0-10.0) % Eos % (Auto) (0.0-4.0) % Baso % (Auto) (0.0-2.0) % Neut # (Auto) (1.8-7.0) K/uL Lymph # (Auto) (1.0-4.3) K/uL [place] # (Auto) (0.0-0.8) K/uL Eos # (Auto) (0.0-0.7) K/uL Baso # (Auto) (0.0-0.2) K/uL PT 14.3 H (9.7-12.2) SECONDS INR 1.3 APTT 31 (21-34) SECONDS Sodium 162 H* (132-148) mmol/L Potassium 3.2 L (3.6-5.2) mmol/L Chloride 127 H (98-107) mmol/L Carbon Dioxide 25 (22-30) mmol/L Anion Gap 13 (10-20) BUN 21 H (9-20) mg/dL Creatinine 1.2 (0.8-1.5) mg/dL Est GFR ( Amer) > 60 Est GFR (Non-Af Amer) 58 POC Glucose (mg/dL) 223 H (65-110) mg/dL Random Glucose 216 H (75-110) mg/dL Calcium 10.7 H (8.6-10.4) mg/dl Phosphorus 1.9 L (2.5-4.5) mg/dL Magnesium 2.4 H (1.6-2.3) mg/dL Total Bilirubin 1.2 (0.2-1.3) mg/dL AST 57 (17-59) U/L ALT 22 (21-72) U/L Alkaline Phosphatase 61 (38-126) U/L Total Protein 6.1 L (6.3-8.3) g/dL Albumin 3.0 L D (3.5-5.0) g/dL Globulin 3.1 (2.2-3.9) gm/dL Albumin/Globulin Ratio 0.9 L (1.0-2.1) 04/12/18 04/12/18 04/11/18 Range/Units 06:10 05:59 17:43 WBC 11.9 H (4.8-10.8) K/uL RBC 3.49 L (4.40-5.90) Mil/uL Hgb 11.0 L D (12.0-18.0) g/dL Hct 32.6 L (35.0-51.0) % MCV 93.3 (80.0-94.0) fL MCH 31.5 H (27.0-31.0) pg MCHC 33.8 (33.0-37.0) g/dL RDW 15.0 H (11.5-14.5) % Plt Count 126 L D (130-400) K/uL MPV 9.4 (7.2-11.7) fL Neut % (Auto) 81.8 H (50.0-75.0) % Lymph % (Auto) 12.8 L (20.0-40.0) % [place] % (Auto) 4.9 (0.0-10.0) % Eos % (Auto) 0.3 (0.0-4.0) % Baso % (Auto) 0.2 (0.0-2.0) % Neut # (Auto) 9.7 H (1.8-7.0) K/uL Lymph # (Auto) 1.5 (1.0-4.3) K/uL [place] # (Auto) 0.6 (0.0-0.8) K/uL Eos # (Auto) 0.0 (0.0-0.7) K/uL Baso # (Auto) 0.0 (0.0-0.2) K/uL PT (9.7-12.2) SECONDS INR APTT (21-34) SECONDS Sodium (132-148) mmol/L Potassium (3.6-5.2) mmol/L Chloride (98-107) mmol/L Carbon Dioxide (22-30) mmol/L Anion Gap (10-20) BUN (9-20) mg/dL Creatinine (0.8-1.5) mg/dL Est GFR ( Amer) Est GFR (Non-Af Amer) POC Glucose (mg/dL) 185 H 276 H (65-110) mg/dL Random Glucose (75-110) mg/dL Calcium (8.6-10.4) mg/dl Phosphorus (2.5-4.5) mg/dL Magnesium (1.6-2.3) mg/dL Total Bilirubin (0.2-1.3) mg/dL AST (17-59) U/L ALT (21-72) U/L Alkaline Phosphatase (38-126) U/L Total Protein (6.3-8.3) g/dL Albumin (3.5-5.0) g/dL Globulin (2.2-3.9) gm/dL Albumin/Globulin Ratio (1.0-2.1) / Range/Units 17:07 WBC (4.8-10.8) K/uL RBC (4.40-5.90) Mil/uL Hgb (12.0-18.0) g/dL Hct (35.0-51.0) % MCV (80.0-94.0) fL MCH (27.0-31.0) pg MCHC (33.0-37.0) g/dL RDW (11.5-14.5) % Plt Count (130-400) K/uL MPV (7.2-11.7) fL Neut % (Auto) (50.0-75.0) % Lymph % (Auto) (20.0-40.0) % [place] % (Auto) (0.0-10.0) % Eos % (Auto) (0.0-4.0) % Baso % (Auto) (0.0-2.0) % Neut # (Auto) (1.8-7.0) K/uL Lymph # (Auto) (1.0-4.3) K/uL [place] # (Auto) (0.0-0.8) K/uL Eos # (Auto) (0.0-0.7) K/uL Baso # (Auto) (0.0-0.2) K/uL PT (9.7-12.2) SECONDS INR APTT (21-34) SECONDS Sodium 170 H* (132-148) mmol/L Potassium 2.8 L (3.6-5.2) mmol/L Chloride 133 H (98-107) mmol/L Carbon Dioxide 24 (22-30) mmol/L Anion Gap 15 (10-20) BUN 26 H (9-20) mg/dL Creatinine 1.9 H (0.8-1.5) mg/dL Est GFR ( Amer) 42 Est GFR (Non-Af Amer) 34 POC Glucose (mg/dL) (65-110) mg/dL Random Glucose 277 H (75-110) mg/dL Calcium 10.8 H (8.6-10.4) mg/dl Phosphorus (2.5-4.5) mg/dL Magnesium (1.6-2.3) mg/dL Total Bilirubin (0.2-1.3) mg/dL AST (17-59) U/L ALT (21-72) U/L Alkaline Phosphatase (38-126) U/L Total Protein (6.3-8.3) g/dL Albumin (3.5-5.0) g/dL Globulin (2.2-3.9) gm/dL Albumin/Globulin Ratio (1.0-2.1) Laboratory Results - last 24 hr 04/11/18 04/11/18 04/12/18 17:07 17:43 05:59 WBC RBC Hgb Hct MCV MCH MCHC RDW Plt Count MPV Neut % (Auto) Lymph % (Auto) [place] % (Auto) Eos % (Auto) Baso % (Auto) Neut # (Auto) Lymph # (Auto) [place] # (Auto) Eos # (Auto) Baso # (Auto) PT INR APTT Sodium 170 H* Potassium 2.8 L Chloride 133 H Carbon Dioxide 24 Anion Gap 15 BUN 26 H Creatinine 1.9 H Est GFR ( Amer) 42 Est GFR (Non-Af Amer) 34 POC Glucose (mg/dL) 276 H 185 H Random Glucose 277 H Calcium 10.8 H Phosphorus Magnesium Total Bilirubin AST ALT Alkaline Phosphatase Total Protein Albumin Globulin Albumin/Globulin Ratio 04/12/18 04/12/18 04/12/18 06:10 06:10 06:10 WBC 11.9 H RBC 3.49 L Hgb 11.0 L D Hct 32.6 L MCV 93.3 MCH 31.5 H MCHC 33.8 RDW 15.0 H Plt Count 126 L D MPV 9.4 Neut % (Auto) 81.8 H Lymph % (Auto) 12.8 L [place] % (Auto) 4.9 Eos % (Auto) 0.3 Baso % (Auto) 0.2 Neut # (Auto) 9.7 H Lymph # (Auto) 1.5 [place] # (Auto) 0.6 Eos # (Auto) 0.0 Baso # (Auto) 0.0 PT 14.3 H INR 1.3 APTT 31 Sodium 162 H* Potassium 3.2 L Chloride 127 H Carbon Dioxide 25 Anion Gap 13 BUN 21 H Creatinine 1.2 Est GFR ( Amer) > 60 Est GFR (Non-Af Amer) 58 POC Glucose (mg/dL) Random Glucose 216 H Calcium 10.7 H Phosphorus 1.9 L Magnesium 2.4 H Total Bilirubin 1.2 AST 57 ALT 22 Alkaline Phosphatase 61 Total Protein 6.1 L Albumin 3.0 L D Globulin 3.1 Albumin/Globulin Ratio 0.9 L 04/12/18 11:58 WBC RBC Hgb Hct MCV MCH MCHC RDW Plt Count MPV Neut % (Auto) Lymph % (Auto) [place] % (Auto) Eos % (Auto) Baso % (Auto) Neut # (Auto) Lymph # (Auto) [place] # (Auto) Eos # (Auto) Baso # (Auto) PT INR APTT Sodium Potassium Chloride Carbon Dioxide Anion Gap BUN Creatinine Est GFR ( Amer) Est GFR (Non-Af Amer) POC Glucose (mg/dL) 223 H Random Glucose Calcium Phosphorus Magnesium Total Bilirubin AST ALT Alkaline Phosphatase Total Protein Albumin Globulin Albumin/Globulin Ratio Attending/Attestation - Attestation I have personally seen and examined this patient.: Yes I have fully participated in the care of the patient.: Yes I have reviewed all pertinent clinical information: Yes Notes (Text): 04/12/18 15:50 patient seen and examined in the intensive care unit. No change in mental status No gag or corneal reflexes No response to painful stimuli Family requesting to hold off Terminal extubation for family member coming from [place] hyponatremia improving continue DDAVP
--- NOTE | 2018-04-12 19:14 | CP.PCM.PN ---
Subjective - Date & Time of Evaluation Date of Evaluation: 04/12/18 Time of Evaluation: 13:40 - Subjective Subjective: clinically same Objective - Vital Signs/Intake and Output Vital Signs (last 24 hours): Temp Pulse Resp BP Pulse Ox 97.1 F L 58 L 0 L 102/65 100 04/12/18 16:00 04/12/18 18:04 04/12/18 18:04 04/12/18 18:04 04/12/18 16:00 Intake and Output: 04/12/18 04/13/18 18:59 06:59 Intake Total 3005.2 Output Total 580 Balance 2425.2 - Medications Medications: Current Medications Mannitol (Mannitol) 250 mls @ 0 mls/hr IV .Q0M CARIN PRN Reason: UD Mannitol (Mannitol) 250 mls @ 0 mls/hr IV .Q0M CARIN PRN Reason: UD Desmopressin Acetate 2 mcg/ (Sodium Chloride) 50.5 mls @ 100 mls/hr IV BID CARIN Last Admin: 04/12/18 17:57 Dose: 100 mls/hr Piperacillin Sod/Tazobactam Sod (Zosyn 3.375 Gm Iv Premix) 3.375 gm in 50 mls @ 100 mls/hr IVPB Q6H CARIN PRN Reason: Protocol Last Admin: 04/12/18 17:21 Dose: 100 mls/hr Norepinephrine Bitartrate 8 mg (/ Dextrose) 508 mls @ 15.24 mls/hr IV .Q24H PRN ; Protocol; 4 MCG/MIN PRN Reason: TITRATE PER MD ORDER Last Titration: 04/12/18 14:00 Dose: 3.93 mcg/min, 15 mls/hr Levetiracetam 500 mg/ Dextrose 105 mls @ 420 mls/hr IVPB Q12H CARIN Dextrose (Dextrose 5% In Water) 500 mls @ 100 mls/hr IV .Q5H CARIN Stop: 04/12/18 20:14 Last Admin: 04/12/18 17:15 Dose: 100 mls/hr Ondansetron HCl (Zofran Inj) 4 mg IVP Q6H PRN PRN Reason: Nausea/Vomiting Pantoprazole Sodium (Protonix Inj) 40 mg IVP DAILY [facility] Last Admin: 04/12/18 10:22 Dose: 40 mg - Labs Labs: 04/12/18 06:10 04/12/18 06:10 PT 14.3 SECONDS (9.7-12.2) H 04/12/18 06:10 INR 1.3 04/12/18 06:10 APTT 31 SECONDS (21-34) 04/12/18 06:10 - Constitutional Appears: Well - Head Exam Head Exam: ATRAUMATIC, NORMAL INSPECTION, NORMOCEPHALIC - Eye Exam Eye Exam: EOMI, Normal appearance, PERRL Pupil Exam: NORMAL ACCOMODATION, PERRL - ENT Exam ENT Exam: Mucous Membranes Moist, Normal Exam - Neck Exam Neck Exam: Full ROM, Normal Inspection. absent: Lymphadenopathy - Respiratory Exam Respiratory Exam: Decreased Breath Sounds - Cardiovascular Exam Cardiovascular Exam: REGULAR RHYTHM, +S1, +S2 - GI/Abdominal Exam GI & Abdominal Exam: Soft, Diminished Bowel Sounds - Rectal Exam Rectal Exam: Deferred Assessment and Plan (1) Coma Status: Acute (2) Subarachnoidal hemorrhage Status: Acute (3) Subdural hematoma, post-traumatic Status: Acute (4) H/O diverticulitis of colon Status: Acute (5) Hemorrhoids Status: Acute (6) Hyperlipidemia Status: Acute (7) Hypertension Status: Acute (8) Prophylactic measure Status: Acute (9) Rectal bleeding Status: Acute
[2018-04-13] MEDS: Piperacill/Tazo 3.375gm in Dex 3.375 GM/50 ML BAG IVPB SCH ×4 (04:31→21:32)
[2018-04-13 06:08] LABS: BASO % 0.2 % (0.0-2.0); EOS # 0.2 K/uL (0.0-0.7); EOS % 1.7 % (0.0-4.0); HEMOGLOBIN 10.6 g/dL (12.0-18.0); LYMPH # 1.1 K/uL (1.0-4.3); LYMPH % 10.4 % (20.0-40.0); MEAN CELL VOLUME 92.7 fL (80.0-94.0); MEAN CORPUSCULAR HEMOGLOBIN 31.1 pg (27.0-31.0); MEAN CORPUSCULAR HGB CONC 33.5 g/dL (33.0-37.0); MEAN PLATELET VOLUME 9.6 fL (7.2-11.7); MONO # 0.5 K/uL (0.0-0.8); MONO % 4.8 % (0.0-10.0); NEUT # 8.6 K/uL (1.8-7.0); NEUT % 82.9 % (50.0-75.0); RBC 3.41 Mil/uL (4.40-5.90); RED CELL DISTRIBUTION WIDTH 14.7 % (11.5-14.5); WHITE BLOOD COUNT 10.3 K/uL (4.8-10.8)
[2018-04-13 06:32] LABS: ALB/GLOB RATIO 0.9 (1.0-2.1); ALBUMIN 2.8 g/dL (3.5-5.0); ALT/SGPT 20 U/L (21-72); AST/SGOT 40 U/L (17-59); BLOOD UREA NITROGEN 14 mg/dL (9-20); CALCIUM 10.3 mg/dl (8.6-10.4); GFR AFRICAN-AMERICAN > 60; GFR NON-AFRICAN AMERICAN > 60
--- NOTE | 2018-04-13 12:30 | PN ---
DATE: 04/13/2018 TIME OF EVALUATION: 7:10 a.m. NEUROLOGIC PROBLEM: Posttraumatic three-compartmental bleed with coma and respiratory failure. PHYSICAL EXAMINATION: VITAL SIGNS: Blood pressure on pressors 117/67, mean arterial pressure of 94, respiratory rate of 19 on vent, pulse rate 59. NEUROLOGIC: The patient's examination which is unchanged. Deeply comatosed. Eyes are closed. Pupil is fixed. No oculocephalic response. Flaccid, quadriplegia, plantars are mute. Overall prognosis is very poor. The patient's family members including his son aware of his critical illness. His further management is depending on his 's . The patient's condition has been discussed with registered nurse at the bedside. Sina Scruggs MD
--- NOTE | 2018-04-13 12:36 | CP.CCUPN ---
<Jo Sandoval - Last Filed: 04/13/18 12:32> CCU Subjective - Physician Review Subjective (Free Text): Patient seen and examined at bedside. On mechanical vent PRVC mode. CCU Objective - Vital Signs / Intake & Output Vital Signs (Last 4 hours): Vital Signs Temp Pulse Resp BP Pulse Ox 04/13/18 12:00 97.6 F 52 L 10 L 100 04/13/18 11:04 55 L 19 121/78 04/13/18 11:00 55 L 19 100 04/13/18 10:05 56 L 19 140/78 100 04/13/18 10:00 56 L 19 100 04/13/18 09:04 57 L 0 L 116/71 100 04/13/18 09:00 57 L 0 L 100 Intake and Output (Last 8hrs): Intake & Output 04/12/18 04/13/18 04/13/18 22:59 06:59 14:59 Intake Total 1396.0 978 928 Output Total 350 575 240 Balance 1046.0 403 688 Intake: IV 39 54 Intake, IV Amount 1357.0 924 898 Right Distal Port Femoral 94.5 74 48 Right Medial Port Femoral 212.5 250 Right Proximal Port 900 800 600 Femoral right proximal port y 150 50 Oral 30 Output: Urine 350 575 240 Urethral (Jimenez) 350 575 240 Other: # Bowel Movements 0 - Physical Exam Head: Positive for: Normocephalic Pupils: Positive for: Non-Reactive Extroacular Muscles: Negative for: EOMI Conjunctiva: Positive for: Normal Mouth: Positive for: Moist Mucous Membranes Pharnyx: Positive for: Normal Nose (External): Positive for: Atraumatic Nose (Internal): Positive for: Normal Inspection Neck: Positive for: Normal Range of Motion Respiratory/Chest: Positive for: Clear to Auscultation Cardiovascular: Positive for: Regular Rate and Rhythm, Normal S1, S2 Abdomen: Negative for: Tenderness Back: Positive for: GCS, CN, SP Upper Extremity: Positive for: Normal Inspection. Negative for: Cyanosis, Edema Lower Extremity: Positive for: Normal Inspection. Negative for: Edema Neurological: Negative for: GCS=15 (GCS-3T) Skin: Positive for: Dry, Normal Color, Cold. Negative for: Rashes Psychiatric: Negative for: Alert, Oriented x 3 - Medications Active Medications: Active Medications Generic Name Dose Route Start Last Admin Trade Name Freq PRN Reason Stop Dose Admin Mannitol 250 mls @ 0 mls/hr 04/09/18 01:45 Mannitol IV .Q0M CARIN UD Mannitol 250 mls @ 0 mls/hr 04/09/18 01:45 Mannitol IV .Q0M CARIN UD Desmopressin Acetate 2 mcg/ 50.5 mls @ 100 mls/hr 04/11/18 10:00 04/13/18 09: 38 Sodium Chloride IV 100 mls/hr BID CARIN Administration Piperacillin Sod/Tazobactam Sod 3.375 gm in 50 mls @ 100 mls/hr 04/11/18 10: 30 04/13/18 09:37 Zosyn 3.375 Gm Iv Premix IVPB 100 mls/hr Q6H CARIN Administration Protocol Norepinephrine Bitartrate 8 mg 508 mls @ 15.24 mls/hr 04/11/18 11:00 03:19 / Dextrose IV 2.09 mcg/min .Q24H PRN 8 mls/hr TITRATE PER MD ORDER Titration Protocol 4 MCG/MIN Levetiracetam 500 mg/ Dextrose 105 mls @ 420 mls/hr 04/12/18 22:00 04/13/18 09:38 IVPB 420 mls/hr Q12H CARIN Administration Dextrose 1,000 mls @ 100 mls/hr 04/12/18 22:15 04/13/18 07:47 Dextrose 5% In Water 1000 Ml IV 100 mls/hr .Q10H CARIN Administration Ondansetron HCl 4 mg 04/08/18 23:37 Zofran Inj IVP Q6H PRN Nausea/Vomiting Pantoprazole Sodium 40 mg 04/09/18 10:00 04/13/18 09:37 Protonix Inj IVP 40 mg DAILY CARIN Administration - Patient Studies Lab Studies: Lab Studies 04/13/18 04/13/18 04/13/18 Range/Units 11:52 06:03 06:00 WBC (4.8-10.8) K/uL RBC (4.40-5.90) Mil/uL Hgb (12.0-18.0) g/dL Hct (35.0-51.0) % MCV (80.0-94.0) fL MCH (27.0-31.0) pg MCHC (33.0-37.0) g/dL RDW (11.5-14.5) % Plt Count (130-400) K/uL MPV (7.2-11.7) fL Neut % (Auto) (50.0-75.0) % Lymph % (Auto) (20.0-40.0) % [place] % (Auto) (0.0-10.0) % Eos % (Auto) (0.0-4.0) % Baso % (Auto) (0.0-2.0) % Neut # (Auto) (1.8-7.0) K/uL Lymph # (Auto) (1.0-4.3) K/uL [place] # (Auto) (0.0-0.8) K/uL Eos # (Auto) (0.0-0.7) K/uL Baso # (Auto) (0.0-0.2) K/uL Sodium (132-148) mmol/L Potassium (3.6-5.2) mmol/L Chloride (98-107) mmol/L Carbon Dioxide (22-30) mmol/L Anion Gap (10-20) BUN (9-20) mg/dL Creatinine (0.8-1.5) mg/dL Est GFR ( Amer) Est GFR (Non-Af Amer) POC Glucose (mg/dL) 187 H 177 H (65-110) mg/dL Random Glucose (75-110) mg/dL Serum Osmolality (272-300) mosm/kg Calcium (8.6-10.4) mg/dl Total Bilirubin (0.2-1.3) mg/dL AST (17-59) U/L ALT (21-72) U/L Alkaline Phosphatase (38-126) U/L Total Protein (6.3-8.3) g/dL Albumin (3.5-5.0) g/dL Globulin (2.2-3.9) gm/dL Albumin/Globulin Ratio (1.0-2.1) Ethanolamine Urine Osmolality 618 (300-1000) mosm/kg Methyl Alcohol Level Isopropanol Acetone Level 04/13/18 04/13/18 04/13/18 Range/Units 06:00 06:00 06:00 WBC 10.3 (4.8-10.8) K/uL RBC 3.41 L (4.40-5.90) Mil/uL Hgb 10.6 L (12.0-18.0) g/dL Hct 31.6 L (35.0-51.0) % MCV 92.7 (80.0-94.0) fL MCH 31.1 H (27.0-31.0) pg MCHC 33.5 (33.0-37.0) g/dL RDW 14.7 H (11.5-14.5) % Plt Count 107 L (130-400) K/uL MPV 9.6 (7.2-11.7) fL Neut % (Auto) 82.9 H (50.0-75.0) % Lymph % (Auto) 10.4 L (20.0-40.0) % [place] % (Auto) 4.8 (0.0-10.0) % Eos % (Auto) 1.7 (0.0-4.0) % Baso % (Auto) 0.2 (0.0-2.0) % Neut # (Auto) 8.6 H (1.8-7.0) K/uL Lymph # (Auto) 1.1 (1.0-4.3) K/uL [place] # (Auto) 0.5 (0.0-0.8) K/uL Eos # (Auto) 0.2 (0.0-0.7) K/uL Baso # (Auto) 0.0 (0.0-0.2) K/uL Sodium 153 H (132-148) mmol/L Potassium 3.7 (3.6-5.2) mmol/L Chloride 117 H (98-107) mmol/L Carbon Dioxide 26 (22-30) mmol/L Anion Gap 14 (10-20) BUN 14 (9-20) mg/dL Creatinine 1.1 (0.8-1.5) mg/dL Est GFR ( Amer) > 60 Est GFR (Non-Af Amer) > 60 POC Glucose (mg/dL) (65-110) mg/dL Random Glucose 154 H (75-110) mg/dL Serum Osmolality 311 H (272-300) mosm/kg Calcium 10.3 (8.6-10.4) mg/dl Total Bilirubin 0.6 (0.2-1.3) mg/dL AST 40 (17-59) U/L ALT 20 L (21-72) U/L Alkaline Phosphatase 59 (38-126) U/L Total Protein 5.9 L (6.3-8.3) g/dL Albumin 2.8 L (3.5-5.0) g/dL Globulin 3.1 (2.2-3.9) gm/dL Albumin/Globulin Ratio 0.9 L (1.0-2.1) Ethanolamine Urine Osmolality (300-1000) mosm/kg Methyl Alcohol Level Isopropanol Acetone Level 04/12/18 04/12/18 04/09/18 Range/Units 23:52 17:48 12:30 WBC (4.8-10.8) K/uL RBC (4.40-5.90) Mil/uL Hgb (12.0-18.0) g/dL Hct (35.0-51.0) % MCV (80.0-94.0) fL MCH (27.0-31.0) pg MCHC (33.0-37.0) g/dL RDW (11.5-14.5) % Plt Count (130-400) K/uL MPV (7.2-11.7) fL Neut % (Auto) (50.0-75.0) % Lymph % (Auto) (20.0-40.0) % [place] % (Auto) (0.0-10.0) % Eos % (Auto) (0.0-4.0) % Baso % (Auto) (0.0-2.0) % Neut # (Auto) (1.8-7.0) K/uL Lymph # (Auto) (1.0-4.3) K/uL [place] # (Auto) (0.0-0.8) K/uL Eos # (Auto) (0.0-0.7) K/uL Baso # (Auto) (0.0-0.2) K/uL Sodium (132-148) mmol/L Potassium (3.6-5.2) mmol/L Chloride (98-107) mmol/L Carbon Dioxide (22-30) mmol/L Anion Gap (10-20) BUN (9-20) mg/dL Creatinine (0.8-1.5) mg/dL Est GFR ( Amer) Est GFR (Non-Af Amer) POC Glucose (mg/dL) 150 H 145 H (65-110) mg/dL Random Glucose (75-110) mg/dL Serum Osmolality (272-300) mosm/kg Calcium (8.6-10.4) mg/dl Total Bilirubin (0.2-1.3) mg/dL AST (17-59) U/L ALT (21-72) U/L Alkaline Phosphatase (38-126) U/L Total Protein (6.3-8.3) g/dL Albumin (3.5-5.0) g/dL Globulin (2.2-3.9) gm/dL Albumin/Globulin Ratio (1.0-2.1) Ethanolamine None detected Urine Osmolality (300-1000) mosm/kg Methyl Alcohol Level None detected Isopropanol None detected Acetone Level None detected Laboratory Results - last 24 hr 04/09/18 04/12/18 04/12/18 12:30 17:48 23:52 WBC RBC Hgb Hct MCV MCH MCHC RDW Plt Count MPV Neut % (Auto) Lymph % (Auto) [place] % (Auto) Eos % (Auto) Baso % (Auto) Neut # (Auto) Lymph # (Auto) [place] # (Auto) Eos # (Auto) Baso # (Auto) Sodium Potassium Chloride Carbon Dioxide Anion Gap BUN Creatinine Est GFR ( Amer) Est GFR (Non-Af Amer) POC Glucose (mg/dL) 145 H 150 H Random Glucose Serum Osmolality Calcium Total Bilirubin AST ALT Alkaline Phosphatase Total Protein Albumin Globulin Albumin/Globulin Ratio Ethanolamine None detected Urine Osmolality Methyl Alcohol Level None detected Isopropanol None detected Acetone Level None detected 04/13/18 04/13/18 04/13/18 06:00 06:00 06:00 WBC 10.3 RBC 3.41 L Hgb 10.6 L Hct 31.6 L MCV 92.7 MCH 31.1 H MCHC 33.5 RDW 14.7 H Plt Count 107 L MPV 9.6 Neut % (Auto) 82.9 H Lymph % (Auto) 10.4 L [place] % (Auto) 4.8 Eos % (Auto) 1.7 Baso % (Auto) 0.2 Neut # (Auto) 8.6 H Lymph # (Auto) 1.1 [place] # (Auto) 0.5 Eos # (Auto) 0.2 Baso # (Auto) 0.0 Sodium 153 H Potassium 3.7 Chloride 117 H Carbon Dioxide 26 Anion Gap 14 BUN 14 Creatinine 1.1 Est GFR ( Amer) > 60 Est GFR (Non-Af Amer) > 60 POC Glucose (mg/dL) Random Glucose 154 H Serum Osmolality 311 H Calcium 10.3 Total Bilirubin 0.6 AST 40 ALT 20 L Alkaline Phosphatase 59 Total Protein 5.9 L Albumin 2.8 L Globulin 3.1 Albumin/Globulin Ratio 0.9 L Ethanolamine Urine Osmolality Methyl Alcohol Level Isopropanol Acetone Level 04/13/18 04/13/18 04/13/18 06:00 06:03 11:52 WBC RBC Hgb Hct MCV MCH MCHC RDW Plt Count MPV Neut % (Auto) Lymph % (Auto) [place] % (Auto) Eos % (Auto) Baso % (Auto) Neut # (Auto) Lymph # (Auto) [place] # (Auto) Eos # (Auto) Baso # (Auto) Sodium Potassium Chloride Carbon Dioxide Anion Gap BUN Creatinine Est GFR ( Amer) Est GFR (Non-Af Amer) POC Glucose (mg/dL) 177 H 187 H Random Glucose Serum Osmolality Calcium Total Bilirubin AST ALT Alkaline Phosphatase Total Protein Albumin Globulin Albumin/Globulin Ratio Ethanolamine Urine Osmolality 618 Methyl Alcohol Level Isopropanol Acetone Level Fingerstick Blood Sugar Results: 187 Review of Systems - Review of Systems Systems not reviewed;Unavailable: Intubated Assessment/Plan - Assessment and Plan (Free Text) Assessment: Patient is a 78-year-old male with a history of diabetes hypertension and high cholesterol admitted with the subdural, intracerebral bleeding. Underwent surgical intervention, craniotomy. Postoperatively patient was doing okay, but began having increasing lethargic.Currently patient is very poorly responding. No gag reflex noted, he is not having any eye contact, no reflexes noted. Plan: Neuro: GCS: 3T Sedation: None A: Subdural hematoma, s/p Right Central craniotomy evacuation of subdural hematoma. Brain Flow Nuclear Medicine (04/10/18): Pattern is compatible with brain in the proper clinical setting Head CT (04/10/18): 1.Significant compression on the brainstem results in bilateral PULP TESTER and diffuse brainstem infarction also affecting bilateral cerebral peduncles. New limited hemorrhage is seen affecting phil moderately and left cerebral peduncle minimally and likely the right cerebral peduncle as well. Limited acute subacute hemorrhage is seen involving the inferior margin of the vermis and is likely present in the 4th ventricle as well. Left convexity subdural hematoma stable though rightward midline shift is stable at 8 mm toward the right. 2. Although corticomedullary differentiation is adequate at the upper mid cerebrum, lower cerebral corticomedullary differentiation is poor and global ischemia is suggested with infarction suggested early at the inferior frontotemporal and parietal distribution. Cortical lucency is minimal at medial bilateral frontal lobes superiorly, indicating acute to subacute infarctions. Bilateral thalamic and left groin right basal ganglia acute to subacute infarcts are identified. 3. Right-sided op postoperative scalp changes are slightly diminished. 4. Inversion of cerebral versus cerebellar density which can be seen in cases of brain . Please see separate cerebral blood flow nuclear medicine exam also performed 04/10/2018. Palliative Care Consulted DNR/DNI form Signed this AM Neurology/NeuroSurgery on Consult Cont. Mannitol IV UD Continue Keppra 500mg IV Q12H Pulm A: COPD (per CXR) PRVC mode: 19Rate, 40%Fi02, 500TV, 5 PEEP AB.45/34/129/25 CXR (04/11): Lines and tubes in stable position. Hyperinflation suggestive for COPD and or emphysematous changes. Biapical pleural thickening with upper lobe granulomatous changes. Diffuse increased interstitial lung markings. Right hilar prominence. Mild cardiomegaly with calcification at the aortic knob. Degenerative changes in the spine with paravertebral osteophytes. Cardiology A: Hypotension, Bradycardia Continue Levophed Drip Renal: A: Hypernatremia (Improving) , Hypokalemia, Hypophosphatemia d50 in Water Bolus Given Started D50 in Water at 100mls/hr Low Electrolytes Replaced. Cont. Ddavp BID ID [id number]: Leukocytosis (Improving), Hypothermia MRSA Negative Urine Cultures NEGATIVE Patient on Vanc Warming [place]. Dispo: Palliative Care Consulted. [place] standards to be followed and allow for natural . Pastoral Care for spiritual support, DNR/DNI Plan to follow Brain Protocol and Terminally Extubate. Patient discussed with Attending Jo Sandoval, PGY-1 <Salinas,Boyce M - Last Filed: 04/13/18 15:13> CCU Objective - Vital Signs / Intake & Output Vital Signs (Last 4 hours): Vital Signs Temp Pulse Resp BP Pulse Ox 04/13/18 14:04 147/82 04/13/18 14:00 50 L 19 100 04/13/18 13:04 51 L 19 153/85 H 100 04/13/18 13:00 51 L 19 100 04/13/18 12:04 52 L 6 L 141/76 100 04/13/18 12:00 97.6 F 52 L 10 L 100 Intake and Output (Last 8hrs): Intake & Output 04/13/18 04/13/18 04/13/18 06:59 14:59 22:59 Intake Total 978 1144 Output Total 575 300 Balance 403 844 Intake: IV 54 Intake, IV Amount 924 1114 Right Distal Port Femoral 74 64 Right Medial Port Femoral 250 Right Proximal Port 800 800 Femoral right proximal port y 50 Oral 30 Output: Urine 575 300 Urethral (Jimenez) 575 300 Other: # Bowel Movements 0 - Medications Active Medications: Active Medications Generic Name Dose Route Start Last Admin Trade Name Freq PRN Reason Stop Dose Admin Mannitol 250 mls @ 0 mls/hr 04/09/18 01:45 Mannitol IV .Q0M CARIN UD Mannitol 250 mls @ 0 mls/hr 04/09/18 01:45 Mannitol IV .Q0M CARIN UD Desmopressin Acetate 2 mcg/ 50.5 mls @ 100 mls/hr 04/11/18 10:00 04/13/18 09: 38 Sodium Chloride IV 100 mls/hr BID CARIN Administration Piperacillin Sod/Tazobactam Sod 3.375 gm in 50 mls @ 100 mls/hr 04/11/18 10: 30 04/13/18 09:37 Zosyn 3.375 Gm Iv Premix IVPB 100 mls/hr Q6H CARIN Administration Protocol Norepinephrine Bitartrate 8 mg 508 mls @ 15.24 mls/hr 04/11/18 11:00 03:19 / Dextrose IV 2.09 mcg/min .Q24H PRN 8 mls/hr TITRATE PER MD ORDER Titration Protocol 4 MCG/MIN Levetiracetam 500 mg/ Dextrose 105 mls @ 420 mls/hr 04/12/18 22:00 04/13/18 09:38 IVPB 420 mls/hr Q12H CARIN Administration Dextrose 1,000 mls @ 100 mls/hr 04/12/18 22:15 04/13/18 07:47 Dextrose 5% In Water 1000 Ml IV 100 mls/hr .Q10H CARIN Administration Ondansetron HCl 4 mg 04/08/18 23:37 Zofran Inj IVP Q6H PRN Nausea/Vomiting Pantoprazole Sodium 40 mg 04/09/18 10:00 04/13/18 09:37 Protonix Inj IVP 40 mg DAILY CARIN Administration - Patient Studies Lab Studies: Lab Studies 04/13/18 04/13/18 04/13/18 Range/Units 11:52 06:03 06:00 WBC (4.8-10.8) K/uL RBC (4.40-5.90) Mil/uL Hgb (12.0-18.0) g/dL Hct (35.0-51.0) % MCV (80.0-94.0) fL MCH (27.0-31.0) pg MCHC (33.0-37.0) g/dL RDW (11.5-14.5) % Plt Count (130-400) K/uL MPV (7.2-11.7) fL Neut % (Auto) (50.0-75.0) % Lymph % (Auto) (20.0-40.0) % [place] % (Auto) (0.0-10.0) % Eos % (Auto) (0.0-4.0) % Baso % (Auto) (0.0-2.0) % Neut # (Auto) (1.8-7.0) K/uL Lymph # (Auto) (1.0-4.3) K/uL [place] # (Auto) (0.0-0.8) K/uL Eos # (Auto) (0.0-0.7) K/uL Baso # (Auto) (0.0-0.2) K/uL Sodium (132-148) mmol/L Potassium (3.6-5.2) mmol/L Chloride (98-107) mmol/L Carbon Dioxide (22-30) mmol/L Anion Gap (10-20) BUN (9-20) mg/dL Creatinine (0.8-1.5) mg/dL Est GFR ( Amer) Est GFR (Non-Af Amer) POC Glucose (mg/dL) 187 H 177 H (65-110) mg/dL Random Glucose (75-110) mg/dL Serum Osmolality (272-300) mosm/kg Calcium (8.6-10.4) mg/dl Total Bilirubin (0.2-1.3) mg/dL AST (17-59) U/L ALT (21-72) U/L Alkaline Phosphatase (38-126) U/L Total Protein (6.3-8.3) g/dL Albumin (3.5-5.0) g/dL Globulin (2.2-3.9) gm/dL Albumin/Globulin Ratio (1.0-2.1) Ethanolamine Urine Osmolality 618 (300-1000) mosm/kg Methyl Alcohol Level Isopropanol Acetone Level 04/13/18 04/13/18 04/13/18 Range/Units 06:00 06:00 06:00 WBC 10.3 (4.8-10.8) K/uL RBC 3.41 L (4.40-5.90) Mil/uL Hgb 10.6 L (12.0-18.0) g/dL Hct 31.6 L (35.0-51.0) % MCV 92.7 (80.0-94.0) fL MCH 31.1 H (27.0-31.0) pg MCHC 33.5 (33.0-37.0) g/dL RDW 14.7 H (11.5-14.5) % Plt Count 107 L (130-400) K/uL MPV 9.6 (7.2-11.7) fL Neut % (Auto) 82.9 H (50.0-75.0) % Lymph % (Auto) 10.4 L (20.0-40.0) % [place] % (Auto) 4.8 (0.0-10.0) % Eos % (Auto) 1.7 (0.0-4.0) % Baso % (Auto) 0.2 (0.0-2.0) % Neut # (Auto) 8.6 H (1.8-7.0) K/uL Lymph # (Auto) 1.1 (1.0-4.3) K/uL [place] # (Auto) 0.5 (0.0-0.8) K/uL Eos # (Auto) 0.2 (0.0-0.7) K/uL Baso # (Auto) 0.0 (0.0-0.2) K/uL Sodium 153 H (132-148) mmol/L Potassium 3.7 (3.6-5.2) mmol/L Chloride 117 H (98-107) mmol/L Carbon Dioxide 26 (22-30) mmol/L Anion Gap 14 (10-20) BUN 14 (9-20) mg/dL Creatinine 1.1 (0.8-1.5) mg/dL Est GFR ( Amer) > 60 Est GFR (Non-Af Amer) > 60 POC Glucose (mg/dL) (65-110) mg/dL Random Glucose 154 H (75-110) mg/dL Serum Osmolality 311 H (272-300) mosm/kg Calcium 10.3 (8.6-10.4) mg/dl Total Bilirubin 0.6 (0.2-1.3) mg/dL AST 40 (17-59) U/L ALT 20 L (21-72) U/L Alkaline Phosphatase 59 (38-126) U/L Total Protein 5.9 L (6.3-8.3) g/dL Albumin 2.8 L (3.5-5.0) g/dL Globulin 3.1 (2.2-3.9) gm/dL Albumin/Globulin Ratio 0.9 L (1.0-2.1) Ethanolamine Urine Osmolality (300-1000) mosm/kg Methyl Alcohol Level Isopropanol Acetone Level 04/12/18 04/12/18 04/09/18 Range/Units 23:52 17:48 12:30 WBC (4.8-10.8) K/uL RBC (4.40-5.90) Mil/uL Hgb (12.0-18.0) g/dL Hct (35.0-51.0) % MCV (80.0-94.0) fL MCH (27.0-31.0) pg MCHC (33.0-37.0) g/dL RDW (11.5-14.5) % Plt Count (130-400) K/uL MPV (7.2-11.7) fL Neut % (Auto) (50.0-75.0) % Lymph % (Auto) (20.0-40.0) % [place] % (Auto) (0.0-10.0) % Eos % (Auto) (0.0-4.0) % Baso % (Auto) (0.0-2.0) % Neut # (Auto) (1.8-7.0) K/uL Lymph # (Auto) (1.0-4.3) K/uL [place] # (Auto) (0.0-0.8) K/uL Eos # (Auto) (0.0-0.7) K/uL Baso # (Auto) (0.0-0.2) K/uL Sodium (132-148) mmol/L Potassium (3.6-5.2) mmol/L Chloride (98-107) mmol/L Carbon Dioxide (22-30) mmol/L Anion Gap (10-20) BUN (9-20) mg/dL Creatinine (0.8-1.5) mg/dL Est GFR ( Amer) Est GFR (Non-Af Amer) POC Glucose (mg/dL) 150 H 145 H (65-110) mg/dL Random Glucose (75-110) mg/dL Serum Osmolality (272-300) mosm/kg Calcium (8.6-10.4) mg/dl Total Bilirubin (0.2-1.3) mg/dL AST (17-59) U/L ALT (21-72) U/L Alkaline Phosphatase (38-126) U/L Total Protein (6.3-8.3) g/dL Albumin (3.5-5.0) g/dL Globulin (2.2-3.9) gm/dL Albumin/Globulin Ratio (1.0-2.1) Ethanolamine None detected Urine Osmolality (300-1000) mosm/kg Methyl Alcohol Level None detected Isopropanol None detected Acetone Level None detected Laboratory Results - last 24 hr 04/09/18 04/12/18 04/12/18 12:30 17:48 23:52 WBC RBC Hgb Hct MCV MCH MCHC RDW Plt Count MPV Neut % (Auto) Lymph % (Auto) [place] % (Auto) Eos % (Auto) Baso % (Auto) Neut # (Auto) Lymph # (Auto) [place] # (Auto) Eos # (Auto) Baso # (Auto) Sodium Potassium Chloride Carbon Dioxide Anion Gap BUN Creatinine Est GFR ( Amer) Est GFR (Non-Af Amer) POC Glucose (mg/dL) 145 H 150 H Random Glucose Serum Osmolality Calcium Total Bilirubin AST ALT Alkaline Phosphatase Total Protein Albumin Globulin Albumin/Globulin Ratio Ethanolamine None detected Urine Osmolality Methyl Alcohol Level None detected Isopropanol None detected Acetone Level None detected 04/13/18 04/13/18 04/13/18 06:00 06:00 06:00 WBC 10.3 RBC 3.41 L Hgb 10.6 L Hct 31.6 L MCV 92.7 MCH 31.1 H MCHC 33.5 RDW 14.7 H Plt Count 107 L MPV 9.6 Neut % (Auto) 82.9 H Lymph % (Auto) 10.4 L [place] % (Auto) 4.8 Eos % (Auto) 1.7 Baso % (Auto) 0.2 Neut # (Auto) 8.6 H Lymph # (Auto) 1.1 [place] # (Auto) 0.5 Eos # (Auto) 0.2 Baso # (Auto) 0.0 Sodium 153 H Potassium 3.7 Chloride 117 H Carbon Dioxide 26 Anion Gap 14 BUN 14 Creatinine 1.1 Est GFR ( Amer) > 60 Est GFR (Non-Af Amer) > 60 POC Glucose (mg/dL) Random Glucose 154 H Serum Osmolality 311 H Calcium 10.3 Total Bilirubin 0.6 AST 40 ALT 20 L Alkaline Phosphatase 59 Total Protein 5.9 L Albumin 2.8 L Globulin 3.1 Albumin/Globulin Ratio 0.9 L Ethanolamine Urine Osmolality Methyl Alcohol Level Isopropanol Acetone Level 04/13/18 04/13/18 04/13/18 06:00 06:03 11:52 WBC RBC Hgb Hct MCV MCH MCHC RDW Plt Count MPV Neut % (Auto) Lymph % (Auto) [place] % (Auto) Eos % (Auto) Baso % (Auto) Neut # (Auto) Lymph # (Auto) [place] # (Auto) Eos # (Auto) Baso # (Auto) Sodium Potassium Chloride Carbon Dioxide Anion Gap BUN Creatinine Est GFR ( Amer) Est GFR (Non-Af Amer) POC Glucose (mg/dL) 177 H 187 H Random Glucose Serum Osmolality Calcium Total Bilirubin AST ALT Alkaline Phosphatase Total Protein Albumin Globulin Albumin/Globulin Ratio Ethanolamine Urine Osmolality 618 Methyl Alcohol Level Isopropanol Acetone Level Assessment/Plan - Assessment and Plan (Free Text) Plan: Patient seen and examined at bedside. patient does not trigger the vent. patient 's utox neg, pupils not reactive. Patient has no flow on cerebral blood flow. Brain protocol to be started today. Neurology to document clinical signs and symptoms of brain . 2 physician to attest to accuracy of brain criteria. family informed of poor prognosis. - Date & Time Date: 04/13/18 Time: 15:13
--- NOTE | 2018-04-13 18:34 | CP.PCM.PN ---
Subjective - Date & Time of Evaluation Date of Evaluation: 04/13/18 Time of Evaluation: 12:40 - Subjective Subjective: clinically same Objective - Vital Signs/Intake and Output Vital Signs (last 24 hours): Temp Pulse Resp BP Pulse Ox 97.6 F 49 L 14 138/79 100 04/13/18 12:00 04/13/18 15:04 04/13/18 15:04 04/13/18 15:04 04/13/18 15:00 Intake and Output: 04/13/18 04/13/18 06:59 18:59 Intake Total 1666.5 1252 Output Total 725 340 Balance 941.5 912 - Medications Medications: Current Medications Mannitol (Mannitol) 250 mls @ 0 mls/hr IV .Q0M CARIN PRN Reason: UD Mannitol (Mannitol) 250 mls @ 0 mls/hr IV .Q0M CARIN PRN Reason: UD Desmopressin Acetate 2 mcg/ (Sodium Chloride) 50.5 mls @ 100 mls/hr IV BID [facility] Last Admin: 04/13/18 17:53 Dose: 100 mls/hr Piperacillin Sod/Tazobactam Sod (Zosyn 3.375 Gm Iv Premix) 3.375 gm in 50 mls @ 100 mls/hr IVPB Q6H [facility] PRN Reason: Protocol Last Admin: 04/13/18 16:30 Dose: 100 mls/hr Norepinephrine Bitartrate 8 mg (/ Dextrose) 508 mls @ 15.24 mls/hr IV .Q24H PRN ; Protocol; 4 MCG/MIN PRN Reason: TITRATE PER MD ORDER Last Titration: 04/13/18 03:19 Dose: 2.09 mcg/min, 8 mls/hr Levetiracetam 500 mg/ Dextrose 105 mls @ 420 mls/hr IVPB Q12H [facility] Last Admin: 04/13/18 09:38 Dose: 420 mls/hr Dextrose (Dextrose 5% In Water 1000 Ml) 1,000 mls @ 100 mls/hr IV .Q10H [facility] Last Admin: 04/13/18 17:53 Dose: 100 mls/hr Ondansetron HCl (Zofran Inj) 4 mg IVP Q6H PRN PRN Reason: Nausea/Vomiting Pantoprazole Sodium (Protonix Inj) 40 mg IVP DAILY [facility] Last Admin: 04/13/18 09:37 Dose: 40 mg - Labs Labs: 04/13/18 06:00 04/13/18 06:00 PT 14.3 SECONDS (9.7-12.2) H 04/12/18 06:10 INR 1.3 04/12/18 06:10 APTT 31 SECONDS (21-34) 04/12/18 06:10 - Constitutional Appears: Well - Head Exam Head Exam: ATRAUMATIC, NORMAL INSPECTION, NORMOCEPHALIC - Eye Exam Eye Exam: EOMI, Normal appearance, PERRL Pupil Exam: NORMAL ACCOMODATION, PERRL - ENT Exam ENT Exam: Mucous Membranes Moist, Normal Exam - Neck Exam Neck Exam: Full ROM, Normal Inspection. absent: Lymphadenopathy - Respiratory Exam Respiratory Exam: Decreased Breath Sounds - Cardiovascular Exam Cardiovascular Exam: REGULAR RHYTHM, +S1, +S2 - GI/Abdominal Exam GI & Abdominal Exam: Soft, Diminished Bowel Sounds - Rectal Exam Rectal Exam: Deferred Assessment and Plan (1) Coma Status: Acute (2) Subarachnoidal hemorrhage Status: Acute (3) Subdural hematoma, post-traumatic Status: Acute (4) H/O diverticulitis of colon Status: Acute (5) Hemorrhoids Status: Acute (6) Hyperlipidemia Status: Acute (7) Hypertension Status: Acute (8) Prophylactic measure Status: Acute (9) Rectal bleeding Status: Acute
--- NOTE | 2018-04-13 22:58 | CP.PCM.PN ---
Subjective - Subjective Subjective: The Patient was seen and examined at the bedside, Medical records reviewed, and management issues were discussed and formulated with the house staff. Objective - Vital Signs/Intake and Output Vital Signs (last 24 hours): Temp Pulse Resp BP Pulse Ox 96 F L 49 L 0 L 115/76 100 04/13/18 20:00 04/13/18 22:04 04/13/18 22:04 04/13/18 22:04 04/13/18 22:00 Intake and Output: 04/13/18 04/14/18 18:59 06:59 Intake Total 1676 432 Output Total 810 400 Balance 866 32 - Medications Medications: Current Medications Mannitol (Mannitol) 250 mls @ 0 mls/hr IV .Q0M CARIN PRN Reason: UD Mannitol (Mannitol) 250 mls @ 0 mls/hr IV .Q0M CARIN PRN Reason: UD Desmopressin Acetate 2 mcg/ (Sodium Chloride) 50.5 mls @ 100 mls/hr IV BID [facility] Last Admin: 04/13/18 17:53 Dose: 100 mls/hr Piperacillin Sod/Tazobactam Sod (Zosyn 3.375 Gm Iv Premix) 3.375 gm in 50 mls @ 100 mls/hr IVPB Q6H CARIN PRN Reason: Protocol Last Admin: 04/13/18 21:32 Dose: 100 mls/hr Norepinephrine Bitartrate 8 mg (/ Dextrose) 508 mls @ 15.24 mls/hr IV .Q24H PRN ; Protocol; 4 MCG/MIN PRN Reason: TITRATE PER MD ORDER Last Titration: 04/13/18 03:19 Dose: 2.09 mcg/min, 8 mls/hr Levetiracetam 500 mg/ Dextrose 105 mls @ 420 mls/hr IVPB Q12H CARIN Last Admin: 04/13/18 21:15 Dose: 420 mls/hr Dextrose (Dextrose 5% In Water 1000 Ml) 1,000 mls @ 100 mls/hr IV .Q10H [facility] Last Admin: 04/13/18 17:53 Dose: 100 mls/hr Ondansetron HCl (Zofran Inj) 4 mg IVP Q6H PRN PRN Reason: Nausea/Vomiting Pantoprazole Sodium (Protonix Inj) 40 mg IVP DAILY [facility] Last Admin: 04/13/18 09:37 Dose: 40 mg - Labs Labs: 04/13/18 06:00 04/13/18 06:00 PT 14.3 SECONDS (9.7-12.2) H 04/12/18 06:10 INR 1.3 04/12/18 06:10 APTT 31 SECONDS (21-34) 04/12/18 06:10
[2018-04-14] MEDS: Norepinephrine 8 MG in Dextrose 5% In Water 500 ML IV PRN (02:08)
[2018-04-14] MEDS: Piperacill/Tazo 3.375gm in Dex 3.375 GM/50 ML BAG IVPB SCH ×2 (04:42→09:48)
--- NOTE | 2018-04-14 06:14 | CARD ---
APPROVED REPORT EKG Measurement Heart [id number] <Conclusion> Sinus rhythm with 1st degree AV block Nonspecific intraventricular conduction delay Borderline ECG
[2018-04-14 06:35] LABS: BASO % 0.2 % (0.0-2.0); EOS # 0.2 K/uL (0.0-0.7); HEMOGLOBIN 10.4 g/dL (12.0-18.0); LYMPH % 10.8 % (20.0-40.0); MEAN CELL VOLUME 90.9 fL (80.0-94.0); MEAN CORPUSCULAR HEMOGLOBIN 31.3 pg (27.0-31.0); MEAN CORPUSCULAR HGB CONC 34.4 g/dL (33.0-37.0); MEAN PLATELET VOLUME 9.6 fL (7.2-11.7); MONO # 0.5 K/uL (0.0-0.8); MONO % 5.1 % (0.0-10.0); NEUT # 7.5 K/uL (1.8-7.0); NEUT % 81.9 % (50.0-75.0); RBC 3.31 Mil/uL (4.40-5.90); RED CELL DISTRIBUTION WIDTH 14.4 % (11.5-14.5); WHITE BLOOD COUNT 9.2 K/uL (4.8-10.8)
[2018-04-14 06:44] LABS: ALB/GLOB RATIO 0.9 (1.0-2.1); ALBUMIN 2.8 g/dL (3.5-5.0); ALT/SGPT 23 U/L (21-72); AST/SGOT 39 U/L (17-59); BLOOD UREA NITROGEN 12 mg/dL (9-20); CALCIUM 9.7 mg/dl (8.6-10.4); GFR AFRICAN-AMERICAN > 60; GFR NON-AFRICAN AMERICAN > 60
--- NOTE | 2018-04-14 10:30 | PN ---
DATE: 04/14/2018 NEUROLOGIC PROBLEM: Posttraumatic three compartmental bleed, status post surgical evacuation of subdural hematoma on the right side with coma. PHYSICAL EXAMINATION: VITAL SIGNS: Blood pressure 155/80 with mean arterial pressure of 105, pulse rate 52, respiratory rate 12 on vent. NEUROLOGIC: The patient is comatosed. Eyes are closed. Fixed pupil. No oculocephalic. No gag on manipulating the endotracheal tube. 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 His neurological examination is unchanged, and he attained irreversible insult to the central nervous system. The patient is scheduled to have terminal extubation today. Sina Scruggs MD
--- NOTE | 2018-04-14 15:29 | CP.CCUPN ---
Addendum entered and electronically signed by Jo Sandoval DO 04/14/18 16:15: Brain Protocol preformed w/ Apnea Test. Patient is confirmed brain . Original Note: <Jo Sandoval - Last Filed: 04/14/18 15:27> CCU Subjective - Physician Review Subjective (Free Text): Patient seen and examined at bedside. On mechanical vent PRVC mode. CCU Objective - Vital Signs / Intake & Output Vital Signs (Last 4 hours): Vital Signs Pulse Resp BP Pulse Ox 04/14/18 14:12 74 19 101/63 100 04/14/18 14:00 72 19 100 04/14/18 13:00 66 5 L 100 04/14/18 12:05 52 L 14 153/84 H 100 04/14/18 12:00 54 L 19 Intake and Output (Last 8hrs): Intake & Output 04/14/18 04/14/18 04/14/18 06:59 14:59 22:59 Intake Total 1110 990 Output Total 980 1120 Balance 130 -130 Intake: IV 246 108 Intake, IV Amount 864 882 Right Distal Port Femoral 64 32 Right Medial Port Femoral 250 Right Proximal Port 800 600 Femoral Oral 0 0 Output: Urine 980 1120 Urethral (Jimenez) 980 1120 Other: # Bowel Movements 0 0 - Physical Exam Head: Positive for: Normocephalic Pupils: Positive for: Non-Reactive Extroacular Muscles: Negative for: EOMI Conjunctiva: Positive for: Normal Mouth: Positive for: Moist Mucous Membranes Pharnyx: Positive for: Normal Nose (External): Positive for: Atraumatic Nose (Internal): Positive for: Normal Inspection Neck: Positive for: Normal Range of Motion Respiratory/Chest: Positive for: Clear to Auscultation Cardiovascular: Positive for: Regular Rate and Rhythm, Normal S1, S2 Abdomen: Negative for: Tenderness Back: Positive for: GCS, CN, SP Upper Extremity: Positive for: Normal Inspection. Negative for: Cyanosis, Edema Lower Extremity: Positive for: Normal Inspection. Negative for: Edema Neurological: Negative for: GCS=15 (GCS-3T) Skin: Positive for: Dry, Normal Color, Cold. Negative for: Rashes Psychiatric: Negative for: Alert, Oriented x 3 - Medications Active Medications: Active Medications Generic Name Dose Route Start Last Admin Trade Name Freq PRN Reason Stop Dose Admin Levetiracetam 500 mg/ Dextrose 105 mls @ 420 mls/hr 04/12/18 22:00 04/14/18 09:48 IVPB 420 mls/hr Q12H CARIN Administration - Patient Studies Lab Studies: Lab Studies 04/14/18 04/14/18 04/14/18 Range/Units 11:28 06:23 06:23 WBC 9.2 (4.8-10.8) K/uL RBC 3.31 L (4.40-5.90) Mil/uL Hgb 10.4 L (12.0-18.0) g/dL Hct 30.1 L (35.0-51.0) % MCV 90.9 (80.0-94.0) fL MCH 31.3 H (27.0-31.0) pg MCHC 34.4 (33.0-37.0) g/dL RDW 14.4 (11.5-14.5) % Plt Count 107 L (130-400) K/uL MPV 9.6 (7.2-11.7) fL Neut % (Auto) 81.9 H (50.0-75.0) % Lymph % (Auto) 10.8 L (20.0-40.0) % [place] % (Auto) 5.1 (0.0-10.0) % Eos % (Auto) 2.0 (0.0-4.0) % Baso % (Auto) 0.2 (0.0-2.0) % Neut # (Auto) 7.5 H (1.8-7.0) K/uL Lymph # (Auto) 1.0 (1.0-4.3) K/uL [place] # (Auto) 0.5 (0.0-0.8) K/uL Eos # (Auto) 0.2 (0.0-0.7) K/uL Baso # (Auto) 0.0 (0.0-0.2) K/uL Sodium 142 (132-148) mmol/L Potassium 3.4 L (3.6-5.2) mmol/L Chloride 111 H (98-107) mmol/L Carbon Dioxide 23 (22-30) mmol/L Anion Gap 11 (10-20) BUN 12 (9-20) mg/dL Creatinine 0.7 L (0.8-1.5) mg/dL Est GFR ( Amer) > 60 Est GFR (Non-Af Amer) > 60 POC Glucose (mg/dL) 141 H (65-110) mg/dL Random Glucose 174 H (75-110) mg/dL Calcium 9.7 (8.6-10.4) mg/dl Total Bilirubin 0.8 (0.2-1.3) mg/dL AST 39 (17-59) U/L ALT 23 (21-72) U/L Alkaline Phosphatase 67 (38-126) U/L Total Protein 6.1 L (6.3-8.3) g/dL Albumin 2.8 L (3.5-5.0) g/dL Globulin 3.3 (2.2-3.9) gm/dL Albumin/Globulin Ratio 0.9 L (1.0-2.1) Toxicology Panel 04/14/18 04/13/18 04/13/18 Range/Units 05:47 23:43 18:03 WBC (4.8-10.8) K/uL RBC (4.40-5.90) Mil/uL Hgb (12.0-18.0) g/dL Hct (35.0-51.0) % MCV (80.0-94.0) fL MCH (27.0-31.0) pg MCHC (33.0-37.0) g/dL RDW (11.5-14.5) % Plt Count (130-400) K/uL MPV (7.2-11.7) fL Neut % (Auto) (50.0-75.0) % Lymph % (Auto) (20.0-40.0) % [place] % (Auto) (0.0-10.0) % Eos % (Auto) (0.0-4.0) % Baso % (Auto) (0.0-2.0) % Neut # (Auto) (1.8-7.0) K/uL Lymph # (Auto) (1.0-4.3) K/uL [place] # (Auto) (0.0-0.8) K/uL Eos # (Auto) (0.0-0.7) K/uL Baso # (Auto) (0.0-0.2) K/uL Sodium (132-148) mmol/L Potassium (3.6-5.2) mmol/L Chloride (98-107) mmol/L Carbon Dioxide (22-30) mmol/L Anion Gap (10-20) BUN (9-20) mg/dL Creatinine (0.8-1.5) mg/dL Est GFR ( Amer) Est GFR (Non-Af Amer) POC Glucose (mg/dL) 118 H 175 H 171 H (65-110) mg/dL Random Glucose (75-110) mg/dL Calcium (8.6-10.4) mg/dl Total Bilirubin (0.2-1.3) mg/dL AST (17-59) U/L ALT (21-72) U/L Alkaline Phosphatase (38-126) U/L Total Protein (6.3-8.3) g/dL Albumin (3.5-5.0) g/dL Globulin (2.2-3.9) gm/dL Albumin/Globulin Ratio (1.0-2.1) Toxicology Panel 04/09/18 Range/Units 12:30 WBC (4.8-10.8) K/uL RBC (4.40-5.90) Mil/uL Hgb (12.0-18.0) g/dL Hct (35.0-51.0) % MCV (80.0-94.0) fL MCH (27.0-31.0) pg MCHC (33.0-37.0) g/dL RDW (11.5-14.5) % Plt Count (130-400) K/uL MPV (7.2-11.7) fL Neut % (Auto) (50.0-75.0) % Lymph % (Auto) (20.0-40.0) % [place] % (Auto) (0.0-10.0) % Eos % (Auto) (0.0-4.0) % Baso % (Auto) (0.0-2.0) % Neut # (Auto) (1.8-7.0) K/uL Lymph # (Auto) (1.0-4.3) K/uL [place] # (Auto) (0.0-0.8) K/uL Eos # (Auto) (0.0-0.7) K/uL Baso # (Auto) (0.0-0.2) K/uL Sodium (132-148) mmol/L Potassium (3.6-5.2) mmol/L Chloride (98-107) mmol/L Carbon Dioxide (22-30) mmol/L Anion Gap (10-20) BUN (9-20) mg/dL Creatinine (0.8-1.5) mg/dL Est GFR ( Amer) Est GFR (Non-Af Amer) POC Glucose (mg/dL) (65-110) mg/dL Random Glucose (75-110) mg/dL Calcium (8.6-10.4) mg/dl Total Bilirubin (0.2-1.3) mg/dL AST (17-59) U/L ALT (21-72) U/L Alkaline Phosphatase (38-126) U/L Total Protein (6.3-8.3) g/dL Albumin (3.5-5.0) g/dL Globulin (2.2-3.9) gm/dL Albumin/Globulin Ratio (1.0-2.1) Toxicology Panel see note Laboratory Results - last 24 hr 04/09/18 04/13/18 04/13/18 12:30 18:03 23:43 WBC RBC Hgb Hct MCV MCH MCHC RDW Plt Count MPV Neut % (Auto) Lymph % (Auto) [place] % (Auto) Eos % (Auto) Baso % (Auto) Neut # (Auto) Lymph # (Auto) [place] # (Auto) Eos # (Auto) Baso # (Auto) Sodium Potassium Chloride Carbon Dioxide Anion Gap BUN Creatinine Est GFR ( Amer) Est GFR (Non-Af Amer) POC Glucose (mg/dL) 171 H 175 H Random Glucose Calcium Total Bilirubin AST ALT Alkaline Phosphatase Total Protein Albumin Globulin Albumin/Globulin Ratio Toxicology Panel see note 04/14/18 04/14/18 04/14/18 05:47 06:23 06:23 WBC 9.2 RBC 3.31 L Hgb 10.4 L Hct 30.1 L MCV 90.9 MCH 31.3 H MCHC 34.4 RDW 14.4 Plt Count 107 L MPV 9.6 Neut % (Auto) 81.9 H Lymph % (Auto) 10.8 L [place] % (Auto) 5.1 Eos % (Auto) 2.0 Baso % (Auto) 0.2 Neut # (Auto) 7.5 H Lymph # (Auto) 1.0 [place] # (Auto) 0.5 Eos # (Auto) 0.2 Baso # (Auto) 0.0 Sodium 142 Potassium 3.4 L Chloride 111 H Carbon Dioxide 23 Anion Gap 11 BUN 12 Creatinine 0.7 L Est GFR ( Amer) > 60 Est GFR (Non-Af Amer) > 60 POC Glucose (mg/dL) 118 H Random Glucose 174 H Calcium 9.7 Total Bilirubin 0.8 AST 39 ALT 23 Alkaline Phosphatase 67 Total Protein 6.1 L Albumin 2.8 L Globulin 3.3 Albumin/Globulin Ratio 0.9 L Toxicology Panel 04/14/18 11:28 WBC RBC Hgb Hct MCV MCH MCHC RDW Plt Count MPV Neut % (Auto) Lymph % (Auto) [place] % (Auto) Eos % (Auto) Baso % (Auto) Neut # (Auto) Lymph # (Auto) [place] # (Auto) Eos # (Auto) Baso # (Auto) Sodium Potassium Chloride Carbon Dioxide Anion Gap BUN Creatinine Est GFR ( Amer) Est GFR (Non-Af Amer) POC Glucose (mg/dL) 141 H Random Glucose Calcium Total Bilirubin AST ALT Alkaline Phosphatase Total Protein Albumin Globulin Albumin/Globulin Ratio Toxicology Panel Fingerstick Blood Sugar Results: 118 Review of Systems - Review of Systems Systems not reviewed;Unavailable: Intubated Assessment/Plan - Assessment and Plan (Free Text) Assessment: Patient is a 78-year-old male with a history of diabetes hypertension and high cholesterol admitted with the subdural, intracerebral bleeding. Underwent surgical intervention, craniotomy. Postoperatively patient was doing okay, but began having increasing lethargic. Currently patient is very poorly responding. No gag reflex noted, he is not having any eye contact, no reflexes noted. Plan: Neuro: GCS: 3T Sedation: None A: Subdural hematoma, s/p Right Central craniotomy evacuation of subdural hematoma. Brain Flow Nuclear Medicine (04/10/18): Pattern is compatible with brain in the proper clinical setting Head CT (04/10/18): 1.Significant compression on the brainstem results in bilateral [employer] and diffuse brainstem infarction also affecting bilateral cerebral peduncles. New limited hemorrhage is seen affecting phil moderately and left cerebral peduncle minimally and likely the right cerebral peduncle as well. Limited acute subacute hemorrhage is seen involving the inferior margin of the vermis and is likely present in the 4th ventricle as well. Left convexity subdural hematoma stable though rightward midline shift is stable at 8 mm toward the right. 2. Although corticomedullary differentiation is adequate at the upper mid cerebrum, lower cerebral corticomedullary differentiation is poor and global ischemia is suggested with infarction suggested early at the inferior frontotemporal and parietal distribution. Cortical lucency is minimal at medial bilateral frontal lobes superiorly, indicating acute to subacute infarctions. Bilateral thalamic and left groin right basal ganglia acute to subacute infarcts are identified. 3. Right-sided op postoperative scalp changes are slightly diminished. 4. Inversion of cerebral versus cerebellar density which can be seen in cases of brain . Please see separate cerebral blood flow nuclear medicine exam also performed 04/10/2018. Palliative Care Consulted DNR/DNI form Signed this AM Neurology/NeuroSurgery on Consult Cont. Mannitol IV UD Continue Keppra 500mg IV Q12H Pulm A: COPD (per CXR) PRVC mode: 19Rate, 40%Fi02, 500TV, 5 PEEP AB.45/34/129/25 CXR (04/11): Lines and tubes in stable position. Hyperinflation suggestive for COPD and or emphysematous changes. Biapical pleural thickening with upper lobe granulomatous changes. Diffuse increased interstitial lung markings. Right hilar prominence. Mild cardiomegaly with calcification at the aortic knob. Degenerative changes in the spine with paravertebral osteophytes. Cardiology A: Hypotension, Bradycardia Continue Levophed Drip Renal: A: Hypernatremia (Resolved) , Hypokalemia, Hypophosphatemia Low Electrolytes Replaced. ID A: Leukocytosis (Improving), Hypothermia MRSA Negative Urine Cultures NEGATIVE Patient on [place]. Dispo: Palliative Care Consulted. [place] standards to be followed and allow for natural . Pastoral Care for spiritual support, DNR/DNI Plan to follow Brain Protocol and Terminally Extubate. Patient discussed with Attending Jo Sandoval, PGY-1 <Rk Kaplan - Last Filed: 04/14/18 16:46> CCU Objective - Vital Signs / Intake & Output Vital Signs (Last 4 hours): Vital Signs Pulse Resp BP Pulse Ox 04/14/18 15:00 65 19 100 04/14/18 14:30 70 16 110/79 100 04/14/18 14:12 74 19 101/63 100 04/14/18 14:00 72 19 100 04/14/18 13:00 66 5 L 100 Intake and Output (Last 8hrs): Intake & Output 04/14/18 04/14/18 04/14/18 06:59 14:59 22:59 Intake Total 1110 990 0 Output Total 980 1850 100 Balance 130 -860 -100 Intake: IV 246 108 Intake, IV Amount 864 882 0 Right Distal Port Femoral 64 32 0 Right Medial Port Femoral 250 0 Right Proximal Port 800 600 0 Femoral Oral 0 0 0 Output: Urine 980 1850 100 Urethral (Jimenez) 980 1850 100 Other: # Bowel Movements 0 0 0 - Medications Active Medications: Active Medications Generic Name Dose Route Start Last Admin Trade Name Freq PRN Reason Stop Dose Admin Levetiracetam 500 mg/ Dextrose 105 mls @ 420 mls/hr 04/12/18 22:00 04/14/18 09:48 IVPB 420 mls/hr Q12H CARIN Administration - Patient Studies Lab Studies: Lab Studies 04/14/18 04/14/18 04/14/18 Range/Units 15:55 15:45 11:28 WBC (4.8-10.8) K/uL RBC (4.40-5.90) Mil/uL Hgb (12.0-18.0) g/dL Hct (35.0-51.0) % MCV (80.0-94.0) fL MCH (27.0-31.0) pg MCHC (33.0-37.0) g/dL RDW (11.5-14.5) % Plt Count (130-400) K/uL MPV (7.2-11.7) fL Neut % (Auto) (50.0-75.0) % Lymph % (Auto) (20.0-40.0) % [place] % (Auto) (0.0-10.0) % Eos % (Auto) (0.0-4.0) % Baso % (Auto) (0.0-2.0) % Neut # (Auto) (1.8-7.0) K/uL Lymph # (Auto) (1.0-4.3) K/uL [place] # (Auto) (0.0-0.8) K/uL Eos # (Auto) (0.0-0.7) K/uL Baso # (Auto) (0.0-0.2) K/uL Puncture Site A line A line pCO2 60 H 26 L (35-45) mm/Hg pO2 161 H 370 H (80-100) mm/Hg HCO3 23.1 24.9 (21-28) mmol/L ABG pH 7.24 L 7.53 H (7.35-7.45) ABG Total CO2 27.5 22.5 (22-28) mmol/L ABG O2 Saturation 99.1 H 99.3 H (95-98) % ABG Base Excess -2.4 L -0.1 (-2.0-3.0) mmol/L ABG Hemoglobin 11.0 L 10.4 L (11.7-17.4) g/dL ABG Carboxyhemoglobin 1.0 1.0 (0.5-1.5) % POC ABG HHb (Measured) 0.9 0.7 (0.0-5.0) % ABG Methemoglobin 0.8 1.2 (0.0-3.0) % Tres Test Na Na A-a O2 Difference 477.0 311.0 mm/Hg Respiratory Index 3.0 0.8 Hgb O2 Saturation 97.4 97.1 (95.0-98.0) % Liter Flow 15.0 Vent Mode Prvc Mechanical Rate 19 FiO2 100.0 100.0 % Tidal Volume 500 PEEP 5 Sodium (132-148) mmol/L Potassium (3.6-5.2) mmol/L Chloride (98-107) mmol/L Carbon Dioxide (22-30) mmol/L Anion Gap (10-20) BUN (9-20) mg/dL Creatinine (0.8-1.5) mg/dL Est GFR ( Amer) Est GFR (Non-Af Amer) POC Glucose (mg/dL) 141 H (65-110) mg/dL Random Glucose (75-110) mg/dL Calcium (8.6-10.4) mg/dl Total Bilirubin (0.2-1.3) mg/dL AST (17-59) U/L ALT (21-72) U/L Alkaline Phosphatase (38-126) U/L Total Protein (6.3-8.3) g/dL Albumin (3.5-5.0) g/dL Globulin (2.2-3.9) gm/dL Albumin/Globulin Ratio (1.0-2.1) Toxicology Panel 04/14/18 04/14/18 04/14/18 Range/Units 06:23 06:23 05:47 WBC 9.2 (4.8-10.8) K/uL RBC 3.31 L (4.40-5.90) Mil/uL Hgb 10.4 L (12.0-18.0) g/dL Hct 30.1 L (35.0-51.0) % MCV 90.9 (80.0-94.0) fL MCH 31.3 H (27.0-31.0) pg MCHC 34.4 (33.0-37.0) g/dL RDW 14.4 (11.5-14.5) % Plt Count 107 L (130-400) K/uL MPV 9.6 (7.2-11.7) fL Neut % (Auto) 81.9 H (50.0-75.0) % Lymph % (Auto) 10.8 L (20.0-40.0) % [place] % (Auto) 5.1 (0.0-10.0) % Eos % (Auto) 2.0 (0.0-4.0) % Baso % (Auto) 0.2 (0.0-2.0) % Neut # (Auto) 7.5 H (1.8-7.0) K/uL Lymph # (Auto) 1.0 (1.0-4.3) K/uL [place] # (Auto) 0.5 (0.0-0.8) K/uL Eos # (Auto) 0.2 (0.0-0.7) K/uL Baso # (Auto) 0.0 (0.0-0.2) K/uL Puncture Site pCO2 (35-45) mm/Hg pO2 (80-100) mm/Hg HCO3 (21-28) mmol/L ABG pH (7.35-7.45) ABG Total CO2 (22-28) mmol/L ABG O2 Saturation (95-98) % ABG Base Excess (-2.0-3.0) mmol/L ABG Hemoglobin (11.7-17.4) g/dL ABG Carboxyhemoglobin (0.5-1.5) % POC ABG HHb (Measured) (0.0-5.0) % ABG Methemoglobin (0.0-3.0) % Tres Test A-a O2 Difference mm/Hg Respiratory Index Hgb O2 Saturation (95.0-98.0) % Liter Flow Vent Mode Mechanical Rate FiO2 % Tidal Volume PEEP Sodium 142 (132-148) mmol/L Potassium 3.4 L (3.6-5.2) mmol/L Chloride 111 H (98-107) mmol/L Carbon Dioxide 23 (22-30) mmol/L Anion Gap 11 (10-20) BUN 12 (9-20) mg/dL Creatinine 0.7 L (0.8-1.5) mg/dL Est GFR ( Amer) > 60 Est GFR (Non-Af Amer) > 60 POC Glucose (mg/dL) 118 H (65-110) mg/dL Random Glucose 174 H (75-110) mg/dL Calcium 9.7 (8.6-10.4) mg/dl Total Bilirubin 0.8 (0.2-1.3) mg/dL AST 39 (17-59) U/L ALT 23 (21-72) U/L Alkaline Phosphatase 67 (38-126) U/L Total Protein 6.1 L (6.3-8.3) g/dL Albumin 2.8 L (3.5-5.0) g/dL Globulin 3.3 (2.2-3.9) gm/dL Albumin/Globulin Ratio 0.9 L (1.0-2.1) Toxicology Panel 04/13/18 04/13/18 04/09/18 Range/Units 23:43 18:03 12:30 WBC (4.8-10.8) K/uL RBC (4.40-5.90) Mil/uL Hgb (12.0-18.0) g/dL Hct (35.0-51.0) % MCV (80.0-94.0) fL MCH (27.0-31.0) pg MCHC (33.0-37.0) g/dL RDW (11.5-14.5) % Plt Count (130-400) K/uL MPV (7.2-11.7) fL Neut % (Auto) (50.0-75.0) % Lymph % (Auto) (20.0-40.0) % [place] % (Auto) (0.0-10.0) % Eos % (Auto) (0.0-4.0) % Baso % (Auto) (0.0-2.0) % Neut # (Auto) (1.8-7.0) K/uL Lymph # (Auto) (1.0-4.3) K/uL [place] # (Auto) (0.0-0.8) K/uL Eos # (Auto) (0.0-0.7) K/uL Baso # (Auto) (0.0-0.2) K/uL Puncture Site pCO2 (35-45) mm/Hg pO2 (80-100) mm/Hg HCO3 (21-28) mmol/L ABG pH (7.35-7.45) ABG Total CO2 (22-28) mmol/L ABG O2 Saturation (95-98) % ABG Base Excess (-2.0-3.0) mmol/L ABG Hemoglobin (11.7-17.4) g/dL ABG Carboxyhemoglobin (0.5-1.5) % POC ABG HHb (Measured) (0.0-5.0) % ABG Methemoglobin (0.0-3.0) % Tres Test A-a O2 Difference mm/Hg Respiratory Index Hgb O2 Saturation (95.0-98.0) % Liter Flow Vent Mode Mechanical Rate FiO2 % Tidal Volume PEEP Sodium (132-148) mmol/L Potassium (3.6-5.2) mmol/L Chloride (98-107) mmol/L Carbon Dioxide (22-30) mmol/L Anion Gap (10-20) BUN (9-20) mg/dL Creatinine (0.8-1.5) mg/dL Est GFR ( Amer) Est GFR (Non-Af Amer) POC Glucose (mg/dL) 175 H 171 H (65-110) mg/dL Random Glucose (75-110) mg/dL Calcium (8.6-10.4) mg/dl Total Bilirubin (0.2-1.3) mg/dL AST (17-59) U/L ALT (21-72) U/L Alkaline Phosphatase (38-126) U/L Total Protein (6.3-8.3) g/dL Albumin (3.5-5.0) g/dL Globulin (2.2-3.9) gm/dL Albumin/Globulin Ratio (1.0-2.1) Toxicology Panel see note Laboratory Results - last 24 hr 04/09/18 04/13/18 04/13/18 12:30 18:03 23:43 WBC RBC Hgb Hct MCV MCH MCHC RDW Plt Count MPV Neut % (Auto) Lymph % (Auto) [place] % (Auto) Eos % (Auto) Baso % (Auto) Neut # (Auto) Lymph # (Auto) [place] # (Auto) Eos # (Auto) Baso # (Auto) Puncture Site pCO2 pO2 HCO3 ABG pH ABG Total CO2 ABG O2 Saturation ABG Base Excess ABG Hemoglobin ABG Carboxyhemoglobin POC ABG HHb (Measured) ABG Methemoglobin Tres Test A-a O2 Difference Respiratory Index Hgb O2 Saturation Liter Flow Vent Mode Mechanical Rate FiO2 Tidal Volume PEEP Sodium Potassium Chloride Carbon Dioxide Anion Gap BUN Creatinine Est GFR ( Amer) Est GFR (Non-Af Amer) POC Glucose (mg/dL) 171 H 175 H Random Glucose Calcium Total Bilirubin AST ALT Alkaline Phosphatase Total Protein Albumin Globulin Albumin/Globulin Ratio Toxicology Panel see note 04/14/18 04/14/18 04/14/18 05:47 06:23 06:23 WBC 9.2 RBC 3.31 L Hgb 10.4 L Hct 30.1 L MCV 90.9 MCH 31.3 H MCHC 34.4 RDW 14.4 Plt Count 107 L MPV 9.6 Neut % (Auto) 81.9 H Lymph % (Auto) 10.8 L [place] % (Auto) 5.1 Eos % (Auto) 2.0 Baso % (Auto) 0.2 Neut # (Auto) 7.5 H Lymph # (Auto) 1.0 [place] # (Auto) 0.5 Eos # (Auto) 0.2 Baso # (Auto) 0.0 Puncture Site pCO2 pO2 HCO3 ABG pH ABG Total CO2 ABG O2 Saturation ABG Base Excess ABG Hemoglobin ABG Carboxyhemoglobin POC ABG HHb (Measured) ABG Methemoglobin Tres Test A-a O2 Difference Respiratory Index Hgb O2 Saturation Liter Flow Vent Mode Mechanical Rate FiO2 Tidal Volume PEEP Sodium 142 Potassium 3.4 L Chloride 111 H Carbon Dioxide 23 Anion Gap 11 BUN 12 Creatinine 0.7 L Est GFR ( Amer) > 60 Est GFR (Non-Af Amer) > 60 POC Glucose (mg/dL) 118 H Random Glucose 174 H Calcium 9.7 Total Bilirubin 0.8 AST 39 ALT 23 Alkaline Phosphatase 67 Total Protein 6.1 L Albumin 2.8 L Globulin 3.3 Albumin/Globulin Ratio 0.9 L Toxicology Panel 04/14/18 04/14/18 04/14/18 11:28 15:45 15:55 WBC RBC Hgb Hct MCV MCH MCHC RDW Plt Count MPV Neut % (Auto) Lymph % (Auto) [place] % (Auto) Eos % (Auto) Baso % (Auto) Neut # (Auto) Lymph # (Auto) [place] # (Auto) Eos # (Auto) Baso # (Auto) Puncture Site A line A line pCO2 26 L 60 H pO2 370 H 161 H HCO3 24.9 23.1 ABG pH 7.53 H 7.24 L ABG Total CO2 22.5 27.5 ABG O2 Saturation 99.3 H 99.1 H ABG Base Excess -0.1 -2.4 L ABG Hemoglobin 10.4 L 11.0 L ABG Carboxyhemoglobin 1.0 1.0 POC ABG HHb (Measured) 0.7 0.9 ABG Methemoglobin 1.2 0.8 Tres Test Na Na A-a O2 Difference 311.0 477.0 Respiratory Index 0.8 3.0 Hgb O2 Saturation 97.1 97.4 Liter Flow 15.0 Vent Mode Prvc Mechanical Rate 19 FiO2 100.0 100.0 Tidal Volume 500 PEEP 5 Sodium Potassium Chloride Carbon Dioxide Anion Gap BUN Creatinine Est GFR ( Amer) Est GFR (Non-Af Amer) POC Glucose (mg/dL) 141 H Random Glucose Calcium Total Bilirubin AST ALT Alkaline Phosphatase Total Protein Albumin Globulin Albumin/Globulin Ratio Toxicology Panel Attending/Attestation - Attestation I have personally seen and examined this patient.: Yes I have fully participated in the care of the patient.: Yes I have reviewed all pertinent clinical information: Yes Notes (Text): 04/14/18 16:44 Patient seen and examined in the intensive care unit. No response to painful stimuli no gag or corneal reflexes no flow on brain flow study apnea test positive awaiting Family members to arrive from patient
[2018-04-14 15:48] LABS: ARTERIAL BLOOD GAS HCO3 24.9 mmol/L (21-28); ARTERIAL BLOOD GAS HEMOGLOBIN 10.4 g/dL (11.7-17.4); ARTERIAL BLOOD GAS O2 SAT 99.3 % (95-98); ARTERIAL BLOOD GAS PCO2 26 mm/Hg (35-45); ARTERIAL BLOOD GAS PH 7.53 (7.35-7.45); ARTERIAL BLOOD GAS PO2 370 mm/Hg (80-100); ARTERIAL BLOOD GAS TCO2 22.5 mmol/L (22-28)
[2018-04-14 16:07] LABS: ARTERIAL BLOOD GAS HCO3 23.1 mmol/L (21-28); ARTERIAL BLOOD GAS O2 SAT 99.1 % (95-98); ARTERIAL BLOOD GAS PCO2 60 mm/Hg (35-45); ARTERIAL BLOOD GAS PH 7.24 (7.35-7.45); ARTERIAL BLOOD GAS PO2 161 mm/Hg (80-100); ARTERIAL BLOOD GAS TCO2 27.5 mmol/L (22-28)
--- NOTE | 2018-04-14 19:33 | CP.PCM.PN ---
Subjective - Date & Time of Evaluation Date of Evaluation: 04/14/18 Time of Evaluation: 12:00 - Subjective Subjective: clinically same Objective - Vital Signs/Intake and Output Vital Signs (last 24 hours): Temp Pulse Resp BP Pulse Ox 96.1 F L 72 19 154/83 H 100 04/14/18 16:00 04/14/18 18:00 04/14/18 18:00 04/14/18 16:58 04/14/18 18:00 Intake and Output: 04/14/18 04/15/18 18:59 06:59 Intake Total 990 Output Total 2350 Balance -1360 - Medications Medications: Current Medications Levetiracetam 500 mg/ Dextrose 105 mls @ 420 mls/hr IVPB Q12H [facility] Last Admin: 04/14/18 09:48 Dose: 420 mls/hr - Labs Labs: 04/14/18 06:23 04/14/18 06:23 PT 14.3 SECONDS (9.7-12.2) H 04/12/18 06:10 INR 1.3 04/12/18 06:10 APTT 31 SECONDS (21-34) 04/12/18 06:10 - Constitutional Appears: Well - Head Exam Head Exam: ATRAUMATIC, NORMAL INSPECTION, NORMOCEPHALIC - Eye Exam Eye Exam: EOMI, Normal appearance, PERRL Pupil Exam: NORMAL ACCOMODATION, PERRL - ENT Exam ENT Exam: Mucous Membranes Moist, Normal Exam - Neck Exam Neck Exam: Full ROM, Normal Inspection. absent: Lymphadenopathy - Respiratory Exam Respiratory Exam: Decreased Breath Sounds - Cardiovascular Exam Cardiovascular Exam: REGULAR RHYTHM, +S1, +S2 - GI/Abdominal Exam GI & Abdominal Exam: Soft, Diminished Bowel Sounds - Rectal Exam Rectal Exam: Deferred Assessment and Plan (1) Coma Status: Acute (2) Subarachnoidal hemorrhage Status: Acute (3) Subdural hematoma, post-traumatic Status: Acute (4) H/O diverticulitis of colon Status: Acute (5) Hemorrhoids Status: Acute (6) Hyperlipidemia Status: Acute (7) Hypertension Status: Acute (8) Prophylactic measure Status: Acute (9) Rectal bleeding Status: Acute
[2018-04-15 06:10] VITALS: RESP 19
[2018-04-15] MEDS ORDERED: Potassium Chloride 10 mEq ER Tab PO SCH (08:00)
--- NOTE | 2018-04-15 10:10 | CP.CCUPN ---
CCU Subjective - Physician Review Events Since Last Encounter (Free Text): 04/15/18 10:10 Patient is clinically brain . Awaiting for the family members to come. Possible extubation today CCU Objective - Vital Signs / Intake & Output Vital Signs (Last 4 hours): Vital Signs Temp Pulse Resp BP BP Pulse Ox 04/15/18 09:00 76 19 100 04/15/18 08:30 74 19 82/55 L 100 04/15/18 08:00 99.5 F 75 19 90/52 L 100 04/15/18 07:00 79 19 100 04/15/18 06:30 75 19 89/59 L 100 Intake and Output (Last 8hrs): Intake & Output 04/14/18 04/15/18 04/15/18 22:59 06:59 14:59 Intake Total 100 0 0 Output Total 825 425 40 Balance -725 -425 -40 Intake: Intake, IV Amount 100 Right Distal Port Femoral 100 Right Medial Port Femoral 0 Right Proximal Port 0 Femoral Oral 0 0 0 Output: Urine [phone] 40 Urethral (Jimenez) [phone] 40 Other: # Bowel Movements 0 0 - Physical Exam Head: Positive for: Normocephalic Pupils: Positive for: Non-Reactive Extroacular Muscles: Negative for: EOMI Conjunctiva: Positive for: Normal Mouth: Positive for: Moist Mucous Membranes Pharnyx: Positive for: Normal Nose (External): Positive for: Atraumatic Nose (Internal): Positive for: Normal Inspection Neck: Positive for: Normal Range of Motion Respiratory/Chest: Positive for: Clear to Auscultation Cardiovascular: Positive for: Regular Rate and Rhythm, Normal S1, S2 Abdomen: Negative for: Tenderness Back: Positive for: GCS, CN, SP Upper Extremity: Positive for: Normal Inspection. Negative for: Cyanosis, Edema Lower Extremity: Positive for: Normal Inspection. Negative for: Edema Neurological: Negative for: GCS=15 (GCS-3T) Skin: Positive for: Dry, Normal Color, Cold. Negative for: Rashes Psychiatric: Negative for: Alert, Oriented x 3 - Medications Active Medications: Active Medications Generic Name Dose Route Start Last Admin Trade Name Freq PRN Reason Stop Dose Admin Levetiracetam 500 mg/ Dextrose 105 mls @ 420 mls/hr 04/12/18 22:00 04/15/18 09:13 IVPB 420 mls/hr Q12H [facility] Administration Potassium Chloride 10 meq 04/15/18 08:00 04/15/18 09:18 Klor-Con 10 PO Not Given 0800 [facility] - Patient Studies Lab Studies: Lab Studies 04/14/18 04/14/18 04/14/18 Range/Units 15:55 15:45 11:28 Puncture Site A line A line pCO2 60 H 26 L (35-45) mm/Hg pO2 161 H 370 H (80-100) mm/Hg HCO3 23.1 24.9 (21-28) mmol/L ABG pH 7.24 L 7.53 H (7.35-7.45) ABG Total CO2 27.5 22.5 (22-28) mmol/L ABG O2 Saturation 99.1 H 99.3 H (95-98) % ABG Base Excess -2.4 L -0.1 (-2.0-3.0) mmol/L ABG Hemoglobin 11.0 L 10.4 L (11.7-17.4) g/dL ABG Carboxyhemoglobin 1.0 1.0 (0.5-1.5) % POC ABG HHb (Measured) 0.9 0.7 (0.0-5.0) % ABG Methemoglobin 0.8 1.2 (0.0-3.0) % Tres Test Na Na A-a O2 Difference 477.0 311.0 mm/Hg Respiratory Index 3.0 0.8 Hgb O2 Saturation 97.4 97.1 (95.0-98.0) % Liter Flow 15.0 Vent Mode Prvc Mechanical Rate 19 FiO2 100.0 100.0 % Tidal Volume 500 PEEP 5 POC Glucose (mg/dL) 141 H (65-110) mg/dL Toxicology Panel 04/09/18 Range/Units 12:30 Puncture Site pCO2 (35-45) mm/Hg pO2 (80-100) mm/Hg HCO3 (21-28) mmol/L ABG pH (7.35-7.45) ABG Total CO2 (22-28) mmol/L ABG O2 Saturation (95-98) % ABG Base Excess (-2.0-3.0) mmol/L ABG Hemoglobin (11.7-17.4) g/dL ABG Carboxyhemoglobin (0.5-1.5) % POC ABG HHb (Measured) (0.0-5.0) % ABG Methemoglobin (0.0-3.0) % Tres Test A-a O2 Difference mm/Hg Respiratory Index Hgb O2 Saturation (95.0-98.0) % Liter Flow Vent Mode Mechanical Rate FiO2 % Tidal Volume PEEP POC Glucose (mg/dL) (65-110) mg/dL Toxicology Panel see note Laboratory Results - last 24 hr 04/09/18 04/14/18 04/14/18 12:30 11:28 15:45 Puncture Site A line pCO2 26 L pO2 370 H HCO3 24.9 ABG pH 7.53 H ABG Total CO2 22.5 ABG O2 Saturation 99.3 H ABG Base Excess -0.1 ABG Hemoglobin 10.4 L ABG Carboxyhemoglobin 1.0 POC ABG HHb (Measured) 0.7 ABG Methemoglobin 1.2 Tres Test Na A-a O2 Difference 311.0 Respiratory Index 0.8 Hgb O2 Saturation 97.1 Liter Flow Vent Mode Prvc Mechanical Rate 19 FiO2 100.0 Tidal Volume 500 PEEP 5 POC Glucose (mg/dL) 141 H Toxicology Panel see note 04/14/18 15:55 Puncture Site A line pCO2 60 H pO2 161 H HCO3 23.1 ABG pH 7.24 L ABG Total CO2 27.5 ABG O2 Saturation 99.1 H ABG Base Excess -2.4 L ABG Hemoglobin 11.0 L ABG Carboxyhemoglobin 1.0 POC ABG HHb (Measured) 0.9 ABG Methemoglobin 0.8 Tres Test Na A-a O2 Difference 477.0 Respiratory Index 3.0 Hgb O2 Saturation 97.4 Liter Flow 15.0 Vent Mode Mechanical Rate FiO2 100.0 Tidal Volume PEEP POC Glucose (mg/dL) Toxicology Panel Fingerstick Blood Sugar Results: 118 Assessment/Plan (1) Coma Assessment and plan: Patient is now comatose 2. Not responding. Repeat CAT scan currently pending. Nuclear scan for brain flow also pending Clinically patient has no brainstem reflexes We will continue to monitor the IV fluids. Electrolytes. Hydration. Maintain osmolality near 320. poor prognosis Current Visit: Yes Status: Acute (2) Subarachnoidal hemorrhage Current Visit: Yes Status: Acute (3) Subdural hematoma, post-traumatic Current Visit: Yes Status: Acute
[2018-04-15 12:54] VITALS: TEMP 98.8
--- NOTE | 2018-04-15 15:48 | CP.PCM.PN ---
Subjective - Date & Time of Evaluation Date of Evaluation: 04/15/18 Time of Evaluation: 12:00 - Subjective Subjective: clinically same Objective - Vital Signs/Intake and Output Vital Signs (last 24 hours): Temp Pulse Resp BP Pulse Ox 98.8 F 57 L 19 51/28 L 100 04/15/18 12:00 04/15/18 12:31 04/15/18 12:31 04/15/18 12:31 04/15/18 12:31 Intake and Output: 04/15/18 04/15/18 06:59 18:59 Intake Total 100 100 Output Total 750 60 Balance -650 40 - Medications Medications: Current Medications Levetiracetam 500 mg/ Dextrose 105 mls @ 420 mls/hr IVPB Q12H [facility] Last Admin: 04/15/18 09:13 Dose: 420 mls/hr Potassium Chloride (Klor-Con 10) 10 meq PO 0800 [facility] Last Admin: 04/15/18 09:18 Dose: Not Given - Labs Labs: 04/14/18 06:23 04/14/18 06:23 PT 14.3 SECONDS (9.7-12.2) H 04/12/18 06:10 INR 1.3 04/12/18 06:10 APTT 31 SECONDS (21-34) 04/12/18 06:10 - Constitutional Appears: Well - Head Exam Head Exam: ATRAUMATIC, NORMAL INSPECTION, NORMOCEPHALIC - Eye Exam Eye Exam: EOMI, Normal appearance, PERRL Pupil Exam: NORMAL ACCOMODATION, PERRL - ENT Exam ENT Exam: Mucous Membranes Moist, Normal Exam - Neck Exam Neck Exam: Full ROM, Normal Inspection. absent: Lymphadenopathy - Respiratory Exam Respiratory Exam: Decreased Breath Sounds - Cardiovascular Exam Cardiovascular Exam: REGULAR RHYTHM, +S1, +S2 - GI/Abdominal Exam GI & Abdominal Exam: Soft, Diminished Bowel Sounds - Rectal Exam Rectal Exam: Deferred Assessment and Plan (1) Coma Status: Acute (2) Subarachnoidal hemorrhage Status: Acute (3) Subdural hematoma, post-traumatic Status: Acute (4) H/O diverticulitis of colon Status: Acute (5) Hemorrhoids Status: Acute (6) Hyperlipidemia Status: Acute (7) Hypertension Status: Acute (8) Prophylactic measure Status: Acute (9) Rectal bleeding Status: Acute
[2018-04-15 16:49] VITALS: BP 51/31; PULSE 56
== END 2018-04-15 16:03 | DRG 25 ==
LOC: C.ER 19:12 → C.9I 21:28
PROVIDERS: ADMIT Internal Medicine Nephrology; ATTEND Internal Medicine Nephrology
PROC: 00C40ZZ Extirpation of Matter from Intracranial Subdural Space, Open Approach (ICD-10-PCS; principal; 2018-04-08)
PROC: 5A1955Z Respiratory Ventilation, Greater than 96 Consecutive Hours (ICD-10-PCS; 2018-04-08)
PROC: 0BH17EZ Insertion of Endotracheal Airway into Trachea, Via Natural or Artificial Opening (ICD-10-PCS; 2018-04-08)
DX: S06.5X9A Traumatic subdural hemorrhage with loss of consciousness of unspecified duration, initial encounter (principal); G93.6 Cerebral edema; J96.90 Respiratory failure, unspecified, unspecified whether with hypoxia or hypercapnia; D68.9 Coagulation defect, unspecified; E23.2 Diabetes insipidus; G81.91 Hemiplegia, unspecified affecting right dominant side; K62.5 Hemorrhage of anus and rectum; N17.9 Acute kidney failure, unspecified; W11.XXXA Fall on and from ladder, initial encounter; Y92.009 Unspecified place in unspecified non-institutional (private) residence as the place of occurrence of the external cause; E78.5 Hyperlipidemia, unspecified; E78.00 Pure hypercholesterolemia, unspecified; E83.39 Other disorders of phosphorus metabolism; Z66 Do not resuscitate; I11.9 Hypertensive heart disease without heart failure; J44.9 Chronic obstructive pulmonary disease, unspecified; K64.9 Unspecified hemorrhoids; Z79.84 Long term (current) use of oral hypoglycemic drugs; R40.2430 Glasgow coma scale score 3-8, unspecified time; R47.81 Slurred speech; Y92.002 Bathroom of unspecified non-institutional (private) residence as the place of occurrence of the external cause